=== PATIENT | male | born 1990 | race Caucasian/White ===

== ENCOUNTER 2017-12-16 15:41 | Emergency (ER) | payer MEDICAID, SELFPAY ==
[2017-12-16 15:41] VITALS: BP 135/82; PULSE 76; RESP 15; TEMP 36.2; BMI 29.7
--- NOTE | 2017-12-16 15:56 | ED.VISSUMM ---
- ER Visit Summary Date of Service: 12/16/17 Chief Complaint: Right hand pain History of Present Illness: The patient is a 27 M presenting with right hand pain. Patient states he was at [employer] hanging a banner. He became very frustrated and punched the wall. He is right-handed. He now complains of pain in his right hand. This occurred 30 minutes prior to arrival. No other injuries. Physical Examination: Vitals are stable. Patient is afebrile. Alert no acute distress. HEENT exam is unremarkable. Lungs are clear and equal bilaterally. Heart is regular rate and rhythm. Extremities right 5th metatarsal tenderness with mild swelling. No wrist or elbow tenderness. Painful range of motion. Skin is warm and dry. No focal neurologic deficit. Remainder of exam is unremarkable. Emergency Department Course and Treatment: X-ray of the right hand shows a comminuted fracture of the distal shaft of the fifth metacarpal with moderately severe dorsal angulation deformity at the fracture site. There is also demonstrated a boxer fracture of the distal fourth metacarpal with mild dorsal angulation deformity. Ulnar nerve block was performed using ultrasound. Closed reduction of fracture was attempted. He was put in Ortho-Glass ulnar gutter splint. Advised to follow-up with orthopedics. Advised return ED for worsening complaints. Disposition: Discharge home Impression: Right fourth and fifth metacarpal fracture This note was generated with [employer] dictation software. It may contain incorrect words, spelling, and punctuation that were not noted in review of the chart prior to signing ED Disposition - Plan for ED Patient: Chief Complaint: Upper Extremity Injury Referrals: Care Physician,No Primary [Primary Care Provider] -
--- NOTE | 2017-12-16 16:15 | RAD_ITS ---
STUDY: X-RAY - RIGHT HAND REASON FOR EXAM: Male, 27 years old. Trauma TECHNIQUE: 3 view(s) of the hand. COMPARISON: None. FINDINGS: Normal radiocarpal articulation. Normal distal radioulnar joint. Normal visualized carpal bones. Normal carpal articulations Normal carpometacarpal articulation of the thumb. Normal second through fifth carpometacarpal joints. There is a comminuted fracture of the distal shaft of the fifth metacarpal with moderately severe dorsal angulation deformity at the fracture site. There is also demonstrated a boxer fracture of the distal fourth metacarpal with mild dorsal angulation deformity. Normal metacarpophalangeal joint of the thumb. Normal interphalangeal joint of the thumb. Normal proximal and distal phalanges of the thumb. Normal metacarpophalangeal joints of the second through fifth fingers. Normal proximal and distal interphalangeal joints of the second through fifth fingers. Normal phalanges of the second through fifth fingers. The soft tissue structures are unremarkable. RAD/Hand Min 3 Views IMPRESSION: Fourth and fifth metacarpal fractures as detailed above. Electronically Signed: Zeb Garcia MD at 16:26 EDT , Service support ,
--- NOTE | 2017-12-16 16:48 | ED.DCSUM_ITS ---
- ER Visit Summary Date of Service: 12/16/17 Procedure note: Patient was verbally consented for a ultrasound-guided ulnar nerve block. Patient understands the risks and benefits of the procedure. Patient's ulnar nerve was identified by ultrasound, than his arm was prepped with chlorhexidine. 22-gauge spinal needle was used, and under direct visualization the ulnar nerve had 10 cc 1% lidocaine injected surrounding it. Patient tolerated this well. This note was generated with [employer] dictation software. It may contain incorrect words, spelling, and punctuation that were not noted in review of the chart prior to signing ED Disposition - Plan for ED Patient: Chief Complaint: Upper Extremity Injury Referrals: Care Physician,No Primary [Primary Care Provider] -
--- NOTE | 2017-12-16 17:09 | ED.DEP ---
ED Disposition - Plan for ED Patient: Chief Complaint: Upper Extremity Injury Instructions: ED Fx Hand Closed, ED Fx Boxer Prescriptions: Naproxen [Naprosyn] 500 mg PO BID PRN #20 tablet Referrals: Care Physician,No Primary [Primary Care Provider] - Mykel Pena MD [STAFF PHYSICIAN] -
[2017-12-16 17:18] VITALS: BP 129/76; PULSE 83; RESP 16; O2SAT 99
== END 2017-12-16 17:18 | disposition home or self-care (01) ==
PROVIDERS: Emergency Provider Emergency Medicine
DX: S62.326A Displaced fracture of shaft of fifth metacarpal bone, right hand, initial encounter for closed fracture (principal); S62.304A Unspecified fracture of fourth metacarpal bone, right hand, initial encounter for closed fracture; W22.01XA Walked into wall, initial encounter; Y93.9 Activity, unspecified; Y92.22 Religious institution as the place of occurrence of the external cause; Y99.8 Other external cause status
CPT/HCPCS: 26605; 73130; 99282

== ENCOUNTER 2019-07-06 14:34 | Emergency (ER) | payer MEDICAID, SELFPAY ==
[2019-07-06 14:35] VITALS: BP 124/71; PULSE 88; RESP 15; TEMP 37.1; O2SAT 96; BMI 24.3
[2019-07-06 14:56] VITALS: TEMP 36.3
--- NOTE | 2019-07-06 14:57 | ED.RN ---
MULTIPLE BITES IN VARIOUS LOCATIONS AND VARIOUS SIZES ON R FOREARM AND HAND. STATES ANOTHER DOG CAME INTO HIS YARD AND BIT HIM.
--- NOTE | 2019-07-06 14:59 | RAD_ITS ---
STUDY: X-RAY - RIGHT RADIUS AND ULNA REASON FOR EXAM: Male, 29 years old. Multiple puncture wounds to the right. TECHNIQUE: 2 view(s) of the forearm. COMPARISON: None. FINDINGS: Soft tissue laceration overlying the proximal aspect of the ulna. Normal visualized radius. Normal visualized ulna. RAD/Forearm 2 Views IMPRESSION: Soft tissue laceration overlying the proximal portion of the ulna. Electronically Signed: Govind Gamez, at 15:43 EDT , Service support ,
--- NOTE | 2019-07-06 14:59 | RAD_ITS ---
STUDY: X-RAY - RIGHT HAND REASON FOR EXAM: Male, 29 years old. Dogbite. Puncture wounds. TECHNIQUE: 3 view(s) of the hand. COMPARISON: None. FINDINGS: Normal radiocarpal articulation. Normal distal radioulnar joint. Normal visualized carpal bones. Normal carpal articulations Normal carpometacarpal articulation of the thumb. Normal second through fifth carpometacarpal joints. Deformity of the right fifth metacarpal in keeping with old boxer fracture. Normal metacarpophalangeal joint of the thumb. Normal interphalangeal joint of the thumb. Normal proximal and distal phalanges of the thumb. Normal metacarpophalangeal joints of the second through fifth fingers. Normal proximal and distal interphalangeal joints of the second through fifth fingers. Normal phalanges of the second through fifth fingers. Soft tissue swelling. RAD/Hand Min 3 Views IMPRESSION: No acute abnormality is seen. Electronically Signed: Govind Gamez, at 15:42 EDT , Service support ,
--- NOTE | 2019-07-06 15:01 | ED.VIS.GEN ---
History of Present Illness Chief Complaint: Bite Informant: Patient Onset: Today Context: Sudden Onset Timing: Continuous Narrative: Patient is a 29-year-old male with history of heroin abuse presenting with dog bite to his right arm and hand. Patient states this occurred just prior to arrival. He was in his backyard laying his dogs go out when another dog came and started attacking his dog. The patient jumped up and pulled the dog off of of his dog. The dog then bit his hand and would not let go. The patient dried the dog away and had to kick him off. He is not sure if the dog was wearing a collar did not recognize the dog. There is no orders. Patient immediately came to the emergency room. He complained of pain which she describes as aching in his right forearm and hand. He denies any associated numbness or tingling. Patient denies any other injuries. He states he is never had rabies vaccine before. Patient is unsure when his last tetanus was. Past Medical History - Allergies and Home Meds Allergies/Adverse Reactions: Allergies No Known Allergies Allergy (Verified 07/06/19 14:34) Primary Care Physician: Care Physician,No Primary [Primary Care Provider] - Past Medical History: None Surgical History: no surgical history Smoking Status: Never smoker Drugs: Heroin - Family History Paternal Family History: Reports: - - addiction, father and grandpa alcoholic, uncle heroin. Review of Systems Skin: Reports: Wounds - right hand/forearm Physical Exam Vital Signs/Narrative: Vital Signs Temp Pulse Resp BP Pulse Ox 07/06/19 14:56 97.4 F L 07/06/19 14:35 98.7 F 88 15 124/71 H 96 Inital Vital Signs reviewed: Yes General: Well nourished, Well developed, No Acute Distress Head: Normocephalic, Atraumatic Eyes: Perrl, EOMI ENT: Moist mucous membranes, No rhinorrhea Neck: Supple, Nontender Cardiovascular: Regular rate, Regular rhythm, No murmurs Respiratory: No distress, CTA bilaterally, Chest nontender Back: Nontender, Normal Inspection Extremities: Tenderness - right forearm/hand , Edema - right forearm , - - Normal range of motion and strength in all extremity dermatomes Skin: No rash, Trauma - Scattered puncture wounds and abrasions on right hand over palmar aspect as well as third and fourth fingers on the dorsal aspect, 1 cm puncture wound palmar aspect of fifth metacarpal. 1.5 cm puncture wound ulnar aspect of proximal/mid forearm. Neurological: Alert, Oriented x3, Cranial nerves II-XII grossly intact, Normal Strength, Normal Sensation Psychological: Normal affect, Normal Mood Diagnostic/Tx/Re-eval Diagnostic Data Forearm X-Ray 07/06/19 14:59 IMPRESSION: Soft tissue laceration overlying the proximal portion of the ulna. Electronically Signed: Govind Franco, at 15:43 EDT , Service support , Hand X-Ray 07/06/19 14:59 IMPRESSION: No acute abnormality is seen. Electronically Signed: Govind Franco, at 15:42 EDT , Service support , - Medical Decision Making Patient is evaluated for dog bite. Vaccination status of the dog is unknown and he demonstrated aggressive behavior. Patient was treated empirically for rabies with immunoglobulin as well as toxin. His tetanus is also up-to-date. X-ray does not show any retained foreign bodies. Patient will be started on Augmentin to prevent secondary infection. Laceration repair is not performed as the lacerations are small and because of increased risk of infection. Patient is counseled on signs and symptoms requiring return to the emergency room. Patient verbalizes agreement and understand this plan. Patient discharged home in stable and improved condition. ED Disposition - Plan for ED Patient: Disposition: Home or Assisted Living Diagnosis: Dog bite, Need for Tdap vaccination, Rabies, need for prophylactic vaccination against Instructions: Dog Bite Prescriptions: Amoxicillin/Potassium Clav [Augmentin 875-125 Tablet] 1 ea PO BID #20 tab Prescription Printed Ibuprofen 600 mg PO 4X/DAY PRN #20 tab PRN Reason: Pain Or Fever Prescription Printed Referrals: Fast,Ana, DO [NON-STAFF] - Additional Instructions: Return to the emergency room if you develop any signs of infection such as increased pain, pussy discharge/drainage or redness around the site. Please return for your scheduled tetanus vaccines on day 3, 7 and 14.
[2019-07-06] MEDS: Ibuprofen 600 MG Tablet PO (15:27)
[2019-07-06] MEDS: Diphth,Pertuss(Acell),Tet Vac 0.5 ML Vial IM (15:27)
[2019-07-06] MEDS: Acetaminophen 500 MG Tablet 1000 MG PO (15:27)
[2019-07-06] MEDS: Rabies Vaccine,Human Diploid 2.5 UNITS Vial IM (15:28)
[2019-07-06 16:18] VITALS: BP 112/74; PULSE 76; RESP 18; O2SAT 99
[2019-07-06] MEDS: hydrOXYzine PAM 25 MG Capsule 50 MG PO (16:24)
[2019-07-06] MEDS: BACITRACIN 15 GM Tube 1 APPLIC TOPICAL (16:32)
== END 2019-07-06 16:33 | disposition home or self-care (01) ==
PROVIDERS: Emergency Provider Emergency Medicine
DX: S51.831A Puncture wound without foreign body of right forearm, initial encounter (principal); W54.0XXA Bitten by dog, initial encounter; Y93.9 Activity, unspecified; Y92.096 Garden or yard of other non-institutional residence as the place of occurrence of the external cause; Y99.9 Unspecified external cause status; Z23 Encounter for immunization
CPT/HCPCS: 73090; 73130; 90375; 90471; 90675; 90715; 96372; 99283

== ENCOUNTER 2019-07-06 23:20 | Emergency (ER) | payer MEDICAID, SELFPAY ==
[2019-07-06 14:35] VITALS: BMI 24.3
[2019-07-06 23:22] VITALS: BP 152/116; PULSE 137; RESP 18; TEMP 36.8; O2SAT 93; BMI 23.1
[2019-07-06 23:29] VITALS: PULSE 136
[2019-07-06 23:47] VITALS: BP 114/79; PULSE 108; RESP 20; O2SAT 96
--- NOTE | 2019-07-06 23:51 | EKG12_ITS ---
Test Reason : Blood Pressure : / mmHG Vent. Rate : 112 BPM Atrial Rate : 112 BPM P-R Int : 130 ms QRS Dur : 098 ms QT Int : 344 ms P-R-T Axes : 051 074 040 degrees QTc Int : 469 ms Sinus tachycardia Incomplete right bundle branch block Borderline ECG Confirmed by EDEN COLEMAN, TODD ([id number]), editor sound KAREN LAKHANI ([id number]) on 07/13/2019 11:19:04 AM Referred By: Confirmed By:TODD HARMON MD
--- NOTE | 2019-07-07 00:31 | ED.DCSUM_ITS ---
- ER Visit Summary Date of Service: 07/07/19 Chief Complaint: Reported syncope History of Present Illness: The patient is a 29 M who was found passed out on the road. He woke for police and EMS was called. They noted a heart rate in the 150s. Patient tells me that earlier today he was seen for dog bite. He tells me now (which is different from what he told the earlier physician on the prior visit) that he was watching a dog for a lady who drives truck. After the dog bit him he kept that dog in his garage and the dog was trying to tear down his back door from the garage. This caused him great anxiety and he felt trapped in his house. So after the lady picked up the dog he went for a walk w ith his own dog. He states that he was doing a walk to help calm down. He states his anxiety caused him to pass out in the street. He reportedly told EMS that he had taken something. He now denies this to me and the police. Physical Examination: Afebrile vital signs show a tachycardic rhythm and rate of 160 Gen: Well-nourished well-developed Head: Normocephalic there are facial abrasions nose no septal hematoma Eyes: Perrl EOMI ENT: TMs clear no rhinorrhea moist mucous membranes Neck: Supple no lymphadenopathy no JVD nontender CVS: Regular rate rhythm no murmurs normal S1-S2 Respiratory: No distress clear to auscultation bilaterally chest nontender Abdomen: Soft nontender nondistended normal bowel sounds no masses Back: Nontender Extremity: Unkept bandage to the right forearm from his prior ER visit and abrasion/dog bites noted no edema Skin: Normal color no rash Neuro: alert orientated ?3 CN II-XII intact normal strength sensation reflexes gait cerebellar Psych: Patient seems hyper alert he continuously rubs his face he is directable but is aggressively talking as we try to ask him what happened to him Test Results: EKG shows a sinus tach at a rate of 112. This was compared to prior EKG when is admitted for an overdose and does not appear different Emergency Department Course and Treatment: Patient will be discharged home. His prior wounds were redressed. The police are going to give him a ride home and see if they can help find his dog. Impression: 1. Syncope 2. Anxiety 3. Facial abrasions This note was generated with [email or web address] dictation software. It may contain incorrect words, spelling, and punctuation that were not noted in review of the chart prio r to signing ED Disposition - Plan for ED Patient: Disposition: Home or Assisted Living Instructions: Anxiety Reaction, SYNCOPE, Unk Cause Referrals: Yudy Winter MD [STAFF PHYSICIAN] - As soon as possible
[2019-07-07 00:36] VITALS: PULSE 114; O2SAT 96
== END 2019-07-07 00:37 | disposition home or self-care (01) ==
PROVIDERS: Emergency Provider Emergency Medicine
DX: R55 Syncope and collapse (principal); F41.9 Anxiety disorder, unspecified; S00.81XA Abrasion of other part of head, initial encounter; W54.0XXA Bitten by dog, initial encounter; Y92.59 Other trade areas as the place of occurrence of the external cause
CPT/HCPCS: 93005; 99285

== ENCOUNTER 2019-07-07 13:57 | Inpatient (IN) | payer MEDICAID, SELFPAY ==
[2019-07-06 23:22] VITALS: BMI 23.1
[2019-07-07] VITALS (25 sets, daily range): BP systolic 86–202; BP diastolic 51–134; PULSE 96–156; RESP 12–36; TEMP 35.4–37.9; O2SAT 52–100; BMI 24.7; BMI 22.4
--- NOTE | 2019-07-07 14:05 | EKG12_ITS ---
Test Reason : OD Blood Pressure : / mmHG Vent. Rate : 130 BPM Atrial Rate : 130 BPM P-R Int : 126 ms QRS Dur : 082 ms QT Int : 308 ms P-R-T Axes : 062 082 054 degrees QTc Int : 453 ms Sinus tachycardia Otherwise normal ECG Confirmed by SADIA COLEMAN, YONI ([id number]), desk editor KAREN LAKHANI ([id number]) on 07/13/2019 10:13:59 AM Referred By: Kiana Darby Confirmed By:YONI MCCULLOUGH MD
--- NOTE | 2019-07-07 14:05 | CPS ---
Patient placed on BiPAP at this time per order. Patient tolerating well.
--- NOTE | 2019-07-07 14:05 | RAD_ITS ---
STUDY: X-RAY CHEST REASON FOR EXAM: Male, 29 years old. Overdose, found face down TECHNIQUE: Single AP portable view of the chest. COMPARISON: 01/12/2017 FINDINGS: EKG leads project over the chest. Bilateral upper lobe interstitial and airspace opacities are identified with additional opacity in the left lower lobe. There is no demonstrated pleural abnormality. Normal size heart. Normal mediastinum and brendon. Normal visualized pulmonary arteries. Normal visualized aortic arch and descending thoracic aorta. No acute bony process. There is no demonstrated abnormality of the visualized soft tissue structures of the upper abdomen. RAD/Chest 1 View (Portable) IMPRESSION: Multilobar mixed infiltrates suggesting pulmonary edema or pneumonia. Electronically Signed: Tacho Arzola MD ([place]) at 14:56 EDT , Service support ,
--- NOTE | 2019-07-07 14:10 | CT_ITS ---
STUDY: CT BRAIN WITHOUT CONTRAST REASON FOR EXAM: Male, 29 years old. Overdose, found face down, facial lacerations RADIATION DOSAGE (If Supplied By Facility): CTDIvol = ( 44.99 ) mGy, DLP = ( 829.85 ) mGycm TECHNIQUE: Transaxial CT imaging of the brain was performed without administration of intravenous contrast material. Individualized dose optimization techniques were used for this CT. COMPARISON: No relevant priors. FINDINGS: Normal soft tissue structures. Normal calvarium. Normal size ventricles and extra-axial spaces for the patient's age. Normal white matter tracts of the cerebral hemispheres. Normal basal ganglia and thalami. Normal brainstem. Normal cerebellum. There is no intracranial hemorrhage. There are no findings of an acute ischemic infarction. Normal visualized paranasal sinuses. CT/Brain/Head without Contrast IMPRESSION: No acute intracranial hemorrhage or mass effect. Electronically Signed: Tacho Arzola MD ([place]) at 14:59 EDT , Service support ,
[2019-07-07 14:26] LABS: Absolute Lymphocyte Count 1.87 X10^3/uL (0.83-4.51); Absolute Neutrophil Count 17.5 X10^3/uL (2.0-7.7); Basophil# 0.07 X10^3/uL; Basophil% 0.3 % (0-1); Eosinophil# 0.11 X10^3/uL; Eosinophils% 0.5 % (0-5); Hematocrit 50.7 % (40-54); Hemoglobin 16.3 g/dL (13.0-16.5); Lymphocyte # 1.87 X10^3/ul (4.0); Lymphocyte % 9.3 % (19-41); Mean Corp Hgb Conc 32.1 g/dL (32-36); Mean Corpuscular Hgb 30.9 pg (27.0-32.0); Mean Platelet Vol. 10.1 fl (6.2-12.0); Monocyte# 0.48 X10^3/uL; Monocyte% 2.4 % (0-10); NRBC Flagged by Analyzer 0 % (0-5); Neutrophil # 17.52 X10^3/uL (2.7-7.7); Platelet Count 282 K/mm3 (150-450); RBC Distribution Width CV 13.5 % (11.6-14.6); RBC Distribution Width SD 48.1 fl (35.1-43.9); Red Blood Count 5.28 M/mm3 (4.6-6.2); White Blood Count 20.2 K/mm3 (4.4-11.0)
--- NOTE | 2019-07-07 14:37 | ED.DCSUM_ITS ---
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 EMS states that he was found at the [facility], face down. When they were able to arrive to home he was able to sit up on his own, appeared cyanotic, had increased work of breathing. He was given 1 mg of Narcan intranasally. Was then given 0.5 mg of Narcan IV. Symptoms did improve somewhat. Patient remained cyanotic. Patient does admit he snorted heroin earlier today. Denies any other drug use. Denies any IV drug use. Patient was to dyspnea. Denies any recent illness. History is somewhat limited secondary to patient's increased work of breathing Past Medical History - Allergies and Home Meds Allergies/Adverse Reactions: Allergies No Known Allergies Allergy (Verified 07/07/19 14:02) Surgical History: no surgical history Smoking Status: Current every day smoker Drugs: Heroin - Family History Paternal Family History: Reports: - - addiction, father and grandpa alcoholic, uncle heroin. Maternal Family History: Reports: No pertinent history Review of Systems ROS: Unable to Obtain - Limited secondary to respiratory distress General: Reports: Chills Respiratory: Reports: Dyspnea, Cough Gastrointestinal: Denies: Nausea, Vomiting Skin: Reports: Wounds Physical Exam Vital Signs/Narrative: Vital Signs Temp Pulse Resp BP Pulse Ox 07/07/19 14:06 88 07/07/19 14:05 136 H 24 H 111/98 H 100 07/07/19 14:04 124 H 32 H 52 07/07/19 13:57 95.8 F L 129 H 30 H 143/94 H 59 General: Acute Distress Head: - - Abrasions over bridge of nose Eyes: Perrl, EOMI ENT: Moist mucous membranes Cardiovascular: Tachycardia Respiratory: Retractions, - - Patient has diffuse crackles throughout all lung red, increased work of breathing, hypoxic Abdomen: Soft, Nontender Back: Normal Inspection Extremities: No edema, - - Patient has numerous small wounds over left hand secondary to dog bite last night. He was seen in the ED for this. Neurological: Alert Diagnostic/Tx/Re-eval Clinical Impression(s) from Imaging Studies Chest X-Ray 07/07/19 14:05 IMPRESSION: Multilobar mixed infiltrates suggesting pulmonary edema or pneumonia. Electronically Signed: Tacho Arzola MD (Brooks) at 14:56 EDT , Service support , Brain CT 07/07/19 14:10 IMPRESSION: No acute intracranial hemorrhage or mass effect. Electronically Signed: Tacho Arzola MD (Brooks) at 14:59 EDT , Service support , Laboratory Data 07/07/19 07/07/19 07/07/19 14:10 14:10 14:10 WBC 20.2 H RBC 5.28 Hgb 16.3 Hct 50.7 MCV 96.0 H MCH 30.9 MCHC 32.1 RDW Std Deviation 48.1 H RDW Coeff of Zari 13.5 Plt Count 282 MPV 10.1 Immature Gran % (Auto) 0.500 Neut % (Auto) 87.0 H Lymph % (Auto) 9.3 L [place] % (Auto) 2.4 Eos % (Auto) 0.5 Baso % (Auto) 0.3 Absolute Neuts (auto) 17.5 H Absolute Lymphs (auto) 1.87 Nucleated RBC % 0 PT 14.5 INR 1.2 APTT 30.3 Specimen Type Sample Site pH Bicarbonate Actual POC Total CO2 Base Excess O2 Saturation O2 % ABG pCO2 ABG pO2 Kofi Test Respiration Rate O2 Delivery Device EPAP IPAP Blood Gas Notified Whom Blood Gas Notified Time Sodium 139 Potassium 4.0 Chloride 103 Carbon Dioxide 25.0 Anion Gap 11 BUN 13 Creatinine 1.07 Estim Creat Clear Calc 104.23 Est GFR (MDRD) Af Amer 104 Est GFR (MDRD) Non-Af 86 BUN/Creatinine Ratio 12.1 Glucose 267 H Lactic Acid Calcium 8.6 Total Bilirubin 0.30 AST 21 ALT 39 Alkaline Phosphatase 80 Total Creatine Kinase 279 Troponin I < 0.015 Total Protein 7.9 Albumin 4.2 Globulin 3.7 Albumin/Globulin Ratio 1.1 07/07/19 07/07/19 14:10 14:35 WBC RBC Hgb Hct MCV MCH MCHC RDW Std Deviation RDW Coeff of Zari Plt Count MPV Immature Gran % (Auto) Neut % (Auto) Lymph % (Auto) [place] % (Auto) Eos % (Auto) Baso % (Auto) Absolute Neuts (auto) Absolute Lymphs (auto) Nucleated RBC % PT INR APTT Specimen Type ART Sample Site R Radial pH 7.12 L* Bicarbonate Actual 21.1 L POC Total CO2 23 Base Excess -8 L O2 Saturation 96 O2 % 100 ABG pCO2 65.3 H ABG pO2 112 H Kofi Test NA Respiration Rate 12 O2 Delivery Device Bi / C PAP EPAP 8 IPAP 18 Blood Gas Notified Whom ED Blood Gas Notified Time 1433 Sodium Potassium Chloride Carbon Dioxide Anion Gap BUN Creatinine Estim Creat Clear Calc Est GFR (MDRD) Af Amer Est GFR (MDRD) Non-Af BUN/Creatinine Ratio Glucose Lactic Acid 7.2 H* Calcium Total Bilirubin AST ALT Alkaline Phosphatase Total Creatine Kinase Troponin I Total Protein Albumin Globulin Albumin/Globulin Ratio Clinical Impression(s) from Imaging Studies Chest X-Ray 07/07/19 14:05 IMPRESSION: Multilobar mixed infiltrates suggesting pulmonary edema or pneumonia. Electronically Signed: Tacho Arzola MD (Brooks) at 14:56 EDT , Service support , Brain CT 07/07/19 14:10 IMPRESSION: No acute intracranial hemorrhage or mass effect. Electronically Signed: Tacho Arzola MD (Brooks) at 14:59 EDT , Service support , - EKG Initial EKG Interpretation: - - Sinus tachycardia 130 bpm, TX interval 126, QRS 82, QTc 453. Normal axis, artifact at baseline. No ST elevation, ST depression noted. - Medical Decision Making Patient was evaluated after reported overdose. He admits to using heroin. He was found outside. On initial evaluation he was tachycardic, tachypneic, hypoxic and hypothermic. Septic work-up initiated. Patient was quickly placed on BiPAP. ABG shows a pH of 7.11, PCO2 of 65, PO2 of 112. Patient had leukocytosis of 20. Patient's lactic acidosis was 7.1. CT brain was negative. Chest x-ray showed infiltrate versus pulmonary edema. My initial suspicion is that patient may have pulmonary edema secondary to his heroin overdose and then developed a secondary aspiration pneumonia. Patient placed on vancomycin and Zosyn. At this time given patient's hypoxia, pulmonary edema on chest x-ray he would not be given a 30 cc/kg of IV fluid. Case discussed with Dr. Carter and on-call medicine physician, Dr. Aldridge. ABG will be repeated. Patient will be admitted to ICU. On reevaluation patient's heart rate improved to 120s, he was satting 100% on BiPAP. Prior to patient being transferred to ICU he began to have emesis, frothy sputum. He appeared to be fatiguing. At this time it was decided to intubate the patient. Patient was intubated using 20 mg of etomidate, 1 mg/per kilogram of rocuronium. Intubated under direct laryngoscopy with a 7.5 tube on first attempt. ET tube at 23 cm at patient's lip. Post intubation x-ray obtained. Tube was retracted 2 cm. He was then sedated with propofol and admitted to the ICU. Impression: 1. Acute hypoxic respiratory failure 2. Heroin overdose 3. Pulmonary edema 4. Likely aspiration pneumonia 5. Lactic acidosis 6. Critical care time 33 minutes. 7. Intubation by ED physician. I supervised the resident and have performed my own pertinent history and physical. Results and treatment plan were discussed. HPI: Patient was seen in the emergency department for a dog bite. He he was found today face down in a park. He reports that he snorted heroin. He denies IV drug abuse. He received Narcan on the way here. He is now alert and appropriate. However, his pulse ox is in the 50s. He denies any respiratory illness that preceded this. PE: Vitals: Awake and alert. Pulse ox in the 50s. Heart rate in the 120s. General: Well-nourished and well-developed. Head: Normocephalic, abrasions to his nose. Neck: Supple, no lymphadenopathy. No JVD. Nontender. Cardiovascular: Tachycardic regular rhythm. No murmurs. Respiratory: Severe respiratory distress. Rhonchi throughout bilaterally.. Abdominal: Soft, nontender, nondistended, normal bowel sounds. No guarding, rebound, or peritoneal signs. Back: Nontender. Extremities: Nontender, no edema. No track desir or evidence of abscess. Skin: Normal color, no rash. Neurologic: Alert and oriented ?3. Cranial nerves II through XII are intact. Normal strength and sensation. Psych: Normal affect. Emergency Department course: Patient was alert on arrival. He did not require any further Narcan. He was placed on BiPAP. ABG was obtained and shows a pH of 7.1. This is a mixed respiratory and metabolic acidosis. Lactic acid is 7. Patient was given Zosyn and vancomycin IV due to the chance of aspiration and the potential for MRSA with questionable bilateral infiltrates. He was not given a 30 cc/kg bolus of normal saline due to the question of pulmonary edema. I suspect the lactic acidosis is due to global hypoxia rather than sepsis at this time. On repeat evaluation the patient is still awake and alert. He reports that he feels 100% better. His pulse ox is 100%. However, on repeat ABG his pH is still 7.2 and his O2 was 125 on 90% by BiPAP. I discussed the possibility the patient is going to worsen. He does not want to be intubated unless he does worsen. Prior to being transferred to the emergency department patient vomited and then began coughing up pink frothy sputum. He is no longer a suitable candidate for BiPAP. I discussed this with him and he has agreed to intubation. He was preoxygenated on BiPAP. He was given rocuronium and etomidate. Intubated on the first attempt. His pulse ox did not ever decrease below 90% during this. He tolerated it well. Treatment Plan: Patient was discussed with Dr. Carter and Dr. Darby. He will be admitted to the ICU for further evaluation and treatment. This note was generated with [employer] dictation software. It may contain incorrect words, spelling, and punctuation that were not noted in review of the chart prio r to signing. - Critical Care Time Critical care time (excluding procedures): 30-74 minutes, Discussing w/Patient &/or Family/Instrument Designer, Discussing w/Consultants, Arranging Admission or Transfer, Performing Direct Patient Care at Bedside ED Disposition - Plan for ED Patient: Disposition: [facility]
[2019-07-07 14:38] LABS: International Normalized Ratio 1.2; Partial Thromboplast Time 30.3 Seconds (24.1-36.2); Prothrombin Time (Protime)PT. 14.5 SECONDS (11.7-14.9)
--- NOTE | 2019-07-07 14:38 | ED.RN ---
pt has family in waiting area. rn assisting with care called and is aware. jacqueline oviedo, [phone]
[2019-07-07 14:43] LABS: ALB/GLOB Ratio 1.1 RATIO (0.9-2.4); AST(SGOT) 21 U/L (15-37); Alanine Aminotransfer ALT/SGPT 39 U/L (16-61); Albumin, Serum 4.2 g/dL (3.2-5.0); Alkaline Phosphatase 80 U/L (45-117); Anion Gap 11 (5-15); BUN 13 mg/dL (7-18); BUN/Creat Ratio 12.1 RATIO (10-20); CPK Total, Creatine Kinase 279 U/L (39-308); Calcium,Total 8.6 mg/dL (8.5-10.1); Chloride 103 mmol/L (98-107); Creatinine, Serum 1.07 mg/dL (0.70-1.30); EST Glomerular Filtration Rate 86 mL/min (>60); Est Glom Filt Rate - Afr Amer 104 mL/min (>60); Estimated Creatinine Clearance 104.23 ml/min; Globulin 3.7 g/dL (2.2-4.2); Glucose 267 mg/dL (74-106); Protein, Total 7.9 g/dL (6.4-8.2); Sodium Level 139 mmol/L (136-145)
--- NOTE | 2019-07-07 14:43 | CPS ---
Critical PH of 7.[address] Huitron notified
[2019-07-07 14:46] LABS: Base Excess -8 mmol/L (-2 to +2); Bicarbonate 21.1 mmol/L (22-26); Blood Gas Specimen Type ART; EPAP 8; FI02 100; IPAP 18; PO2 112 mmHG (75-100); RR 12; SITE R Radial; SO2 96 % (95-99); Time Given 1433; Total Carbon Dioxide 23 mmol/L; pCO2 65.3 mmHg (35-45); pH 7.12 (7.35-7.45)
[2019-07-07 15:10] LABS: Lactic Acid 7.2 mmol/L (0.4-2.0)
--- NOTE | 2019-07-07 15:12 | ED.RN ---
LACTIC 7.[address] THE LAB. DR TODD AWARE
--- NOTE | 2019-07-07 15:41 | HP.PCM_ITS ---
Problem List (1) Unresponsiveness Status: Acute (2) Respiratory failure Status: Acute Qualifiers: Chronicity: acute Respiratory failure complication: hypoxia and hypercapnia Qualified Code(s): J96.01 - Acute respiratory failure with hypoxia; J96.02 - Acute respiratory failure with hypercapnia (3) Polysubstance (including opioids) dependence with physiol dependence Status: Acute (4) Nicotine abuse Status: Acute (5) Lactic acidosis Status: Acute History of Present Illness Date of Admission: 07/07/19 Chief Complaint: Unresponsiveness, altered mental status - 1 day The patient is a 29 year old M with no significant past medical history who was found lying face down and unresponsive. The EMS were called for a male lying in the pavilion and acting erratic. There was a [place] Patel dog with him. Upon arrival, patient was lying facedown, unresponsive and the [place] Pat[place] dog apparently charged several times at squad personnel. [place] police department arrived on scene and secured the dog. At that point, patient was said to be sitting up. Pupils were said to be pinpoint and not responsive. Patient was also seen scratching his face. His initial pulse ox was in the low 60s. He appears cyanotic. He was given 2 mg Narcan intranasally. He was not responding to well and received an extra 1 mg IV Narcan. He then became more responsive and started to answer questions. Patient was seen in the emergency department 2 times a day before admission. He had come in initially with multiple dog bites on his right hand and forearm. He had reported back to the emergency department later that night after he was found by the police department unresponsive. He admitted to feeling anxious. He was discharged home. 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 He reportedly got multiple dog bites yesterday on his right upper extremity when he tried to separate some dogs that were attacking the dogs he was watching. Patient admits that he snorted heroine mixed with probable fentanyl this morning close to 12 noon. The EMS arrived at 1:47 PM per squ report. On arrival to the ED, his vitals showed temperature 95.8 F, heart rate 129, b lood pressure 143/94, respiratory rate was 30, SPO2 was 59% on room air. BC count was 20.2, hemoglobin 16.2, platelet count was 282, INR 1.2, APTT 30.3, pH was 7.12, PO2 was 112 on BiPAP 18/8, PCO2 65.3. Chest x-ray showed multilobar mixed infiltrate suggesting pulmonary edema versus pneumonia. CT scan of the brain showed no acute intracranial hemorrhage or mass-effect. Past Medical History Allergies No Known Allergies Allergy (Verified 07/07/19 14:02) Home Medications: Ambulatory Orders Medication Instructions Recorded Amoxicillin/Potassium Clav 1 ea PO BID #20 tab 07/06/19 [Augmentin 875-125 Tablet] Ibuprofen 600 mg PO 4X/DAY PRN #20 tab 07/06/19 Surgical History: no surgical history Psychiatric History: No pertinent psych hx Lives: With Family Smoking Status: Current every day smoker Tobacco Use: Cigarettes Alcohol: Occasional Drugs: Heroin, - - fentanyl - *Family History Paternal History Items: - - addiction, father and grandpa alcoholic, uncle heroin. Maternal History Items: No pertinent history Review of Systems Constitutional: Denies: Anorexia, Chills, Fever, Malaise, Weakness, Weight Change, Fatigue Eyes: Denies: Blurred vision, Cataracts, Conjunctivae Inflammation, Pain, Redness HEENT: Denies: Difficulty Hearing, Difficulty Swallowing, Head Aches, Hearing Changes, Sinus Congestion, Sinus Drainage Cardiovascular: Reports: Chest Pain. Denies: Heaviness, Light Headedness, Orthopnea, Palpitations, Paroxysmal Noc. Dyspnea, Syncope Respiratory: Reports: Hemoptysis, Shortness of Breath, Shortness of breath at rest, Shortness of breath upon exertion. Denies: Cough, Sputum production Gastrointestinal: Denies: Abdominal Pain, Constipation, Hematemesis, Hematochezia, Nausea, Vomiting Genitourinary: Denies: Dysuria, Frequency, Incontinence Musculoskeletal: Denies: Joint Pain, Joint stiffness, Joint swelling, Joint Tenderness Skin: Denies: Rash, Wounds Neurological: Denies: Difficulty swallowing, Focal weakness, Numbness, Tingling Psychiatric: Denies: Anxiety, Depression, Homicidal Ideations, Suicidal Ideations Hematologic/ Lymphatic: Denies: Easy Bruising, Easy Bleeding VTE Information - Inpt Only VTE Present on Admission: No VTE Pharm Prophylaxis ordered?: Yes Patient Problems: Active and Suspected Problems Unresponsiveness (Acute) Respiratory failure (Acute) Polysubstance (including opioids) dependence with physiol dependence (Acute) Nicotine abuse (Acute) Lactic acidosis (Acute) - Physical Exam General: Alert, Oriented x3, Cooperative, - - on Bipap HEENT: Atraumatic, PERRLA, EOMI, Normocephalic, - - facial abrasions Oral: Dry Mucosa Neck: Supple Lungs: Diminished, Rales - Generalised, no wheezes heard, Tachypneic Cardiovascular: Regular rate, Regular Rhythm, Normal S1, Normal S2, No murmurs Abdomen: Bowel Sounds Present, Soft, Non Tender, Non-Distended, No Hepato- splenomegaly Extremities: No edema, - - Right hand and forearm appear swolled, multiple dog bites and scratch bites/desir on the left upper extremity Skin: No rashes, No breakdown Musculoskeletal: No Tenderness to Palpation of Joints or Extremities Lymphatic: No Cervical, Supraclavicular, or Inguinal Adenopathy Neurological: Cranial nerves II-XII grossly intact Psych/Mental Status: Normal Affect, Appropriate Vital Signs Temp Pulse Resp BP Pulse Ox 97.7 F L 117 H 18 114/81 H 100 07/07/19 15:26 07/07/19 15:26 07/07/19 15:26 07/07/19 15:26 07/07/19 15:26 Oxygen Flow Rate (L/min) 15 Oxygen Delivery Method Bi-pap Weight: 78.4 kg Body Mass Index (BMI) 24.7 Laboratory Tests Past 24 Hrs 07/07/19 07/07/19 07/07/19 14:10 14:10 14:10 WBC 20.2 H RBC 5.28 Hgb 16.3 Hct 50.7 MCV 96.0 H MCH 30.9 MCHC 32.1 RDW Std Deviation 48.1 H RDW Coeff of Zari 13.5 Plt Count 282 MPV 10.1 Immature Gran % (Auto) 0.500 Neut % (Auto) 87.0 H Lymph % (Auto) 9.[address] [place] % (Auto) 2.4 Eos % (Auto) 0.5 Baso % (Auto) 0.3 Absolute Neuts (auto) 17.5 H Absolute Lymphs (auto) 1.87 Nucleated RBC % 0 PT 14.5 INR 1.2 APTT 30.3 Specimen Type Sample Site pH Bicarbonate Actual POC Total CO2 Base Excess O2 Saturation O2 % ABG pCO2 ABG pO2 Kofi Test Respiration Rate O2 Delivery Device EPAP IPAP Blood Gas Notified Whom Blood Gas Notified Time Sodium 139 Potassium 4.0 Chloride 103 Carbon Dioxide 25.0 Anion Gap 11 BUN 13 Creatinine 1.07 Estim Creat Clear Calc 104.23 Est GFR (MDRD) Af Amer 104 Est GFR (MDRD) Non-Af 86 BUN/Creatinine Ratio 12.1 Glucose 267 H Lactic Acid Calcium 8.6 Total Bilirubin 0.30 AST 21 ALT 39 Alkaline Phosphatase 80 Total Creatine Kinase 279 Troponin I < 0.015 Total Protein 7.9 Albumin 4.2 Globulin 3.7 Albumin/Globulin Ratio 1.1 07/07/19 07/07/19 14:10 14:35 WBC RBC Hgb Hct MCV MCH MCHC RDW Std Deviation RDW Coeff of Zari Plt Count MPV Immature Gran % (Auto) Neut % (Auto) Lymph % (Auto) [place] % (Auto) Eos % (Auto) Baso % (Auto) Absolute Neuts (auto) Absolute Lymphs (auto) Nucleated RBC % PT INR APTT Specimen Type ART Sample Site R Radial pH 7.12 L* Bicarbonate Actual 21.1 L POC Total CO2 23 Base Excess -8 L O2 Saturation 96 O2 % 100 ABG pCO2 65.3 H ABG pO2 112 H Kofi Test NA Respiration Rate 12 O2 Delivery Device Bi / C PAP EPAP 8 IPAP 18 Blood Gas Notified Whom ED MD Blood Gas Notified Time 1433 Sodium Potassium Chloride Carbon Dioxide Anion Gap BUN Creatinine Estim Creat Clear Calc Est GFR (MDRD) Af Amer Est GFR (MDRD) Non-Af BUN/Creatinine Ratio Glucose Lactic Acid 7.2 H* Calcium Total Bilirubin AST ALT Alkaline Phosphatase Total Creatine Kinase Troponin I Total Protein Albumin Globulin Albumin/Globulin Ratio Assessment/Plan All Active Problems Unresponsiveness (Acute) Respiratory failure (Acute) Polysubstance (including opioids) dependence with physiol dependence (Acute) Nicotine abuse (Acute) Lactic acidosis (Acute) 29 year old M with no significant past medical history who was found lying face down and unresponsive. 1. Unresponsiveness/altered mental status secondary to reported opioid overdose Status post Narcan, intranasally and intravenously; patient is awake and oriented x3 Plan: Admit to ICU, monitor per protocol, may need further Narcan on account of use of fentanyl 2. Acute combined respiratory failure secondary to aspiration pneumonitis, saturating well on BiPAP Continue on current BiPAP settings, wean off for SPO2 more than 94% 3. Aspiration pneumonitis related to previous of opioid overdose and unresponsiveness Admitting chest x-ray written as multilobar infiltrates versus pulmonary edema Started on IV vancomycin and Zosyn We will continue only on IV Zosyn, encourage use of incentive spirometer, Lasix 20 mg IV x1 Repeat chest x-ray in a.m. 4. Lactic acidosis secondary to hypoxia, admitting lactic acid 7.2 No signs of sepsis; admitting tachycardia secondary to acute respiratory failure Leukocytosis of 20.2 is likely reactive 5. Recent dog bites to the right upper extremity, no signs of cellulitis or di scharge from the dog bite and scratch wounds Received rabies vaccine Will continue on IV Zosyn 6. Polysubstance abuse, advised to quit, patient expresses to quit; Will consult social work for drug rehab programs 7. Nicotine abuse, advised to quit, on nicotine replacement 8. DVT PPx- SCDs 9. GI PPx- Famotidine IV Code Visit Inpatient E&M: 88406 Subs Hosp L3
--- NOTE | 2019-07-07 16:01 | CPS ---
Results of ABG called to Dr. Darby.
[2019-07-07 16:03] LABS: Bacteria 0 SEEN /hpf (None Seen); Mucous, Urine 0 SEEN /hpf (<or=2+); Red Blood Cells-Urine 0 SEEN /hpf (0-5); Squamous Epithelial Cells - UA 0 SEEN /hpf (0-5)
[2019-07-07 16:05] LABS: Color, Urine Yellow (Yellow); Glucose, Dipstick 1000 mg/dl (Normal); Ketone-Dipstick Negative (Negative); Leukocyte Esterase-Dipstick 100 /ul (Negative); Nitrite-Dipstick Negative (Negative); Occult Blood-Urine 25 /ul (Negative); Protein-Dipstick 30 mg/dl (Negative); Specific Gravity, Urine 1.025 (1.002-1.030); Urine Bilirubin Dipstick Negative (Negative); Urine Clarity Clear (Clear); Urine Urobilinogen Normal (Normal)
[2019-07-07 16:06] LABS: Allen Test POS; Base Excess -5 mmol/L (-2 to +2); Bicarbonate 22.5 mmol/L (22-26); Blood Gas Specimen Type ART; EPAP 8; FI02 90; IPAP 18; PO2 125 mmHG (75-100); SITE R Radial; SO2 98 % (95-99); Time Given 1552; Total Carbon Dioxide 24 mmol/L; pCO2 50.1 mmHg (35-45); pH 7.26 (7.35-7.45)
[2019-07-07 16:14] LABS: White Blood Cells 25-50 SEEN /hpf (0-5)
[2019-07-07 16:26] LABS: Hyaline Cast 0-5 SEEN /lpf (0-5)
[2019-07-07 17:44] LABS: Hemoglobin A1c 4.9 % (4.2-6.3)
[2019-07-07] MEDS: fentaNYL 100 MCG/2 ML Ampul 50 MCG IV (17:49)
[2019-07-07] MEDS: HYDROmorphone 1 MG/ML Syringe IV (17:49)
[2019-07-07] MEDS: Rocuronium Bromide 50 MG/5 ML Vial 73 MG IV (17:49)
[2019-07-07] MEDS: Etomidate 20 MG/10 ML Vial IV (17:49)
[2019-07-07] MEDS: Propofol 10MG/Ml 1,000 MG/100 ML Bottle 4.7 MG CONT INF (17:49)
--- NOTE | 2019-07-07 18:00 | RAD_ITS ---
STUDY: X-RAY CHEST REASON FOR EXAM: Male, 29 years old. Tube placement verification TECHNIQUE: Frontal portable view of the chest was performed COMPARISON: 07 July 2019 same day earlier FINDINGS: Endotracheal tube is in place with its tip less than 1 cm from the dimas. Gastric drainage tube is in place with its side-port at the gastroesophageal junction and tip presumably in the fundus. However, there is somewhat atypical deviation of the tube in the upper mediastinum, of unclear significance. There is severe diffuse floccular appearing central and mid lung opacity with mild subpleural peripheral sparing. Cardiac size is normal. There is no pneumothorax. There is a possible small left pleural effusion. Osseous structures are intact RAD/Chest 1 View (Portable) IMPRESSION: 1. Endotracheal tube less than 1 cm from the dimas, consider partial retraction 2. Presumably normal position of gastric drainage tube, attention to position is advised on the next image. 3. Severe diffuse lung disease, likely noncardiogenic pulmonary edema/acute alveolar injury. Consider inhalational injury versus pneumonia. Electronically Signed: Hyacinth Dumont, at 18:34 EDT Tel , Service support ,
[2019-07-07 18:17] LABS: Reflex Lactate? Y
[2019-07-07] MEDS: fentaNYL drip 100 ML 2.5 MCG IV (18:20)
[2019-07-07] MEDS: Ipratropium/Albuterol Sulfate 3 ML AMPUL.NEB INHALATION (18:27)
[2019-07-07] MEDS: Famotidine 200 MG/20 ML MDV 20 MG in 0.9% Normal Saline (Pres. free 8 ML 300 MG IV (18:53)
[2019-07-07] MEDS: 0.9% Normal Saline 1,000 ML 100 ML IV (18:55)
[2019-07-07 19:25] LABS: Amphetamine Urine VISTA NEGATIVE (<1000 ng/mL); Barbiturate Urine VISTA NEGATIVE (< 200 ng/mL); Benzodiazepine Urine VISTA NEGATIVE (< 200 ng/mL); Cocaine Urine VISTA NEGATIVE (< 300 ng/mL); Ecstacy Urine VISTA NEGATIVE (< 500 ng/mL); Methadone Urine VISTA NEGATIVE (< 300 ng/mL); PCP Urine VISTA NEGATIVE (< 25 ng/mL); THC Urine VISTA POSITIVE (< 50 ng/mL); Vista UDS pH Range 6
[2019-07-07 19:31] LABS: Allen Test POS; Base Excess -4 mmol/L (-2 to +2); Bicarbonate 24.1 mmol/L (22-26); Blood Gas Specimen Type ART; FI02 85; Mode A-C; O2 Delivery Device Vent; PEEP 5; PO2 76 mmHG (75-100); RR 14; SITE R Radial; SO2 92 % (95-99); Total Carbon Dioxide 26 mmol/L; Vt 450; pCO2 58.8 mmHg (35-45); pH 7.22 (7.35-7.45)
[2019-07-07 19:40] LABS: Alcohol, Blood (Medical)-Serum < 3.0 mg/dL
[2019-07-07 19:49] LABS: Lactic Acid 1.1 mmol/L (0.4-2.0)
[2019-07-07 20:33] LABS: Triglycerides 95 mg/dL
[2019-07-07] MEDS: LORazepam 2 MG/ML Syringe IV (20:33)
[2019-07-07] MEDS: Chlorhexidine 15 ML PO (21:22)
[2019-07-07] MEDS: Propofol 10MG/Ml 1,000 MG/100 ML Bottle 23.5 MG CONT INF (21:57)
[2019-07-07] MEDS: fentaNYL drip 100 ML 15 MCG IV (23:03)
[2019-07-07 23:44] LABS: M R Staph aureus DNA By PCR POSITIVE (Negative); Probe Check PASS
[2019-07-08] VITALS (43 sets, daily range): BP systolic 89–118; BP diastolic 35–71; PULSE 88–118; RESP 14–18; TEMP 37.6–38.7; O2SAT 94–100; BMI 73.9
[2019-07-08] MEDS: Ipratropium/Albuterol Sulfate 3 ML AMPUL.NEB INHALATION ×3 (00:23→13:20)
[2019-07-08] MEDS: LORazepam 2 MG/ML Syringe IV ×4 (00:43→22:23)
[2019-07-08] MEDS: Furosemide 40 MG/4 ML Vial IV (01:01)
[2019-07-08] MEDS: Propofol 10MG/Ml 1,000 MG/100 ML Bottle 23.5 MG CONT INF ×2 (01:56→05:14)
[2019-07-08] MEDS: CHLORHEXIDINE GLUC 2% CLOTH 1 EACH TOWELETTE TOPICAL (03:56)
[2019-07-08 04:11] LABS: Absolute Lymphocyte Count 0.97 X10^3/uL (0.83-4.51); Absolute Neutrophil Count 7.8 X10^3/uL (2.0-7.7); Basophil# 0.03 X10^3/uL; Basophil% 0.3 % (0-1); Eosinophil# 0.05 X10^3/uL; Eosinophils% 0.5 % (0-5); Hematocrit 41.2 % (40-54); Hemoglobin 13.6 g/dL (13.0-16.5); Lymphocyte # 0.97 X10^3/ul (4.0); Lymphocyte % 10.2 % (19-41); Mean Corpuscular Hgb 30.6 pg (27.0-32.0); Mean Corpuscular Volume 92.6 fL (80-94); Mean Platelet Vol. 10.3 fl (6.2-12.0); Monocyte# 0.64 X10^3/uL; Monocyte% 6.7 % (0-10); NRBC Flagged by Analyzer 0 % (0-5); Neutrophil % 82.1 % (47-70); POSITIVE MORPHOLOGY YES; Platelet Count 183 K/mm3 (150-450); RBC Distribution Width CV 13.7 % (11.6-14.6); Red Blood Count 4.45 M/mm3 (4.6-6.2); White Blood Count 9.5 K/mm3 (4.4-11.0)
[2019-07-08 04:20] LABS: Differential Indicated SCAN CRITERIA MET
[2019-07-08] MEDS: 0.9% Normal Saline 1,000 ML 100 ML IV (04:24)
[2019-07-08 04:38] LABS: AST(SGOT) 19 U/L (15-37); Alanine Aminotransfer ALT/SGPT 30 U/L (16-61); Albumin, Serum 3.1 g/dL (3.2-5.0); Alkaline Phosphatase 48 U/L (45-117); Anion Gap 5 (5-15); BUN 9 mg/dL (7-18); BUN/Creat Ratio 11.6 RATIO (10-20); Calcium,Total 8.4 mg/dL (8.5-10.1); Chloride 107 mmol/L (98-107); Creatinine, Serum 0.78 mg/dL (0.70-1.30); EST Glomerular Filtration Rate 124 mL/min (>60); Est Glom Filt Rate - Afr Amer 151 mL/min (>60); Estimated Creatinine Clearance 146.71 ml/min; Globulin 3.1 g/dL (2.2-4.2); Glucose 94 mg/dL (74-106); Potassium 3.9 mmol/L (3.5-5.1); Protein, Total 6.2 g/dL (6.4-8.2); Sodium Level 141 mmol/L (136-145)
[2019-07-08 05:11] LABS: Differential Comment SCANNED
[2019-07-08] MEDS: fentaNYL drip 100 ML 15 MCG IV ×3 (05:17→19:14)
--- NOTE | 2019-07-08 05:55 | RAD_ITS ---
STUDY: X-RAY CHEST REASON FOR EXAM: Male, 29 years old. Shortness of breath, dyspnea TECHNIQUE: AP COMPARISON: 07/07/2019 FINDINGS: Enteric (extending to the left upper abdomen) and endotracheal tubes are present with endotracheal tube mildly retracted since prior study, terminating 3 cm above the dimas. Bilateral airspace opacities have moderately decreased since the prior study with upper lobe dominant distribution on the current exam. No sizable effusion. Normal size heart. Normal mediastinum and brendon. Normal visualized pulmonary arteries. Normal visualized aortic arch and descending thoracic aorta. No acute bony process. There is no demonstrated abnormality of the visualized soft tissue structures of the upper abdomen. RAD/Chest 1 View (Portable) IMPRESSION: Moderate favorable change. Partial clearing of bilateral airspace disease. Electronically Signed: Tacho Arzola MD (Brooks) at 12:14 EDT , Service support ,
[2019-07-08 06:50] LABS: Base Excess 3 mmol/L (-2 to +2); Bicarbonate 28.4 mmol/L (22-26); Blood Gas Specimen Type ART; FI02 45; Mode A-C; O2 Delivery Device Vent; PEEP 8; PO2 100 mmHG (75-100); RR 14; SITE R Radial; SO2 97 % (95-99); Time Given 642; Total Carbon Dioxide 30 mmol/L; Vt 450; pCO2 52.2 mmHg (35-45); pH 7.34 (7.35-7.45)
--- NOTE | 2019-07-08 06:50 | PCM.RX.CS ---
Consult Pharmacy has been consulted to manage selected antiobiotic: Vancomycin Type of Consult: New start Suspected Infection: Other Prior Doses of Antibiotics Received/Current Regimen: Medications Vancomycin HCl (Vancomycin) 1,000 mg in 200 mls @ 200 mls/hr IV Q8H MICHEAL Discontinued Medications Vancomycin HCl 1,250 mg/ (Sodium Chloride) 275 mls @ 167 mls/hr IV X1 ONE Stop: 07/07/19 17:08 Last Admin: 07/07/19 17:50 Dose: Infused Labs: Sodium 141 mmol/L (136-145) 07/08/19 03:55 Potassium 3.9 mmol/L (3.5-5.1) 07/08/19 03:55 Chloride 107 mmol/L (98-107) 07/08/19 03:55 Carbon Dioxide 29.0 mmol/L (21.0-32.0) 07/08/19 03:55 Anion Gap 5 (5-15) 07/08/19 03:55 BUN 9 mg/dL (7-18) 07/08/19 03:55 Creatinine 0.78 mg/dL (0.70-1.30) 07/08/19 03:55 Est GFR (MDRD) Af Amer 151 mL/min (>60) 07/08/19 03:55 Est GFR (MDRD) Non-Af 124 mL/min (>60) 07/08/19 03:55 BUN/Creatinine Ratio 11.6 RATIO (10-20) 07/08/19 03:55 Glucose 94 mg/dL (74-106) 07/08/19 03:55 Weight used for dosin.9 kg Estimated Creatinine Clearance: 146 Goal Trough: 15-20 mcg/mL Pharmacy Plan for Drug Dosing: Pharmacy Service will continue to monitor and adjust dosing as required. Follow-Up Labs: Trough Vancomycin Labs to be done on [date and time ordered]: 07/09/19 @7400
--- NOTE | 2019-07-08 07:20 | PCM.CON.CC ---
Problem List (1) Unresponsiveness Status: Acute (2) Respiratory failure Status: Acute Qualifiers: Chronicity: acute Respiratory failure complication: hypoxia and hypercapnia Qualified Code(s): J96.01 - Acute respiratory failure with hypoxia; J96.02 - Acute respiratory failure with hypercapnia (3) Polysubstance (including opioids) dependence with physiol dependence Status: Acute (4) Nicotine abuse Status: Acute (5) Lactic acidosis Status: Acute Reason for Consult Date of Consultation: 07/08/19 Reason for Consultation: Respiratory failure History of Present Illness: The patient is a 29 year old M, with with past medical history listed below, who presented to [facility] on 07/07/2019 after being found unresponsive at the [facility]. EMS had reported patient was able to sit up on his own, but did appear cyanotic with increased work of breathing. Patient was given 1 mg of Narcan intranasally and then 0.5 mg of Narcan IV with some improvement. However, patient did remain cyanotic. Reportedly, patient had admitted to snorting heroin earlier in the day. Patient had reportedly not had any recent illness. Patient reportedly have been treated in the ER for a dog bite previously. In the ER, patient was noted to be leukocytotic with a white blood cell count of 20, acidotic with a lactate of 7.1 and and respiratory failure. Patient was reportedly alert and appropriate initially on presentation to the ER, but was noted to have a pulse ox in the 50s. Patient was in severe respiratory distress with rhonchi bilaterally. Patient was initially noted to be tachycardic and was placed on BiPAP therapy with some improvement. However, on transfer to the floor, patient started to have emesis with frothy sputum and paradoxical respiratory movements. Patient was intubated by rapid sequence and admitted to the intensive care unit. Overnight, patient has been very difficult to sedate. Patient's respiratory status has improved somewhat from an oxygenation standpoint. Patient did receive Lasix with improvement. Patient has remained adequate on blood pressure. Patient did develop a fever overnight. Patient is currently intubated and sedated. No family at the bedside. Unable to obtain a review of systems otherwise. Most of the information is from the electronic medical record. Past Medical History Allergies No Known Allergies Allergy (Verified 07/07/19 14:02) Home Medications: Ambulatory Orders Medication Instructions Recorded Amoxicillin/Potassium Clav 1 ea PO BID #20 tab 07/06/19 [Augmentin 875-125 Tablet] Ibuprofen 600 mg PO 4X/DAY PRN #20 tab 07/06/19 Surgical History: no surgical history Psychiatric History: No pertinent psych hx Lives: With Family Smoking Status: Current every day smoker Tobacco Use: Cigarettes Alcohol: Occasional Drugs: Heroin, - - fentanyl - *Family History Paternal History Items: - - addiction, father and grandpa alcoholic, uncle heroin. Maternal History Items: No pertinent history Review of Systems Unable to obtain accurate/complete ROS d/t: Intubated and sedated Patient Problems: Active and Suspected Problems Unresponsiveness (Acute) Respiratory failure (Acute) Polysubstance (including opioids) dependence with physiol dependence (Acute) Nicotine abuse (Acute) Lactic acidosis (Acute) Objective: All imaging was personally reviewed. Chest x-ray does show bilateral infiltrates. Morning x-ray shows some improvement in bilateral infiltrates. There does appear to be a predominance in the right upper lobe. Patient is never had an echocardiogram, pulmonary function test or CT of the chest that we can locate in the medical record - Physical Exam General: - - Intubated and sedated. Fair vent synchrony. Appears stated age. HEENT: PERRLA, EOMI, Normocephalic, - - Some excoriations noted on the nose. Oral: Moist Mucosa, No Gingival or Mucosal Lesions/ Ulcerations Neck: Supple, No JVD, No Nodes, Trachea Midline Lungs: No rhonchi, No wheeze, No rales, Diminished, - - Symmetric expansion. Cardiovascular: Normal S1, Normal S2, No murmurs, No rub noted, No Gallop, Tachycardic Abdomen: Bowel Sounds Present, Soft, Non Tender, Non-Distended Extremities: No clubbing, No cyanosis, No edema Skin: - - Right hand with healing dog bite. Small wound noted. Musculoskeletal: No Tenderness to Palpation of Joints or Extremities Lymphatic: No Cervical, Supraclavicular, or Inguinal Adenopathy Neurological: Neuro grossly intact Psych/Mental Status: Flat Affect, Impulsive Vital Signs Temp Pulse Resp BP Pulse Ox 38.1 C H 109 H 14 108/52 L 99 07/08/19 06:00 07/08/19 06:48 07/08/19 07:07 07/08/19 06:00 07/08/19 07:07 Oxygen Flow Rate (L/min) 15 Oxygen Delivery Method Mechanical Ventilator Weight: 73.9 kg Body Mass Index (BMI) 22.4 Intake and Output for Last 24 Hours 07/06/19 07/07/19 07/08/19 23:59 23:59 23:59 Intake Total 487.88 / 525.63 1483.33 / 1483.33 Output Total 400 / 400 1900 / 1900 Balance 87.88 / 125.63 -416.67 / -416.67 Laboratory Tests Past 24 Hrs 07/07/19 07/07/19 07/07/19 14:10 14:10 14:10 WBC 20.2 H RBC 5.28 Hgb 16.3 Hct 50.7 MCV 96.0 H MCH 30.9 MCHC 32.1 RDW Std Deviation 48.1 H RDW Coeff of Zari 13.5 Plt Count 282 MPV 10.1 Immature Gran % (Auto) 0.500 Neut % (Auto) 87.0 H Lymph % (Auto) 9.3 L Sutton % (Auto) 2.4 Eos % (Auto) 0.5 Baso % (Auto) 0.3 Absolute Neuts (auto) 17.5 H Absolute Lymphs (auto) 1.87 Nucleated RBC % 0 Differential Comment PT 14.5 INR 1.2 APTT 30.3 Specimen Type Sample Site pH Bicarbonate Actual POC Total CO2 Base Excess O2 Saturation O2 % ABG pCO2 ABG pO2 Kofi Test Respiration Rate O2 Delivery Device Minute Volume Vent Mode Tidal Volume POC PEEP EPAP IPAP Blood Gas Notified Whom Blood Gas Notified Time Sodium 139 Potassium 4.0 Chloride 103 Carbon Dioxide 25.0 Anion Gap 11 BUN 13 Creatinine 1.07 Estim Creat Clear Calc 104.23 Est GFR (MDRD) Af Amer 104 Est GFR (MDRD) Non-Af 86 BUN/Creatinine Ratio 12.1 Glucose 267 H Hemoglobin A1c Lactic Acid Calcium 8.6 Total Bilirubin 0.30 AST 21 ALT 39 Alkaline Phosphatase 80 Total Creatine Kinase 279 Troponin I < 0.015 Total Protein 7.9 Albumin 4.2 Globulin 3.7 Albumin/Globulin Ratio 1.1 Triglycerides Urine Color Urine Clarity Urine pH Ur Specific [place] Urine Protein Urine Glucose (UA) Urine Ketones Urine Occult Blood Urine Nitrite Urine Bilirubin Urine Urobilinogen Ur Leukocyte Esterase Urine RBC Urine WBC Ur Squamous Epith Cells Urine Bacteria Hyaline Casts Urine Mucus Urine Opiates Screen Urine Methadone Screen Ur Barbiturates Screen Ur Phencyclidine Scrn Ur Amphetamines Screen U Methamphetamin-MDMA U Benzodiazepines Scrn Urine Cocaine Screen U Cannabinoids Screen Ur Drug Screen Comment Ethyl Alcohol MRSA (PCR) 07/07/19 07/07/19 07/07/19 14:10 14:10 14:17 WBC RBC Hgb Hct MCV MCH MCHC RDW Std Deviation RDW Coeff of Zari Plt Count MPV Immature Gran % (Auto) Neut % (Auto) Lymph % (Auto) Sutton % (Auto) Eos % (Auto) Baso % (Auto) Absolute Neuts (auto) Absolute Lymphs (auto) Nucleated RBC % Differential Comment PT INR APTT Specimen Type Sample Site pH Bicarbonate Actual POC Total CO2 Base Excess O2 Saturation O2 % ABG pCO2 ABG pO2 Kofi Test Respiration Rate O2 Delivery Device Minute Volume Vent Mode Tidal Volume POC PEEP EPAP IPAP Blood Gas Notified Whom Blood Gas Notified Time Sodium Potassium Chloride Carbon Dioxide Anion Gap BUN Creatinine Estim Creat Clear Calc Est GFR (MDRD) Af Amer Est GFR (MDRD) Non-Af BUN/Creatinine Ratio Glucose Hemoglobin A1c 4.9 Lactic Acid 7.2 H* Calcium Total Bilirubin AST ALT Alkaline Phosphatase Total Creatine Kinase Cancelled Troponin I Total Protein Albumin Globulin Albumin/Globulin Ratio Triglycerides 95 Urine Color Urine Clarity Urine pH Ur Specific [place] Urine Protein Urine Glucose (UA) Urine Ketones Urine Occult Blood Urine Nitrite Urine Bilirubin Urine Urobilinogen Ur Leukocyte Esterase Urine RBC Urine WBC Ur Squamous Epith Cells Urine Bacteria Hyaline Casts Urine Mucus Urine Opiates Screen Urine Methadone Screen Ur Barbiturates Screen Ur Phencyclidine Scrn Ur Amphetamines Screen U Methamphetamin-MDMA U Benzodiazepines Scrn Urine Cocaine Screen U Cannabinoids Screen Ur Drug Screen Comment Ethyl Alcohol MRSA (PCR) 07/07/19 07/07/19 07/07/19 14:35 15:55 16:00 WBC RBC Hgb Hct MCV MCH MCHC RDW Std Deviation RDW Coeff of Zari Plt Count MPV Immature Gran % (Auto) Neut % (Auto) Lymph % (Auto) Sutton % (Auto) Eos % (Auto) Baso % (Auto) Absolute Neuts (auto) Absolute Lymphs (auto) Nucleated RBC % Differential Comment PT INR APTT Specimen Type ART ART Sample Site R Radial R Radial pH 7.12 L* 7.26 L Bicarbonate Actual 21.1 L 22.5 POC Total CO2 23 24 Base Excess -8 L -5 L O2 Saturation 96 98 O2 % 100 90 ABG pCO2 65.3 H 50.1 H ABG pO2 112 H 125 H Kofi Test NA POS Respiration Rate 12 O2 Delivery Device Bi / C PAP Bi / C PAP Minute Volume Vent Mode Tidal Volume POC PEEP EPAP 8 8 IPAP 18 18 Blood Gas Notified Whom ED HOSP Blood Gas Notified Time 1433 1552 Sodium Potassium Chloride Carbon Dioxide Anion Gap BUN Creatinine Estim Creat Clear Calc Est GFR (MDRD) Af Amer Est GFR (MDRD) Non-Af BUN/Creatinine Ratio Glucose Hemoglobin A1c Lactic Acid Calcium Total Bilirubin AST ALT Alkaline Phosphatase Total Creatine Kinase Troponin I Total Protein Albumin Globulin Albumin/Globulin Ratio Triglycerides Urine Color Yellow Urine Clarity Clear Urine pH 5.0 Ur Specific [place] 1.025 Urine Protein 30 H Urine Glucose (UA) 1000 H Urine Ketones Negative Urine Occult Blood 25 H Urine Nitrite Negative Urine Bilirubin Negative Urine Urobilinogen Normal Ur Leukocyte Esterase 100 H Urine RBC 0 SEEN Urine WBC 25-50 SEEN Ur Squamous Epith Cells 0 SEEN Urine Bacteria 0 SEEN Hyaline Casts 0-5 SEEN Urine Mucus 0 SEEN Urine Opiates Screen Urine Methadone Screen Ur Barbiturates Screen Ur Phencyclidine Scrn Ur Amphetamines Screen U Methamphetamin-MDMA U Benzodiazepines Scrn Urine Cocaine Screen U Cannabinoids Screen Ur Drug Screen Comment Ethyl Alcohol MRSA (PCR) 07/07/19 07/07/19 07/07/19 18:40 19:00 19:00 WBC RBC Hgb Hct MCV MCH MCHC RDW Std Deviation RDW Coeff of Zari Plt Count MPV Immature Gran % (Auto) Neut % (Auto) Lymph % (Auto) Sutton % (Auto) Eos % (Auto) Baso % (Auto) Absolute Neuts (auto) Absolute Lymphs (auto) Nucleated RBC % Differential Comment PT INR APTT Specimen Type Sample Site pH Bicarbonate Actual POC Total CO2 Base Excess O2 Saturation O2 % ABG pCO2 ABG pO2 Kofi Test Respiration Rate O2 Delivery Device Minute Volume Vent Mode Tidal Volume POC PEEP EPAP IPAP Blood Gas Notified Whom Blood Gas Notified Time Sodium Potassium Chloride Carbon Dioxide Anion Gap BUN Creatinine Estim Creat Clear Calc Est GFR (MDRD) Af Amer Est GFR (MDRD) Non-Af BUN/Creatinine Ratio Glucose Hemoglobin A1c Lactic Acid 1.1 Calcium Total Bilirubin AST ALT Alkaline Phosphatase Total Creatine Kinase Troponin I Total Protein Albumin Globulin Albumin/Globulin Ratio Triglycerides Urine Color Urine Clarity Urine pH Ur Specific [place] Urine Protein Urine Glucose (UA) Urine Ketones Urine Occult Blood Urine Nitrite Urine Bilirubin Urine Urobilinogen Ur Leukocyte Esterase Urine RBC Urine WBC Ur Squamous Epith Cells Urine Bacteria Hyaline Casts Urine Mucus Urine Opiates Screen POSITIVE H Urine Methadone Screen NEGATIVE Ur Barbiturates Screen NEGATIVE Ur Phencyclidine Scrn NEGATIVE Ur Amphetamines Screen NEGATIVE U Methamphetamin-MDMA NEGATIVE U Benzodiazepines Scrn NEGATIVE Urine Cocaine Screen NEGATIVE U Cannabinoids Screen POSITIVE H Ur Drug Screen Comment Ethyl Alcohol < 3.0 MRSA (PCR) 07/07/19 07/07/19 07/08/19 19:26 20:03 03:55 WBC 9.5 RBC 4.45 L Hgb 13.6 Hct 41.2 MCV 92.6 MCH 30.6 MCHC 33.0 RDW Std Deviation 47.0 H RDW Coeff of Zari 13.7 Plt Count 183 MPV 10.3 Immature Gran % (Auto) 0.200 Neut % (Auto) 82.1 H Lymph % (Auto) 10.2 L Sutton % (Auto) 6.7 Eos % (Auto) 0.5 Baso % (Auto) 0.3 Absolute Neuts (auto) 7.8 H Absolute Lymphs (auto) 0.97 Nucleated RBC % 0 Differential Comment SCANNED PT INR APTT Specimen Type ART Sample Site R Radial pH 7.22 L Bicarbonate Actual 24.1 POC Total CO2 26 Base Excess -4 L O2 Saturation 92 L O2 % 85 ABG pCO2 58.8 H ABG pO2 76 Kofi Test POS Respiration Rate 14 O2 Delivery Device Vent Minute Volume Vent Mode A-C Tidal Volume 450 POC PEEP 5 EPAP IPAP Blood Gas Notified Whom HOSP Blood Gas Notified Time Sodium Potassium Chloride Carbon Dioxide Anion Gap BUN Creatinine Estim Creat Clear Calc Est GFR (MDRD) Af Amer Est GFR (MDRD) Non-Af BUN/Creatinine Ratio Glucose Hemoglobin A1c Lactic Acid Calcium Total Bilirubin AST ALT Alkaline Phosphatase Total Creatine Kinase Troponin I Total Protein Albumin Globulin Albumin/Globulin Ratio Triglycerides Urine Color Urine Clarity Urine pH Ur Specific [place] Urine Protein Urine Glucose (UA) Urine Ketones Urine Occult Blood Urine Nitrite Urine Bilirubin Urine Urobilinogen Ur Leukocyte Esterase Urine RBC Urine WBC Ur Squamous Epith Cells Urine Bacteria Hyaline Casts Urine Mucus Urine Opiates Screen Urine Methadone Screen Ur Barbiturates Screen Ur Phencyclidine Scrn Ur Amphetamines Screen U Methamphetamin-MDMA U Benzodiazepines Scrn Urine Cocaine Screen U Cannabinoids Screen Ur Drug Screen Comment Ethyl Alcohol MRSA (PCR) POSITIVE H 07/08/19 07/08/19 03:55 06:43 WBC RBC Hgb Hct MCV MCH MCHC RDW Std Deviation RDW Coeff of Zari Plt Count MPV Immature Gran % (Auto) Neut % (Auto) Lymph % (Auto) Sutton % (Auto) Eos % (Auto) Baso % (Auto) Absolute Neuts (auto) Absolute Lymphs (auto) Nucleated RBC % Differential Comment PT INR APTT Specimen Type ART Sample Site R Radial pH 7.34 L Bicarbonate Actual 28.4 H POC Total CO2 30 Base Excess 3 H O2 Saturation 97 O2 % 45 ABG pCO2 52.2 H ABG pO2 100 Kofi Test NA Respiration Rate 14 O2 Delivery Device Vent Minute Volume 6.00 Vent Mode A-C Tidal Volume 450 POC PEEP 8 EPAP IPAP Blood Gas Notified Whom ICU Blood Gas Notified Time 642 Sodium 141 Potassium 3.9 Chloride 107 Carbon Dioxide 29.0 Anion Gap 5 BUN 9 Creatinine 0.78 Estim Creat Clear Calc 146.71 Est GFR (MDRD) Af Amer 151 Est GFR (MDRD) Non-Af 124 BUN/Creatinine Ratio 11.6 Glucose 94 Hemoglobin A1c Lactic Acid Calcium 8.4 L Total Bilirubin 0.70 AST 19 ALT 30 Alkaline Phosphatase 48 Total Creatine Kinase Troponin I Total Protein 6.2 L Albumin 3.1 L Globulin 3.1 Albumin/Globulin Ratio 1.0 Triglycerides Urine Color Urine Clarity Urine pH Ur Specific [place] Urine Protein Urine Glucose (UA) Urine Ketones Urine Occult Blood Urine Nitrite Urine Bilirubin Urine Urobilinogen Ur Leukocyte Esterase Urine RBC Urine WBC Ur Squamous Epith Cells Urine Bacteria Hyaline Casts Urine Mucus Urine Opiates Screen Urine Methadone Screen Ur Barbiturates Screen Ur Phencyclidine Scrn Ur Amphetamines Screen U Methamphetamin-MDMA U Benzodiazepines Scrn Urine Cocaine Screen U Cannabinoids Screen Ur Drug Screen Comment Ethyl Alcohol MRSA (PCR) Clinical Impression(s) from Imaging Studies Chest X-Ray 07/07/19 14:05 IMPRESSION: Multilobar mixed infiltrates suggesting pulmonary edema or pneumonia. Electronically Signed: Tacho Arzola MD ([place]) at 14:56 EDT , Service support , Brain CT 07/07/19 14:10 IMPRESSION: No acute intracranial hemorrhage or mass effect. Electronically Signed: Tacho Arzola MD ([place]) at 14:59 EDT , Service support , Chest X-Ray 07/07/19 18:00 IMPRESSION: 1. Endotracheal tube less than 1 cm from the dimas, consider partial retraction 2. Presumably normal position of gastric drainage tube, attention to position is advised on the next image. 3. Severe diffuse lung disease, likely noncardiogenic pulmonary edema/acute alveolar injury. Consider inhalational injury versus pneumonia. Electronically Signed: Hyacinth Dumont, at 18:34 EDT Tel , Service support , Assessment/Plan Active and Suspected Problems Unresponsiveness (Acute) Respiratory failure (Acute) Polysubstance (including opioids) dependence with physiol dependence (Acute) Nicotine abuse (Acute) Lactic acidosis (Acute) RECOMMENDATIONS: 1. Wean PEEP 2. Continue permissive hypercapnia strategy 3. Spontaneous awakening and breathing trials per protocol 4. Obtain echocardiogram 5. Monitor for signs and symptoms of withdrawal 6. Obtain further information when family arrives 7. May require transition to Precedex to facilitate extubation IMPRESSIONS: 1. Acute combined respiratory failure secondary to aspiration versus chemical pneumonitis Patient with diffuse bilateral pulmonary infiltrates. Unclear if patient has an element of chemical induced pulmonary edema secondary to heroin abuse. Other differential would include congestive heart failure, aspiration pneumonia and negative pressure pulmonary edema. Patient did receive Lasix overnight with some improvement. Patient does not have a leukocytosis, but has had fever. Patient reportedly was lucid and answering questions, so anoxic brain injury is less likely. Other possible etiology would include diffuse alveolar hemorrhage. Will hold off on CAT scan for now. Continue supportive care. Spontaneous awakening and breathing trials per protocol. 2. Possible aspiration pneumonitis Patient reportedly did have an emesis with BiPAP in place. Patient is MRSA positive on nasal swab. Will treat with vancomycin and Zosyn for now. Cultures are currently pending. Chest x-ray is slightly improved today compared to previous. Patient does have more of a right lower lobe infiltrate compared to initial x-ray, but patient also has a right upper lobe increased infiltrate. Await culture results. 3. Polysubstance abuse/recent dog bite/nicotine abuse Complicates care, management, recovery and prognosis. Will need to watch for signs and symptoms of withdrawal. Patient is on significant fentanyl at this time, so opiate withdrawal is unlikely. Patient is on appropriate GI and DVT prophylaxis. Will place patient on a bowel regimen given high doses of fentanyl. Withdrawal protocol may be necessary once patient is extubated. TIME: 35 minutes of critical care time spent addressing patient's respiratory failure, polysubstance abuse, potential CHF, review of all data and collaboration with care team. (6 AM to 7:30 AM) Code Visit [id number]: [id number] Critical care first hour
--- NOTE | 2019-07-08 07:37 | ECHOD_ITS ---
Reason For Study: Dyspnea/SOB Procedure This was a 2D Doppler, Color Flow transthoracic echocardiogram. Exam performed portable in ICU/CCU. Left Ventricle Normal LV size. Left ventricular systolic function is normal. The estimated ejection fraction is 55 %. Normal diastology for age. No regional wall motion abnormalities noted. Right Ventricle Normal RV size. Normal systolic function. Atria Normal left atrium. Normal right atrium. Mitral Valve Normal mitral valve. Tricuspid Valve Normal tricuspid valve. Aortic Valve Normal aortic valve. Trisinus/trileaflet aortic valve. Pulmonic Valve Normal pulmonic valve. Great Vessels Normal aortic root. The pulmonary artery is normal size. Normal inferior vena cava. Pericardium/Pleural No pericardial effusion. MMode/2D Measurements & Calculations LVIDd: 4.1 cm IVSd: 0.94 cm Ao root diam: 3.2 cm LVIDs: 3.1 cm LVPWd: 1.2 cm LA dimension: 3.2 cm FS: 25.3 % LAV(MOD-bp): 37.6 ml LA A4 area: 12.8 cm2 RA A4 area: 10.2 cm2 LAV(MOD-bp) Indexed: 19.3 ml/m2 LAV(MOD-sp2): 39.5 ml LAV(MOD-sp4): 28.5 ml Time Measurements MV dec time: 0.22 sec Doppler Measurements & Calculations MV E max jesse: 78.4 cm/sec Lat Peak E' Jesse: 17.6 cm/sec Med Peak E' Jesse: 12.0 cm/sec MV A max jesse: 48.1 cm/sec E/E' lat: 4.4 E/E' med: 6.5 MV E/A: 1.6 MV V2 max: 82.8 cm/sec MV P1/2t max jesse: 82.2 cm/sec Ao V2 max: 128.4 cm/sec MV max P.7 mmHg MV P1/2t: 90.2 msec Ao max P.6 mmHg MV V2 mean: 48.9 cm/sec MV dec slope: 266.8 cm/sec2 MV mean P.1 mmHg MVA(P1/2t): 2.4 cm2 MV V2 VTI: 19.2 cm LV V1 max: 105.4 cm/sec PA V2 max: 86.7 cm/sec LV V1 max P.4 mmHg Interpretation Summary Normal LV size. Left ventricular systolic function is normal. The estimated ejection fraction is 55 %. Normal diastology for age. Structurally normal valves. Ordering Physician: Christophe Carter Referring Physician: Kiana Darby Performed By: Carroll Lopez RCS
[2019-07-08] MEDS: Vancomycin IV 1,000 MG/200 ML BAG 200 MG IV ×3 (07:40→22:09)
[2019-07-08] MEDS: Chlorhexidine 15 ML PO ×2 (08:37→21:15)
[2019-07-08] MEDS: Propofol 10MG/Ml 1,000 MG/100 ML Bottle 21.2 MG CONT INF ×4 (09:15→21:14)
[2019-07-08] MEDS: Famotidine 200 MG/20 ML MDV 20 MG in 0.9% Normal Saline (Pres. free 8 ML 300 MG IV (09:16)
[2019-07-08] MEDS: Senna/Docusate Sodium 1 Tablet GT (09:16)
[2019-07-08] MEDS: 0.9% NaCl Peripheral Flush Adult/Peds IV ×2 (09:17→13:33)
--- NOTE | 2019-07-08 09:32 | PN_ITS ---
Patient Problems: Active and Suspected Problems Unresponsiveness (Acute) Respiratory failure (Acute) Polysubstance (including opioids) dependence with physiol dependence (Acute) Nicotine abuse (Acute) Lactic acidosis (Acute) Subjective: Frothy/bloody sputum expectorated and in vent tubing. Sedated, but requiring propofol and high-dose fentanyl. Vitals/I&O's: Vital Signs Temp Pulse Resp BP Pulse Ox 38.1 C H 101 H 15 94/51 L 100 07/08/19 08:00 07/08/19 09:18 07/08/19 09:18 07/08/19 09:00 07/08/19 09:18 Oxygen Flow Rate (L/min) 15 Oxygen Delivery Method Mechanical Ventilator Weight: 73.9 kg Body Mass Index (BMI) 22.4 Intake and Output for Last 24 Hours 07/06/19 07/07/19 07/08/19 23:59 23:59 23:59 Intake Total 487.88 / 525.63 1873.40 / 1873.40 Output Total 400 / 400 1900 / 1900 Balance 87.88 / 125.63 -26.60 / -26.60 General: - - sedated, afebrile on ventilator. HEENT: - - abrasions across nose. no icterus. when opening eyelids, he looks up, so I am unable to evaluate pupils. Oral: Moist Mucosa, No Gingival or Mucosal Lesions/ Ulcerations, - - ETT, OG in place. Neck: No Nodes, Thyroid Normal Size and Texture Lungs: Normal air movement, - - coarse breath sounds bilaterally. Cardiovascular: Regular rate, Regular Rhythm, Normal S1, Normal S2, No murmurs Abdomen: Bowel Sounds Present, Soft, Non Tender, Non-Distended, No Hepato- splenomegaly Extremities: No edema, No Calf Tenderness Skin: No breakdown, - - abrasions on nose. Musculoskeletal: No Tenderness to Palpation of Joints or Extremities, No Muscle Wasting Neurological: - - 3/4 DTR in patellar. no clonus. Laboratory Results 07/07/19 14:10: Sodium 139, Potassium 4.0, Chloride 103, Carbon Dioxide 25.0, Anion Gap 11, BUN 13, Creatinine 1.07, Estim Creat Clear Calc 104.23, Est GFR (MDRD) Af Amer 104, Est GFR (MDRD) Non-Af 86, BUN/Creatinine Ratio 12.1, Glucose 267 H, Calcium 8.6, Total Bilirubin 0.30, AST 21, ALT 39, Alkaline Phosphatase 80, Total Creatine Kinase 279, Troponin I < 0.015, Total Protein 7.9, Albumin 4.2, Globulin 3.7, Albumin/Globulin Ratio 1.1 07/07/19 14:10: WBC 20.2 H, RBC 5.28, Hgb 16.3, Hct 50.7, MCV 96.0 H, MCH 30.9, MCHC 32.1, RDW Std Deviation 48.1 H, RDW Coeff of Zari 13.5, Plt Count 282, MPV 10.1, Immature Gran % (Auto) 0.500, Neut % (Auto) 87.0 H, Lymph % (Auto) 9.3 L, [place] % (Auto) 2.4, Eos % (Auto) 0.5, Baso % (Auto) 0.3, Absolute Neuts (auto) 17.5 H, Absolute Lymphs (auto) 1.87, Nucleated RBC % 0 07/07/19 14:10: PT 14.5, INR 1.2, APTT 30.3 07/07/19 14:10: Lactic Acid 7.2 H* 07/07/19 14:10: Total Creatine Kinase Cancelled, Triglycerides 95 07/07/19 14:17: Hemoglobin A1c 4.9 07/07/19 14:35: Specimen Type ART, Sample Site R Radial, pH 7.12 L*, Bicarbonate Actual 21.1 L, POC Total CO2 23, Base Excess -8 L, O2 Saturation 96, O2 % 100, ABG pCO2 65.3 H, ABG pO2 112 H, Kofi Test NA, Respiration Rate 12, O2 Delivery Device Bi / C PAP, EPAP 8, IPAP 18, Blood Gas Notified Whom ED , Blood Gas Notified Time 1433 07/07/19 15:55: Urine Color Yellow, Urine Clarity Clear, Urine pH 5.0, Ur Specific [place] 1.025, Urine Protein 30 H, Urine Glucose (UA) 1000 H, Urine Ketones Negative, Urine Occult Blood 25 H, Urine Nitrite Negative, Urine Bilirubin Negative, Urine Urobilinogen Normal, Ur Leukocyte Esterase 100 H, Urine RBC 0 SEEN, Urine WBC 25-50 SEEN, Ur Squamous Epith Cells 0 SEEN, Urine Bacteria 0 SEEN, Hyaline Casts 0-5 SEEN, Urine Mucus 0 SEEN 07/07/19 16:00: Specimen Type ART, Sample Site R Radial, pH 7.26 L, Bicarbonate Actual 22.5, POC Total CO2 24, Base Excess -5 L, O2 Saturation 98, O2 % 90, ABG pCO2 50.1 H, ABG pO2 125 H, Kofi Test POS, O2 Delivery Device Bi / C PAP, EPAP 8, IPAP 18, Blood Gas Notified Whom HOSP , Blood Gas Notified Time 1552 07/07/19 18:40: Urine Opiates Screen POSITIVE H, Urine Methadone Screen NEGATIVE, Ur Barbiturates Screen NEGATIVE, Ur Phencyclidine Scrn NEGATIVE, Ur Amphetamines Screen NEGATIVE, U Methamphetamin-MDMA NEGATIVE, U Benzodiazepines Scrn NEGATIVE, Urine Cocaine Screen NEGATIVE, U Cannabinoids Screen POSITIVE H, Ur Drug Screen Comment 07/07/19 19:00: Ethyl Alcohol < 3.0 07/07/19 19:00: Lactic Acid 1.1 07/07/19 19:26: Specimen Type ART, Sample Site R Radial, pH 7.22 L, Bicarbonate Actual 24.1, POC Total CO2 26, Base Excess -4 L, O2 Saturation 92 L, O2 % 85, ABG pCO2 58.8 H, ABG pO2 76, Kofi Test POS, Respiration Rate 14, O2 Delivery Device Vent, Vent Mode A-C, Tidal Volume 450, POC PEEP 5, Blood Gas Notified Whom AZALIA COLEMAN 07/07/19 20:03: MRSA (PCR) POSITIVE H 07/08/19 03:55: WBC 9.5, RBC 4.45 L, Hgb 13.6, Hct 41.2, MCV 92.6, MCH 30.6, MCHC 33.0, RDW Std Deviation 47.0 H, RDW Coeff of Zari 13.7, Plt Count 183, MPV 10.3, Immature Gran % (Auto) 0.200, Neut % (Auto) 82.1 H, Lymph % (Auto) 10.2 L, [place] % (Auto) 6.7, Eos % (Auto) 0.5, Baso % (Auto) 0.3, Absolute Neuts (auto) 7.8 H, Absolute Lymphs (auto) 0.97, Nucleated RBC % 0, Differential Comment SCANNED 07/08/19 03:55: Sodium 141, Potassium 3.9, Chloride 107, Carbon Dioxide 29.0, Anion Gap 5, BUN 9, Creatinine 0.78, Estim Creat Clear Calc 146.71, Est GFR (MDRD) Af Amer 151, Est GFR (MDRD) Non-Af 124, BUN/Creatinine Ratio 11.6, Glucose 94, Calcium 8.4 L, Total Bilirubin 0.70, AST 19, ALT 30, Alkaline Phosphatase 48, Total Protein 6.2 L, Albumin 3.1 L, Globulin 3.1, Albumin/G lobulin Ratio 1.0 07/08/19 06:43: Specimen Type ART, Sample Site R Radial, pH 7.34 L, Bicarbonate Actual 28.4 H, POC Total CO2 30, Base Excess 3 H, O2 Saturation 97, O2 % 45, ABG pCO2 52.2 H, ABG pO2 100, Kofi Test NA, Respiration Rate 14, O2 Delivery Device Vent, Minute Volume 6.00, Vent Mode A-C, Tidal Volume 450, POC PEEP 8, Blood Gas Notified Whom ICU MD, Blood Gas Notified Time 642 Current Medications Acetaminophen (Tylenol Liquid) 650 mg GT Q6H PRN PRN PRN Reason: TEMP>101.5 Albuterol Sulfate (Ventolin Aerosols) 2.5 mg INHALATION Q2H PRN PRN PRN Reason: SOB/Wheezing Albuterol/Ipratropium (Duoneb) 3 ml INHALATION Q6H.RT MICHEAL Last Admin: 07/08/19 06:48 Dose: 3 ml Documented by: Chlorhexidine Gluconate () 15 ml PO BID MICHEAL Last Admin: 07/08/19 08:37 Dose: 15 ml Documented by: Chlorhexidine Gluconate () 1 each TOPICAL DAILY MICHEAL Last Admin: 07/08/19 03:56 Dose: 1 each Documented by: Famotidine 20 mg/ Sodium (Chloride) 10 mls @ 300 mls/hr IV Q24 MIC[facility]AL Last Admin: 07/08/19 09:16 Dose: 300 mls/hr Documented by: Piperacillin Sod/Tazobactam (Sod 3.375 gm/ Sodium Chloride) 50 mls @ 12.5 mls/hr IV Q8 [facility] Last Infusion: 07/08/19 09:31 Dose: Infused Documented by: Fentanyl () 100 mls @ 2.5 mls/hr IV UD [facility]; Protocol Last Titration: 07/08/19 09:00 Dose: 150 mcg/hr, 15 mls/hr Documented by: Propofol (Diprivan) 1,000 mg in 100 mls @ 4.704 mls/hr CONT INF .Q12H MICHEAL; Protocol Last Admin: 07/08/19 09:15 Dose: 45 mcg/kg/min, 21.2 mls/hr Documented by: Sodium Chloride () 250 mls @ 15 mls/hr IV .[id number] PRN PRN Reason: SALINE FLUSH Vancomycin IV Pharmacy to Dose (1 ea/ Sodium Chloride) 500 mls @ 250 mls/hr IV PRN PRN; Protocol PRN Reason: Rx to Dose Vancomycin HCl (Vancomycin) 1,000 mg in 200 mls @ 200 mls/hr IV Q8H [facility] Last Infusion: 07/08/19 08:44 Dose: Infused Documented by: Lorazepam (Ativan) 2 mg IV Q2H PRN PRN PRN Reason: ANXIETY/AGITATION Last Admin: 07/08/19 09:22 Dose: 2 mg Documented by: Magnesium Hydroxide (Milk Of Magnesia) 30 ml GT DAILY PRN PRN PRN Reason: Constipation Ondansetron HCl (Zofran) 4 mg IV Q8H PRN PRN PRN Reason: NAUSEA/VOMITING Senna/Docusate Sodium (Senokot-S, Chantel-Colace) 1 tablet GT DAILY MICHEAL Last Admin: 07/08/19 09:16 Dose: 1 tablet Documented by: Sodium Chloride () 5 - 15 ml IV UD PRN PRN Reason: SALINE FLUSH Last Admin: 07/08/19 09:17 Dose: 10 ml Documented by: STROKE Vital Signs/Narrative: Vital Signs Temp Pulse Resp BP Pulse Ox 07/08/19 09:18 101 H 15 100 07/08/19 09:00 105 H 14 94/51 L 100 07/08/19 08:00 38.1 C H 108 H 14 91/48 L 100 07/08/19 07:21 109 H 07/08/19 07:07 14 99 07/08/19 07:00 108 H 14 89/48 L 100 07/08/19 06:48 109 H 14 07/08/19 06:23 108 H 14 99 07/08/19 06:00 38.1 C H 108 H 14 108/52 L 98 Medical Necessity - Tobacco Use Smoking Status: Current every day smoker Tobacco Use: Cigarettes Assessment/Plan All Active Problems Unresponsiveness (Acute) Respiratory failure (Acute) Polysubstance (including opioids) dependence with physiol dependence (Acute) Nicotine abuse (Acute) Lactic acidosis (Acute) 29-year-old found unresponsive. Was intubated after he had vomited. 1. Toxic encephalopathy * due to opiate (heroin/fentanyl) overdose * did respond to narcan and was A+O x3. * was face-down so, unclear at this time if he will have any ongoing defecits, will need to assess when he is off the ventilator 2. acute hypercapnic respiratory failure * secondary to overdose (ABG c/w respiratory acidosis) and pneumonia +/- DAH or CHF * Did have some response with furosemide. * on vent, wean as tolerated * CCM following 3. MRSA pneumonia * possible other type (pneumococcal, gram negative, aspiration) * on Pip/tazo and vanc * pulmonary toilet 4. polysubstance abuse * complicates care * patient with high narcotic tolerance and on high-dose fentanyl * may require additional sedation beyond what he is currently receiving (Precedex) 5. VTE proph: moderate risk. SCDs given the frothy/blood sputum. Code Visit Inpatient E&M: 01225 Subs Hosp L3
[2019-07-08] MEDS: Vital AF 1.2 Cal Liquid 1,000 ML 70 ML GT (10:17)
[2019-07-08] MEDS: Acetaminophen 650 MG/20 ML UDC GT (22:00)
[2019-07-09] VITALS (46 sets, daily range): BP systolic 88–129; BP diastolic 45–85; PULSE 74–124; RESP 14–21; TEMP 37.8–38.6; O2SAT 91–100
[2019-07-09] MEDS: Ipratropium/Albuterol Sulfate 3 ML AMPUL.NEB INHALATION ×4 (00:33→18:35)
[2019-07-09] MEDS: Propofol 10MG/Ml 1,000 MG/100 ML Bottle 21.2 MG CONT INF (01:32)
[2019-07-09] MEDS: 0.9% NaCl IVPB Med Flush (250 mL) 15 ML IV (01:33)
[2019-07-09] MEDS: fentaNYL drip 100 ML 15 MCG IV (02:00)
[2019-07-09] MEDS: LORazepam 2 MG/ML Syringe IV ×3 (03:04→20:58)
[2019-07-09] MEDS: 0.9% NaCl Peripheral Flush Adult/Peds IV ×4 (03:05→20:58)
[2019-07-09] MEDS: CHLORHEXIDINE GLUC 2% CLOTH 1 EACH TOWELETTE TOPICAL (03:28)
[2019-07-09] MEDS: TITRATION PARAMETER CHANGE 1 EACH IV (05:09)
[2019-07-09] MEDS: Acetaminophen 650 MG/20 ML UDC GT (06:10)
[2019-07-09 06:19] LABS: Absolute Lymphocyte Count 0.69 X10^3/uL (0.83-4.51); Absolute Neutrophil Count 6.7 X10^3/uL (2.0-7.7); Basophil# 0.02 X10^3/uL; Basophil% 0.2 % (0-1); Eosinophil# 0.13 X10^3/uL; Eosinophils% 1.6 % (0-5); Hematocrit 34.4 % (40-54); Hemoglobin 11.5 g/dL (13.0-16.5); Lymphocyte # 0.69 X10^3/ul (4.0); Lymphocyte % 8.5 % (19-41); Mean Corp Hgb Conc 33.4 g/dL (32-36); Mean Corpuscular Hgb 30.7 pg (27.0-32.0); Mean Platelet Vol. 10.5 fl (6.2-12.0); Monocyte# 0.59 X10^3/uL; Monocyte% 7.2 % (0-10); NRBC Flagged by Analyzer 0 % (0-5); Neutrophil % 82.3 % (47-70); Platelet Count 132 K/mm3 (150-450); RBC Distribution Width CV 13.5 % (11.6-14.6); RBC Distribution Width SD 46.1 fl (35.1-43.9); Red Blood Count 3.74 M/mm3 (4.6-6.2); White Blood Count 8.2 K/mm3 (4.4-11.0)
--- NOTE | 2019-07-09 06:37 | PCM.PN.INT ---
Subjective: The patient was seen and examined at the bedside this morning. Events from the last 24 hours have been reviewed. The patient is currently febrile with a T-max overnight of 101.5 ?F. The patient remains hemodynamically stable. FiO2 requirement is currently 30%. The patient failed his spontaneous awakening trial this morning, as he became agitated and restless. Objective: The patient's most recent lab work, culture data and imaging studies have all been personally reviewed. Strep and urine Legionella antigens were negative. Blood, urine and sputum cultures are pending. General: - - Intubated, sedated and mechanically ventilated. HEENT: Atraumatic, PERRLA, Normocephalic, - - Excoriations with surrounding erythema over bridge of nose. Oral: No Gingival or Mucosal Lesions/ Ulcerations, - - Endotracheal and OG tubes currently in place Lungs: - - Clear across anterior lung red. Copious pink-colored frothy secretions from endotracheal tube. Cardiovascular: Normal S1, Normal S2, No murmurs, Tachycardic Abdomen: Bowel Sounds Present, Soft, Non Tender Extremities: No clubbing, No cyanosis, No edema Skin: No breakdown Musculoskeletal: No Muscle Wasting Lymphatic: No Cervical, Supraclavicular, or Inguinal Adenopathy Neurological: - - No focal neurological deficits. Vital Signs Temp Pulse Resp BP Pulse Ox 101.5 F H 113 H 18 126/62 H 94 07/09/19 06:00 07/09/19 06:00 07/09/19 06:00 07/09/19 06:00 07/09/19 06:00 Oxygen Flow Rate (L/min) 15 Oxygen Delivery Method Mechanical Ventilator Weight: 164 lb 3.91 oz Body Mass Index (BMI) 22.4 Intake and Output for Last 24 Hours 07/07/19 07/08/19 07/09/19 23:59 23:59 23:59 Intake Total 487.88 / 525.63 3214.83 / 3766.23 1213.11 / 1213.11 Output Total 400 / 400 2550 / 2875 875 / 875 Balance 87.88 / 125.63 664.83 / 891.23 338.11 / 338.11 Labs (Last 48 Hours) 07/07/19 07/07/19 07/07/19 14:10 14:10 14:10 WBC 20.2 H RBC 5.28 Hgb 16.3 Hct 50.7 MCV 96.0 H MCH 30.9 MCHC 32.1 RDW Std Deviation 48.1 H RDW Coeff of Zari 13.5 Plt Count 282 MPV 10.1 Immature Gran % (Auto) 0.500 Neut % (Auto) 87.0 H Lymph % (Auto) 9.3 L Mckenzie % (Auto) 2.4 Eos % (Auto) 0.5 Baso % (Auto) 0.3 Absolute Neuts (auto) 17.5 H Absolute Lymphs (auto) 1.87 Nucleated RBC % 0 Differential Comment PT 14.5 INR 1.2 APTT 30.3 Specimen Type Sample Site pH Bicarbonate Actual POC Total CO2 Base Excess O2 Saturation O2 % ABG pCO2 ABG pO2 Kofi Test Respiration Rate O2 Delivery Device Minute Volume Vent Mode Tidal Volume POC PEEP EPAP IPAP Blood Gas Notified Whom Blood Gas Notified Time Sodium 139 Potassium 4.0 Chloride 103 Carbon Dioxide 25.0 Anion Gap 11 BUN 13 Creatinine 1.07 Estim Creat Clear Calc 104.23 Est GFR (MDRD) Af Amer 104 Est GFR (MDRD) Non-Af 86 BUN/Creatinine Ratio 12.1 Glucose 267 H Hemoglobin A1c Lactic Acid Calcium 8.6 Total Bilirubin 0.30 AST 21 ALT 39 Alkaline Phosphatase 80 Total Creatine Kinase 279 Troponin I < 0.015 Total Protein 7.9 Albumin 4.2 Globulin 3.7 Albumin/Globulin Ratio 1.1 Triglycerides Urine Color Urine Clarity Urine pH Ur Specific [place] Urine Protein Urine Glucose (UA) Urine Ketones Urine Occult Blood Urine Nitrite Urine Bilirubin Urine Urobilinogen Ur Leukocyte Esterase Urine RBC Urine WBC Ur Squamous Epith Cells Urine Bacteria Hyaline Casts Urine Mucus Vancomycin Trough Urine Opiates Screen Urine Methadone Screen Ur Barbiturates Screen Ur Phencyclidine Scrn Ur Amphetamines Screen U Methamphetamin-MDMA U Benzodiazepines Scrn Urine Cocaine Screen U Cannabinoids Screen Ur Drug Screen Comment Ethyl Alcohol MRSA (PCR) 07/07/19 07/07/19 07/07/19 14:10 14:10 14:17 WBC RBC Hgb Hct MCV MCH MCHC RDW Std Deviation RDW Coeff of Zari Plt Count MPV Immature Gran % (Auto) Neut % (Auto) Lymph % (Auto) Mckenzie % (Auto) Eos % (Auto) Baso % (Auto) Absolute Neuts (auto) Absolute Lymphs (auto) Nucleated RBC % Differential Comment PT INR APTT Specimen Type Sample Site pH Bicarbonate Actual POC Total CO2 Base Excess O2 Saturation O2 % ABG pCO2 ABG pO2 Kofi Test Respiration Rate O2 Delivery Device Minute Volume Vent Mode Tidal Volume POC PEEP EPAP IPAP Blood Gas Notified Whom Blood Gas Notified Time Sodium Potassium Chloride Carbon Dioxide Anion Gap BUN Creatinine Estim Creat Clear Calc Est GFR (MDRD) Af Amer Est GFR (MDRD) Non-Af BUN/Creatinine Ratio Glucose Hemoglobin A1c 4.9 Lactic Acid 7.2 H* Calcium Total Bilirubin AST ALT Alkaline Phosphatase Total Creatine Kinase Cancelled Troponin I Total Protein Albumin Globulin Albumin/Globulin Ratio Triglycerides 95 Urine Color Urine Clarity Urine pH Ur Specific [place] Urine Protein Urine Glucose (UA) Urine Ketones Urine Occult Blood Urine Nitrite Urine Bilirubin Urine Urobilinogen Ur Leukocyte Esterase Urine RBC Urine WBC Ur Squamous Epith Cells Urine Bacteria Hyaline Casts Urine Mucus Vancomycin Trough Urine Opiates Screen Urine Methadone Screen Ur Barbiturates Screen Ur Phencyclidine Scrn Ur Amphetamines Screen U Methamphetamin-MDMA U Benzodiazepines Scrn Urine Cocaine Screen U Cannabinoids Screen Ur Drug Screen Comment Ethyl Alcohol MRSA (PCR) 07/07/19 07/07/19 07/07/19 14:35 15:55 16:00 WBC RBC Hgb Hct MCV MCH MCHC RDW Std Deviation RDW Coeff of Zari Plt Count MPV Immature Gran % (Auto) Neut % (Auto) Lymph % (Auto) Mckenzie % (Auto) Eos % (Auto) Baso % (Auto) Absolute Neuts (auto) Absolute Lymphs (auto) Nucleated RBC % Differential Comment PT INR APTT Specimen Type ART ART Sample Site R Radial R Radial pH 7.12 L* 7.26 L Bicarbonate Actual 21.1 L 22.5 POC Total CO2 23 24 Base Excess -8 L -5 L O2 Saturation 96 98 O2 % 100 90 ABG pCO2 65.3 H 50.1 H ABG pO2 112 H 125 H Kofi Test NA POS Respiration Rate 12 O2 Delivery Device Bi / C PAP Bi / C PAP Minute Volume Vent Mode Tidal Volume POC PEEP EPAP 8 8 IPAP 18 18 Blood Gas Notified Whom ED HOSP Blood Gas Notified Time 1433 1552 Sodium Potassium Chloride Carbon Dioxide Anion Gap BUN Creatinine Estim Creat Clear Calc Est GFR (MDRD) Af Amer Est GFR (MDRD) Non-Af BUN/Creatinine Ratio Glucose Hemoglobin A1c Lactic Acid Calcium Total Bilirubin AST ALT Alkaline Phosphatase Total Creatine Kinase Troponin I Total Protein Albumin Globulin Albumin/Globulin Ratio Triglycerides Urine Color Yellow Urine Clarity Clear Urine pH 5.0 Ur Specific [place] 1.025 Urine Protein 30 H Urine Glucose (UA) 1000 H Urine Ketones Negative Urine Occult Blood 25 H Urine Nitrite Negative Urine Bilirubin Negative Urine Urobilinogen Normal Ur Leukocyte Esterase 100 H Urine RBC 0 SEEN Urine WBC 25-50 SEEN Ur Squamous Epith Cells 0 SEEN Urine Bacteria 0 SEEN Hyaline Casts 0-5 SEEN Urine Mucus 0 SEEN Vancomycin Trough Urine Opiates Screen Urine Methadone Screen Ur Barbiturates Screen Ur Phencyclidine Scrn Ur Amphetamines Screen U Methamphetamin-MDMA U Benzodiazepines Scrn Urine Cocaine Screen U Cannabinoids Screen Ur Drug Screen Comment Ethyl Alcohol MRSA (PCR) 07/07/19 07/07/19 07/07/19 18:40 19:00 19:00 WBC RBC Hgb Hct MCV MCH MCHC RDW Std Deviation RDW Coeff of Zari Plt Count MPV Immature Gran % (Auto) Neut % (Auto) Lymph % (Auto) Mckenzie % (Auto) Eos % (Auto) Baso % (Auto) Absolute Neuts (auto) Absolute Lymphs (auto) Nucleated RBC % Differential Comment PT INR APTT Specimen Type Sample Site pH Bicarbonate Actual POC Total CO2 Base Excess O2 Saturation O2 % ABG pCO2 ABG pO2 Kofi Test Respiration Rate O2 Delivery Device Minute Volume Vent Mode Tidal Volume POC PEEP EPAP IPAP Blood Gas Notified Whom Blood Gas Notified Time Sodium Potassium Chloride Carbon Dioxide Anion Gap BUN Creatinine Estim Creat Clear Calc Est GFR (MDRD) Af Amer Est GFR (MDRD) Non-Af BUN/Creatinine Ratio Glucose Hemoglobin A1c Lactic Acid 1.1 Calcium Total Bilirubin AST ALT Alkaline Phosphatase Total Creatine Kinase Troponin I Total Protein Albumin Globulin Albumin/Globulin Ratio Triglycerides Urine Color Urine Clarity Urine pH Ur Specific [place] Urine Protein Urine Glucose (UA) Urine Ketones Urine Occult Blood Urine Nitrite Urine Bilirubin Urine Urobilinogen Ur Leukocyte Esterase Urine RBC Urine WBC Ur Squamous Epith Cells Urine Bacteria Hyaline Casts Urine Mucus Vancomycin Trough Urine Opiates Screen POSITIVE H Urine Methadone Screen NEGATIVE Ur Barbiturates Screen NEGATIVE Ur Phencyclidine Scrn NEGATIVE Ur Amphetamines Screen NEGATIVE U Methamphetamin-MDMA NEGATIVE U Benzodiazepines Scrn NEGATIVE Urine Cocaine Screen NEGATIVE U Cannabinoids Screen POSITIVE H Ur Drug Screen Comment Ethyl Alcohol < 3.0 MRSA (PCR) 07/07/19 07/07/19 07/08/19 19:26 20:03 03:55 WBC 9.5 RBC 4.45 L Hgb 13.6 Hct 41.2 MCV 92.6 MCH 30.6 MCHC 33.0 RDW Std Deviation 47.0 H RDW Coeff of Zari 13.7 Plt Count 183 MPV 10.3 Immature Gran % (Auto) 0.200 Neut % (Auto) 82.1 H Lymph % (Auto) 10.2 L Mckenzie % (Auto) 6.7 Eos % (Auto) 0.5 Baso % (Auto) 0.3 Absolute Neuts (auto) 7.8 H Absolute Lymphs (auto) 0.97 Nucleated RBC % 0 Differential Comment SCANNED PT INR APTT Specimen Type ART Sample Site R Radial pH 7.22 L Bicarbonate Actual 24.1 POC Total CO2 26 Base Excess -4 L O2 Saturation 92 L O2 % 85 ABG pCO2 58.8 H ABG pO2 76 Kofi Test POS Respiration Rate 14 O2 Delivery Device Vent Minute Volume Vent Mode A-C Tidal Volume 450 POC PEEP 5 EPAP IPAP Blood Gas Notified Whom HOSP Blood Gas Notified Time Sodium Potassium Chloride Carbon Dioxide Anion Gap BUN Creatinine Estim Creat Clear Calc Est GFR (MDRD) Af Amer Est GFR (MDRD) Non-Af BUN/Creatinine Ratio Glucose Hemoglobin A1c Lactic Acid Calcium Total Bilirubin AST ALT Alkaline Phosphatase Total Creatine Kinase Troponin I Total Protein Albumin Globulin Albumin/Globulin Ratio Triglycerides Urine Color Urine Clarity Urine pH Ur Specific [place] Urine Protein Urine Glucose (UA) Urine Ketones Urine Occult Blood Urine Nitrite Urine Bilirubin Urine Urobilinogen Ur Leukocyte Esterase Urine RBC Urine WBC Ur Squamous Epith Cells Urine Bacteria Hyaline Casts Urine Mucus Vancomycin Trough Urine Opiates Screen Urine Methadone Screen Ur Barbiturates Screen Ur Phencyclidine Scrn Ur Amphetamines Screen U Methamphetamin-MDMA U Benzodiazepines Scrn Urine Cocaine Screen U Cannabinoids Screen Ur Drug Screen Comment Ethyl Alcohol MRSA (PCR) POSITIVE H 07/08/19 07/08/19 07/09/19 03:55 06:43 06:10 WBC RBC Hgb Hct MCV MCH MCHC RDW Std Deviation RDW Coeff of Zari Plt Count MPV Immature Gran % (Auto) Neut % (Auto) Lymph % (Auto) Mckenzie % (Auto) Eos % (Auto) Baso % (Auto) Absolute Neuts (auto) Absolute Lymphs (auto) Nucleated RBC % Differential Comment PT INR APTT Specimen Type ART Sample Site R Radial pH 7.34 L Bicarbonate Actual 28.4 H POC Total CO2 30 Base Excess 3 H O2 Saturation 97 O2 % 45 ABG pCO2 52.2 H ABG pO2 100 Kofi Test NA Respiration Rate 14 O2 Delivery Device Vent Minute Volume 6.00 Vent Mode A-C Tidal Volume 450 POC PEEP 8 EPAP IPAP Blood Gas Notified Whom ICU MD Blood Gas Notified Time 642 Sodium 141 Potassium 3.9 Chloride 107 Carbon Dioxide 29.0 Anion Gap 5 BUN 9 Creatinine 0.78 Estim Creat Clear Calc 146.71 Est GFR (MDRD) Af Amer 151 Est GFR (MDRD) Non-Af 124 BUN/Creatinine Ratio 11.6 Glucose 94 Hemoglobin A1c Lactic Acid Calcium 8.4 L Total Bilirubin 0.70 AST 19 ALT 30 Alkaline Phosphatase 48 Total Creatine Kinase Troponin I Total Protein 6.2 L Albumin 3.1 L Globulin 3.1 Albumin/Globulin Ratio 1.0 Triglycerides Urine Color Urine Clarity Urine pH Ur Specific [place] Urine Protein Urine Glucose (UA) Urine Ketones Urine Occult Blood Urine Nitrite Urine Bilirubin Urine Urobilinogen Ur Leukocyte Esterase Urine RBC Urine WBC Ur Squamous Epith Cells Urine Bacteria Hyaline Casts Urine Mucus Vancomycin Trough Pending Urine Opiates Screen Urine Methadone Screen Ur Barbiturates Screen Ur Phencyclidine Scrn Ur Amphetamines Screen U Methamphetamin-MDMA U Benzodiazepines Scrn Urine Cocaine Screen U Cannabinoids Screen Ur Drug Screen Comment Ethyl Alcohol MRSA (PCR) 07/09/19 07/09/19 06:10 06:10 WBC 8.2 RBC 3.74 L Hgb 11.5 L Hct 34.4 L MCV 92.0 MCH 30.7 MCHC 33.4 RDW Std Deviation 46.1 H RDW Coeff of Zari 13.5 Plt Count 132 L MPV 10.5 Immature Gran % (Auto) 0.200 Neut % (Auto) 82.3 H Lymph % (Auto) 8.5 L Mckenzie % (Auto) 7.2 Eos % (Auto) 1.6 Baso % (Auto) 0.2 Absolute Neuts (auto) 6.7 Absolute Lymphs (auto) 0.69 L Nucleated RBC % 0 Differential Comment PT INR APTT Specimen Type Sample Site pH Bicarbonate Actual POC Total CO2 Base Excess O2 Saturation O2 % ABG pCO2 ABG pO2 Kofi Test Respiration Rate O2 Delivery Device Minute Volume Vent Mode Tidal Volume POC PEEP EPAP IPAP Blood Gas Notified Whom Blood Gas Notified Time Sodium Pending Potassium Pending Chloride Pending Carbon Dioxide Pending Anion Gap Pending BUN Pending Creatinine Pending Estim Creat Clear Calc Est GFR (MDRD) Af Amer Pending Est GFR (MDRD) Non-Af Pending BUN/Creatinine Ratio Pending Glucose Pending Hemoglobin A1c Lactic Acid Calcium Pending Total Bilirubin Pending AST Pending ALT Pending Alkaline Phosphatase Pending Total Creatine Kinase Troponin I Total Protein Pending Albumin Pending Globulin Albumin/Globulin Ratio Triglycerides Urine Color Urine Clarity Urine pH Ur Specific [place] Urine Protein Urine Glucose (UA) Urine Ketones Urine Occult Blood Urine Nitrite Urine Bilirubin Urine Urobilinogen Ur Leukocyte Esterase Urine RBC Urine WBC Ur Squamous Epith Cells Urine Bacteria Hyaline Casts Urine Mucus Vancomycin Trough Urine Opiates Screen Urine Methadone Screen Ur Barbiturates Screen Ur Phencyclidine Scrn Ur Amphetamines Screen U Methamphetamin-MDMA U Benzodiazepines Scrn Urine Cocaine Screen U Cannabinoids Screen Ur Drug Screen Comment Ethyl Alcohol MRSA (PCR) Microbiology 07/07/19 15:55 Urine, Clean Catch Urine Culture - Preliminary Culture exhibits no growth. 07/08/19 00:45 Sputum, Induced/Lukens Gram Stain - Final 07/08/19 10:20 Urine Catheter - [facility] Streptococcus pneumoniae Antigen (M - Final 07/08/19 10:20 Urine Catheter - [facility] Legionella Antigen - Final Clinical Impression(s) from Imaging Studies Chest X-Ray 07/07/19 14:05 IMPRESSION: Multilobar mixed infiltrates suggesting pulmonary edema or pneumonia. Electronically Signed: Tacho Arzola MD ([facility]) at 14:56 EDT , Service support , Brain CT 07/07/19 14:10 IMPRESSION: No acute intracranial hemorrhage or mass effect. Electronically Signed: Tacho Arzola MD ([facility]) at 14:59 EDT , Service support , Chest X-Ray 07/07/19 18:00 IMPRESSION: 1. Endotracheal tube less than 1 cm from the dimas, consider partial retraction 2. Presumably normal position of gastric drainage tube, attention to position is advised on the next image. 3. Severe diffuse lung disease, likely noncardiogenic pulmonary edema/acute alveolar injury. Consider inhalational injury versus pneumonia. Electronically Signed: Hyacinth Dumont, at 18:34 EDT Tel , Service support , Chest X-Ray 07/08/19 05:55 IMPRESSION: Moderate favorable change. Partial clearing of bilateral airspace disease. Electronically Signed: Tacho Arzola MD ([facility]) at 12:14 EDT , Service support , Medical Necessity - Tobacco Use Smoking Status: Current every day smoker Tobacco Use: Cigarettes Assessment/Plan All Active Problems Unresponsiveness (Acute) Respiratory failure (Acute) Polysubstance (including opioids) dependence with physiol dependence (Acute) Nicotine abuse (Acute) Lactic acidosis (Acute) RECOMMENDATIONS: 1. Continue broad-spectrum antimicrobial coverage, pending finalized infectious work-up. 2. Await echocardiogram today. 3. Continue tube feeds as ordered. 4. Start Precedex with plans to wean off propofol. Fentanyl can be continued. 5. Electrolyte repletion as indicated. 6. Continue appropriate ICU prophylaxis 7. Plan for repeat spontaneous awakening and breathing trial tomorrow. IMPRESSIONS: 1. Acute combined respiratory failure in the setting of acute heroin overdose Potential etiologies include aspiration versus chemical pneumonitis, along with negative pressure pulmonary edema. The patient did reportedly have an episode of emesis with a BiPAP in place. Plan to continue current supportive measures with broad-spectrum antimicrobial coverage and invasive mechanical ventilatory support. Surface echocardiogram is currently pending. The patient may require additional diuresis. However, FiO2 requirement is minimal. Agitation is likely going to be a barrier to successful extubation. Therefore, the patient will be started on Precedex today with goals to eventually wean off propofol completely. Fentanyl will be continued in the interim. Plan for repeat spontaneous awakening and breathing trial tomorrow morning. Okay to continue tube feeds. 2. Hypokalemia Electrolyte repletion as indicated. Recheck levels in the morning. 3. Personal history of polysubstance abuse/recent dog bite/nicotine abuse Complicates care, management, recovery and prognosis. Continue current supportive measures as noted above. Case management/social work to assist with disposition issues upon successful extubation. TIME: 38 minutes of critical care time, independent of procedures, was spent addressing the patient's acute combined respiratory failure, acute heroin overdose, hypokalemia, review of all data and collaboration with the care team. ([id number]) Code Visit 9xxxx: [id number] Critical care first hour
[2019-07-09 06:38] LABS: ALB/GLOB Ratio 0.9 RATIO (0.9-2.4); AST(SGOT) 15 U/L (15-37); Alanine Aminotransfer ALT/SGPT 21 U/L (16-61); Albumin, Serum 2.8 g/dL (3.2-5.0); Alkaline Phosphatase 49 U/L (45-117); Anion Gap 4 (5-15); BUN 7 mg/dL (7-18); BUN/Creat Ratio 13.3 RATIO (10-20); Calcium,Total 8.5 mg/dL (8.5-10.1); Chloride 103 mmol/L (98-107); Creatinine, Serum 0.52 mg/dL (0.70-1.30); EST Glomerular Filtration Rate 196 mL/min (>60); Est Glom Filt Rate - Afr Amer 237 mL/min (>60); Estimated Creatinine Clearance 218.88 ml/min; Globulin 3.1 g/dL (2.2-4.2); Glucose 127 mg/dL (74-106); Potassium 3.2 mmol/L (3.5-5.1); Protein, Total 5.9 g/dL (6.4-8.2); Sodium Level 140 mmol/L (136-145)
--- NOTE | 2019-07-09 06:46 | CPS ---
no SBT done, failed readiness d/t agitation & unable to follow directions.
[2019-07-09 06:49] LABS: Vancomycin, Trough Level 5.7 ug/mL (5.0-15.0)
[2019-07-09] MEDS: Propofol 10MG/Ml 1,000 MG/100 ML Bottle 20.1 MG CONT INF (06:56)
[2019-07-09] MEDS: Vancomycin IV 1,000 MG/200 ML BAG 200 MG IV (07:11)
--- NOTE | 2019-07-09 07:24 | PN_ITS ---
Patient Problems: Active and Suspected Problems Unresponsiveness (Acute) Respiratory failure (Acute) Polysubstance (including opioids) dependence with physiol dependence (Acute) Nicotine abuse (Acute) Lactic acidosis (Acute) Subjective: Vancomycin #2 Zosyn #3 The patient is a 29-year-old male with a past medical history of polysubstance abuse and nicotine dependence who was admitted to [facility] on 07/07/2019 with a diagnosis of cardiac overdose from snorting Heroin and Fentanyl. He had been seen in the ED in the preceding 2 days with multiple dog bites on the RUE and was prescribed Augmentin. Vital signs at presentation to the emergency room were temperature 95.8, heart rate 129, blood pressure 143/94, respiratory rate 30 and the pulse ox on room air was 59%. White blood cell count was elevated at 20.2 with a left shift. Hemoglobin was 16.2 and platelets were within normal limits. And ABG showed a pH of 7.12, PCO2 of 65 and a PO2 of 112 on BiPAP at 18/8 with 100% FiO2. Lactic acid was elevated at 7.2. LFTs were unremarkable. Troponin was less than 0.015. UA had 25-50 WBCs per high-power field. Drug screen was positive for opiates and cannabinoids. MRSA nasal screen was positive. Chest x-ray showed multilobar diffuse infiltrates. Admit orders were placed and while the patient was being transferred from the emergency department he began to vomit blood and likely aspirated. He was taken back to the emergency department and intubated and subsequently transferred to ICU. He was admitted to the intensive care unit with a diagnosis of severe sepsis secondary to multilobar pneumonia with acute respiratory failure with hypoxia and apnea. He was continued on Zosyn that was started in the emergency department. Vancomycin was added when the MRSA nasal swab came back +. All events of the past 24 hours of been reviewed. Continues to be febrile. Current temp is 101.5 ?F core. Remains tachycardic and heart rate from midnight on ranged from 101-114. Blood pressures are stable and he is not on pressors. Current respiratory rate is 14 and he is 98% saturated on a 25% FiO2. Fluid balance since admission is +1110. All lab and imaging was personally reviewed. White blood cell count today is 8.2. Hemoglobin is decreased at 11.5 following hydration and platelets are 132 ,000 today. Potassium is low at 3.2 and the serum bicarb is increased at 33. BUN is 7 creatinine is 0.52. Vancomycin trough is low at 5.7. Urine culture has no growth. Blood cultures are still pending but are negative to date. Urine streptococcal and Legionella antigens are negative. Sputum Gram stain had 3+ white blood cells and 4+ red blood cells. Sputum culture is pending. Pt is sedated and on the ventilator. He will occasionally open his eyes. His mother tells me that he did not start using narcotics until after high school. He completed high school and got his degree. 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 He has an underlying anxiety disorder that has never been addressed. He does not use alcohol and he does not vape. He does not smoke cigarettes. He has never used intravenous drugs. He lives with his mother and his grandmother who has dementia. He helps to care for his grandmother. 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 His anxiety i ncreased significantly following the dog bites recently and this may have led to the overdose. He has been seen at [facility] in the past. He is also seen Dr. Dr. Stafford in the past for Vivitrol injections for a short time. He told his mother he quit going to see Dr. Stafford because Dr. Stafford did not believe him when he said he was not using. His last overdose was in 2017 and he did not require intubation at that time.....he was on BIPAP. - Physical Exam General: - - Sedated and on mechanical ventilation. HEENT: PERRLA, Normocephalic, - - He has multiple abrasions on his face especially over the nose and the medial portion of each cheek. None appear to be infected. Oral: Dry Mucosa Neck: Negative Carotid Bruits, No Nodes, Trachea Midline Lungs: Clear to auscultation Cardiovascular: Regular Rhythm, Normal S1, Normal S2, No murmurs, No rub noted, No Gallop, Tachycardic, - - Telemetry shows sinus tachycardia with no significant ectopy. Abdomen: Bowel Sounds Present, Soft, Non Tender - Guarding with palpation., Non- Distended Extremities: No clubbing, No cyanosis, No edema, Capillary Refill Less than 3 Seconds, Peripheral Pulses Normal, - - There are puncture wounds and scratches on his right upper extremity secondary to recent dog bites. Skin: No rashes, No breakdown Neurological: Cranial nerves II-XII grossly intact, - - Moving all extremities Vital Signs Temp Pulse Resp BP Pulse Ox 101.5 F H 114 H 14 126/62 H 98 07/09/19 06:00 07/09/19 06:35 07/09/19 06:35 07/09/19 06:00 07/09/19 06:35 Oxygen Flow Rate (L/min) 15 Oxygen Delivery Method Mechanical Ventilator Weight: 164 lb 3.91 oz Body Mass Index (BMI) 22.4 Intake and Output for Last 24 Hours 07/07/19 07/08/19 07/09/19 23:59 23:59 23:59 Intake Total 487.88 / 525.63 3214.83 / 3766.23 1231.87 / 1231.87 Output Total 400 / 400 2550 / 2875 875 / 875 Balance 87.88 / 125.63 664.83 / 891.23 356.87 / 356.87 Microbiology Past 72 Hours 07/07/19 15:55 Urine Culture - Preliminary Urine, Clean Catch Culture exhibits no growth. 07/08/19 00:45 Gram Stain - Final Sputum, Induced/Lukens 07/08/19 10:20 Streptococcus pneumoniae Antigen (M - Final Urine Catheter - Mcclure 07/08/19 10:20 Legionella Antigen - Final Urine Catheter - Mcclure Laboratory Tests Past 24 Hrs 07/09/19 07/09/19 07/09/19 06:10 06:10 06:10 WBC 8.2 RBC 3.74 L Hgb 11.5 L Hct 34.4 L MCV 92.0 MCH 30.7 MCHC 33.4 RDW Std Deviation 46.1 H RDW Coeff of Zari 13.5 Plt Count 132 L MPV 10.5 Immature Gran % (Auto) 0.200 Neut % (Auto) 82.3 H Lymph % (Auto) 8.5 L [place] % (Auto) 7.2 Eos % (Auto) 1.6 Baso % (Auto) 0.2 Absolute Neuts (auto) 6.7 Absolute Lymphs (auto) 0.69 L Nucleated RBC % 0 Sodium 140 Potassium 3.2 L Chloride 103 Carbon Dioxide 33.0 H Anion Gap 4 L BUN 7 Creatinine 0.52 L Estim Creat Clear Calc 218.88 Est GFR (MDRD) Af Amer 237 Est GFR (MDRD) Non-Af 196 BUN/Creatinine Ratio 13.3 Glucose 127 H Calcium 8.5 Total Bilirubin 0.60 AST 15 ALT 21 Alkaline Phosphatase 49 Total Protein 5.9 L Albumin 2.8 L Globulin 3.1 Albumin/Globulin Ratio 0.9 Vancomycin Trough 5.7 Medical Necessity - Tobacco Use Smoking Status: Current every day smoker Tobacco Use: Cigarettes Assessment/Plan All Active Problems Unresponsiveness (Acute) Respiratory failure (Acute) Polysubstance (including opioids) dependence with physiol dependence (Acute) Nicotine abuse (Acute) Lactic acidosis (Acute) Impressions 1. Acute combined respiratory failure secondary due to PNA vs pneumonitis due to aspiration due to acute opiate overdose. Continue broad spectrum antibiotics. Transition to Precedex to facilitate extubation....possibly in the AM 2. Hypokalemia - supplement ordered and will check a BMP in the AM 3. Toxic encephalopathy due to opiate OD 4. Polysubstance abuse 5. chronic anxiety - I feel it is important to address this piece if he is going to be able to get clean and stay clean 6. recent dog bit RUE.....wounds are scabbed over and do not appear to be infected check mag and phos Supplement the potassium Transition to Precedex in hopes of extubating in the AM Check a BNP ECHO today HIV and hepatitis panel urine culture is negative but he had pyuria. Check the urine for Gonococcus and Chlamydia Recheck a BMP in the AM Will need to address his mental health issues with anxiety if he stands a chance of getting off opiates.
--- NOTE | 2019-07-09 07:38 | PCM.RX.CS ---
Consult Pharmacy has been consulted to manage selected antiobiotic: Vancomycin Type of Consult: Follow-up Suspected Infection: Pneumonia Prior Doses of Antibiotics Received/Current Regimen: Currently on 1gm iv q8h Labs: Sodium 140 mmol/L (136-145) 07/09/19 06:10 Potassium 3.2 mmol/L (3.5-5.1) L 07/09/19 06:10 Chloride 103 mmol/L (98-107) 07/09/19 06:10 Carbon Dioxide 33.0 mmol/L (21.0-32.0) H 07/09/19 06:10 Anion Gap 4 (5-15) L 07/09/19 06:10 BUN 7 mg/dL (7-18) 07/09/19 06:10 Creatinine 0.52 mg/dL (0.70-1.30) L 07/09/19 06:10 Est GFR (MDRD) Af Amer 237 mL/min (>60) 07/09/19 06:10 Est GFR (MDRD) Non-Af 196 mL/min (>60) 07/09/19 06:10 BUN/Creatinine Ratio 13.3 RATIO (-20) 07/09/19 06:10 Glucose 127 mg/dL (74-106) H 07/09/19 06:10 Vancomycin Trough 5.7 ug/mL (5.0-15.0) 07/09/19 06:10 Microbiology: Microbiology 07/07/19 15:55 Urine, Clean Catch Urine Culture - Preliminary Culture exhibits no growth. 07/08/19 00:45 Sputum, Induced/Lukens Gram Stain - Final 07/08/19 10:20 Urine Catheter - Mcclure Streptococcus pneumoniae Antigen (M - Final 07/08/19 10:20 Urine Catheter - Mcclure Legionella Antigen - Final Weight used for dosin.5 kg Estimated Creatinine Clearance: >200ml/min Goal Trough: 15-20 mcg/mL Pharmacy Plan for Drug Dosing: Trough level reported today was 5.7 (goal 15-20mcg/ml). Will increase dose to 2gm iv q8h beginning today at 1500 and get repeat trough level before 4th dose of this new regimen. Pharmacy Service will continue to monitor and adjust dosing as required. Follow-Up Labs: Trough Vancomycin - 07.10. @1430 before 1500 dose
[2019-07-09 08:02] LABS: Alkaline Phosphatase 49 U/L (45-117); Magnesium 1.8 mg/dL (1.6-2.6)
[2019-07-09] MEDS: fentaNYL drip 100 ML 17.5 MCG IV ×2 (09:15→15:00)
[2019-07-09] MEDS: Famotidine 200 MG/20 ML MDV 20 MG in 0.9% Normal Saline (Pres. free 8 ML 300 MG IV (09:16)
[2019-07-09] MEDS: Chlorhexidine 15 ML PO ×2 (09:16→19:38)
[2019-07-09] MEDS: Potassium Chloride 10mEq/100mL 10 MEQ/100 ML IV.SOLN. 100 MEQ IV BOLUS ×4 (09:24→12:47)
[2019-07-09] MEDS: Senna/Docusate Sodium 1 Tablet GT (09:27)
--- NOTE | 2019-07-09 10:05 | CASEMGMT ---
Social Work Note Pt is still on vent. SW received consult for substance abuse. SW will meet with pt once pt is off vent. Darby Christianson [employer], [employer]
--- NOTE | 2019-07-09 10:19 | CASEMGMT ---
RN CM Assessment Presentation: Unresponsiveness secondary to opioid overdose Intro role of CM and purpose of RN CM assessment to patient's mother and grandmother in room. Pt is intubated, not able to participate in assessment. Demographics, PCP and pharmacy verified. Mom states pt has been to [place] for heroin treatment 7 years ago, and has been to [facility] intermittently over past few years, last time was over 2 years ago per mother. Mother states pt has had intermittent success being clean but currently is having difficulty. 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 PCP: Pt had PCP @ [facility]. This was terminated and pt was to pick another PCP. RN CM called to [facility] [place] and per rep- no new PCP has been chosen. They will not make any appt for pt until he calls to set up first visit. Preferred Pharmacy: [facility] Retail Insurance: [facility] Community Plan Prescription Benefit: yes LNOK: Mother, Elida Parmar Living Arrangements: Lives independently with his mother and grandmother. 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 Transportation: does not drive. Mother will drive. DME: none HHC: none consult: for drug rehab options. information on [facility]. Patient DC goals: undetermined. Pt unable to participate. DC PLAN: undetermined. Meir ROACH RN ACM
[2019-07-09 10:28] LABS: BNP,B-Type NATRIURETIC PEPTIDE 5.1 pg/mL (0-100)
[2019-07-09 10:48] LABS: HIV - WCH Non-Reactive (Nonreactive)
[2019-07-09] MEDS: Albuterol 2.5 MG/3 ML VIAL.NEB. INHALATION (12:01)
[2019-07-09 12:56] LABS: Chlamydia Trachomatis by PCR Negative (Negative); Neisserai gonorrhoeae by PCR Negative (Negative); Probe Check PASS; Sample Adequacy Control PASS; Specimen Processing Control PASS
[2019-07-09] MEDS: Magnesium Hydroxide 30 ML UDC GT (16:09)
[2019-07-09] MEDS: fentaNYL drip 100 ML 20 MCG IV (20:14)
--- NOTE | 2019-07-09 23:41 | NURSING ---
High residuals of stomach contents even though tube feed is off. Withdrew 320ml of yellow/green. Reinstilled 60ml of residual and flushed OGT with 60ml of sterile water.
[2019-07-10] VITALS (35 sets, daily range): BP systolic 122–147; BP diastolic 59–93; PULSE 76–126; RESP 14–33; TEMP 37.6–38.6; O2SAT 90–97
[2019-07-10] MEDS: Ipratropium/Albuterol Sulfate 3 ML AMPUL.NEB INHALATION ×4 (00:15→19:09)
[2019-07-10] MEDS: LORazepam 2 MG/ML Syringe IV ×2 (00:28→02:56)
[2019-07-10] MEDS: 0.9% NaCl Peripheral Flush Adult/Peds IV ×2 (00:28→02:56)
[2019-07-10] MEDS: 0.9% NaCl IVPB Med Flush (250 mL) 15 ML IV (01:18)
[2019-07-10] MEDS: fentaNYL drip 100 ML 20 MCG IV (01:19)
--- NOTE | 2019-07-10 02:33 | NURSING ---
Pt is impulsive. Will be laying quietly and spontaneously sit up in an attempt to pull ETT. Bites down on tube and restricts O2 supply. Difficult to console and redirect. Will shake his head appropriately to yes/no questions and makes eye contact and acknowledges understanding of instructions, but will not comply with directions to maintain pt safety.
[2019-07-10 04:22] LABS: Anion Gap 4 (5-15); BUN 7 mg/dL (7-18); BUN/Creat Ratio 13.7 RATIO (10-20); Calcium,Total 8.4 mg/dL (8.5-10.1); Chloride 105 mmol/L (98-107); Creatinine, Serum 0.51 mg/dL (0.70-1.30); EST Glomerular Filtration Rate 202 mL/min (>60); Est Glom Filt Rate - Afr Amer 244 mL/min (>60); Estimated Creatinine Clearance 223.18 ml/min; Glucose 125 mg/dL (74-106); Potassium 3.7 mmol/L (3.5-5.1); Sodium Level 140 mmol/L (136-145)
[2019-07-10] MEDS: TITRATION PARAMETER CHANGE 1 EACH IV (05:57)
--- NOTE | 2019-07-10 06:28 | PN_ITS ---
Subjective: The patient was seen and examined at the bedside this morning. Events from the last 24 hours have been reviewed. The patient remains febrile with a T-max overnight of 101.4 ?F. He remains hemodynamically stable with minimal FiO2 requirement. The patient continues to have issues with agitation and has been difficult to direct, despite high doses of fentanyl and Precedex. The patient was also medicated with PRN Ativan as well. He continues to have thin secretion production. Tube feeds were placed on hold yesterday afternoon due to high residuals. Following reductions in the amount of Precedex and fentanyl being infused, the patient was evaluated at the bedside and found to be alert, directable and able to follow commands. The decision was made at that time to place all of his sedating medications on hold and proceed with a trial of extubation, which occurred under my direct supervision at the bedside. The patient was then placed on nasal cannula supplemental oxygen. Restraints were discontinued. Objective: The patient's most recent lab work, culture data and imaging studies have all been personally reviewed. Infectious work up has been unrevealing to date. Surface echocardiogram revealed normal LV size and function with an ejection fraction of 55%. General: - - Remains intubated, sedated and mechanically ventilated. HEENT: Atraumatic, PERRLA, Normocephalic, - - Abrasions over bridge of nose as previously noted. Oral: No Gingival or Mucosal Lesions/ Ulcerations, - - Endotracheal and OG tubes remain in place Neck: Supple, No Nodes, Trachea Midline Lungs: - - Clear across anterior lung red without appreciable wheezes, rales or rhonchi. Cardiovascular: Regular rate, Regular Rhythm, Normal S1, Normal S2, No murmurs Abdomen: Bowel Sounds Present, Soft, Non Tender Extremities: No clubbing, No cyanosis, No edema Skin: No breakdown Musculoskeletal: No Muscle Wasting Lymphatic: No Cervical, Supraclavicular, or Inguinal Adenopathy Neurological: - - No focal neurological deficits. Presently, the patient is arousable and able to follow simple commands. Psych/Mental Status: - - Intermittently agitated and restless. Vital Signs Temp Pulse Resp BP Pulse Ox 100.4 F H 76 15 132/81 H 95 07/10/19 06:00 07/10/19 06:00 07/10/19 06:00 07/10/19 06:00 07/10/19 06:00 Oxygen Flow Rate (L/min) 25 Oxygen Delivery Method Mechanical Ventilator Weight: 165 lb 12.602 oz Body Mass Index (BMI) 22.4 Intake and Output for Last 24 Hours 07/08/19 07/09/19 07/10/19 23:59 23:59 23:59 Intake Total 3214.83 / 3766.23 4639.38 / 4639.38 745.65 / 745.65 Output Total 2550 / 2875 2195 / 2195 475 / 475 Balance 664.83 / 891.23 2444.38 / 2444.38 270.65 / 270.65 Labs (Last 48 Hours) 07/08/19 07/09/19 07/09/19 06:43 06:10 06:10 WBC 8.2 RBC 3.74 L Hgb 11.5 L Hct 34.4 L MCV 92.0 MCH 30.7 MCHC 33.4 RDW Std Deviation 46.1 H RDW Coeff of Zari 13.5 Plt Count 132 L MPV 10.5 Immature Gran % (Auto) 0.200 Neut % (Auto) 82.3 H Lymph % (Auto) 8.5 L [place] % (Auto) 7.2 Eos % (Auto) 1.6 Baso % (Auto) 0.2 Absolute Neuts (auto) 6.7 Absolute Lymphs (auto) 0.69 L Nucleated RBC % 0 Specimen Type ART Sample Site R Radial pH 7.34 L Bicarbonate Actual 28.4 H POC Total CO2 30 Base Excess 3 H O2 Saturation 97 O2 % 45 ABG pCO2 52.2 H ABG pO2 100 Kofi Test NA Respiration Rate 14 O2 Delivery Device Vent Minute Volume 6.00 Vent Mode A-C Tidal Volume 450 POC PEEP 8 Blood Gas Notified Whom ICU Blood Gas Notified Time 642 Sodium Potassium Chloride Carbon Dioxide Anion Gap BUN Creatinine Estim Creat Clear Calc Est GFR (MDRD) Af Amer Est GFR (MDRD) Non-Af BUN/Creatinine Ratio Glucose Calcium Magnesium Total Bilirubin AST ALT Alkaline Phosphatase B-Natriuretic Peptide Total Protein Albumin Globulin Albumin/Globulin Ratio Vancomycin Trough 5.7 RPR Chlamydia DNA (PARIS) Chlam trachomat DNA PCR Hepatitis A IgM Ab Hepatitis A Ab Total Hep Bs Antigen Hep B Core Total Ab Hep B Core IgM Ab HIV 1&2 Antibody N.gonorrhoeae DNA (PCR) N.gonorrhoeae DNA (PARIS) 07/09/19 07/09/19 07/09/19 06:10 06:10 06:10 WBC RBC Hgb Hct MCV MCH MCHC RDW Std Deviation RDW Coeff of Zari Plt Count MPV Immature Gran % (Auto) Neut % (Auto) Lymph % (Auto) [place] % (Auto) Eos % (Auto) Baso % (Auto) Absolute Neuts (auto) Absolute Lymphs (auto) Nucleated RBC % Specimen Type Sample Site pH Bicarbonate Actual POC Total CO2 Base Excess O2 Saturation O2 % ABG pCO2 ABG pO2 Kofi Test Respiration Rate O2 Delivery Device Minute Volume Vent Mode Tidal Volume POC PEEP Blood Gas Notified Whom Blood Gas Notified Time Sodium 140 Potassium 3.2 L Chloride 103 Carbon Dioxide 33.0 H Anion Gap 4 L BUN 7 Creatinine 0.52 L Estim Creat Clear Calc 218.88 Est GFR (MDRD) Af Amer 237 Est GFR (MDRD) Non-Af 196 BUN/Creatinine Ratio 13.3 Glucose 127 H Calcium 8.5 Magnesium 1.8 Total Bilirubin 0.60 AST 15 ALT 21 Alkaline Phosphatase 49 49 B-Natriuretic Peptide Total Protein 5.9 L Albumin 2.8 L Globulin 3.1 Albumin/Globulin Ratio 0.9 Vancomycin Trough RPR Pending Chlamydia DNA (PARIS) Chlam trachomat DNA PCR Hepatitis A IgM Ab Hepatitis A Ab Total Hep Bs Antigen Hep B Core Total Ab Hep B Core IgM Ab HIV 1&2 Antibody N.gonorrhoeae DNA (PCR) N.gonorrhoeae DNA (PARIS) 07/09/19 07/09/19 07/09/19 06:10 09:20 09:20 WBC RBC Hgb Hct MCV MCH MCHC RDW Std Deviation RDW Coeff of Zari Plt Count MPV Immature Gran % (Auto) Neut % (Auto) Lymph % (Auto) [place] % (Auto) Eos % (Auto) Baso % (Auto) Absolute Neuts (auto) Absolute Lymphs (auto) Nucleated RBC % Specimen Type Sample Site pH Bicarbonate Actual POC Total CO2 Base Excess O2 Saturation O2 % ABG pCO2 ABG pO2 Kofi Test Respiration Rate O2 Delivery Device Minute Volume Vent Mode Tidal Volume POC PEEP Blood Gas Notified Whom Blood Gas Notified Time Sodium Potassium Chloride Carbon Dioxide Anion Gap BUN Creatinine Estim Creat Clear Calc Est GFR (MDRD) Af Amer Est GFR (MDRD) Non-Af BUN/Creatinine Ratio Glucose Calcium Magnesium Total Bilirubin AST ALT Alkaline Phosphatase B-Natriuretic Peptide 5.1 Total Protein Albumin Globulin Albumin/Globulin Ratio Vancomycin Trough RPR Chlamydia DNA (PARIS) Chlam trachomat DNA PCR Hepatitis A IgM Ab Pending Hepatitis A Ab Total Pending Hep Bs Antigen Pending Hep B Core Total Ab Pending Hep B Core IgM Ab Pending HIV 1&2 Antibody Non-Reactive N.gonorrhoeae DNA (PCR) N.gonorrhoeae DNA (PARIS) 07/09/19 07/09/19 07/10/19 10:44 10:46 04:00 WBC RBC Hgb Hct MCV MCH MCHC RDW Std Deviation RDW Coeff of Zari Plt Count MPV Immature Gran % (Auto) Neut % (Auto) Lymph % (Auto) [place] % (Auto) Eos % (Auto) Baso % (Auto) Absolute Neuts (auto) Absolute Lymphs (auto) Nucleated RBC % Specimen Type Sample Site pH Bicarbonate Actual POC Total CO2 Base Excess O2 Saturation O2 % ABG pCO2 ABG pO2 Kofi Test Respiration Rate O2 Delivery Device Minute Volume Vent Mode Tidal Volume POC PEEP Blood Gas Notified Whom Blood Gas Notified Time Sodium 140 Potassium 3.7 Chloride 105 Carbon Dioxide 31.0 Anion Gap 4 L BUN 7 Creatinine 0.51 L Estim Creat Clear Calc 223.18 Est GFR (MDRD) Af Amer 244 Est GFR (MDRD) Non-Af 202 BUN/Creatinine Ratio 13.7 Glucose 125 H Calcium 8.4 L Magnesium Total Bilirubin AST ALT Alkaline Phosphatase B-Natriuretic Peptide Total Protein Albumin Globulin Albumin/Globulin Ratio Vancomycin Trough RPR Chlamydia DNA (PARIS) Cancelled Chlam trachomat DNA PCR Negative Hepatitis A IgM Ab Hepatitis A Ab Total Hep Bs Antigen Hep B Core Total Ab Hep B Core IgM Ab HIV 1&2 Antibody N.gonorrhoeae DNA (PCR) Negative N.gonorrhoeae DNA (PARIS) Cancelled Microbiology 07/08/19 00:45 Sputum, Induced/Lukens Gram Stain - Final 07/08/19 00:45 Sputum, Induced/Lukens Respiratory Culture - Preliminary Culture exhibits no growth. 07/07/19 15:55 Urine, Clean Catch Urine Culture - Preliminary Culture exhibits no growth. 07/08/19 10:20 Urine Catheter - Mcclure Streptococcus pneumoniae Antigen (M - Final 07/08/19 10:20 Urine Catheter - Mcclure Legionella Antigen - Final Clinical Impression(s) from Imaging Studies Chest X-Ray 07/07/19 14:05 IMPRESSION: Multilobar mixed infiltrates suggesting pulmonary edema or pneumonia. Electronically Signed: Tacho Arzola MD ([facility]) at 14:56 EDT , Service support , Brain CT 07/07/19 14:10 IMPRESSION: No acute intracranial hemorrhage or mass effect. Electronically Signed: Tacho Arzola MD ([facility]) at 14:59 EDT , Service support , Chest X-Ray 07/07/19 18:00 IMPRESSION: 1. Endotracheal tube less than 1 cm from the dimas, consider partial retraction 2. Presumably normal position of gastric drainage tube, attention to position is advised on the next image. 3. Severe diffuse lung disease, likely noncardiogenic pulmonary edema/acute alveolar injury. Consider inhalational injury versus pneumonia. Electronically Signed: Hyacinth Dumont at 18:34 EDT Tel , Service support , Chest X-Ray 07/08/19 05:55 IMPRESSION: Moderate favorable change. Partial clearing of bilateral airspace disease. Electronically Signed: Tacho Arzola MD ([facility]) at 12:14 EDT , Service support , Medical Necessity - Tobacco Use Smoking Status: Current every day smoker Tobacco Use: Cigarettes Assessment/Plan All Active Problems Unresponsiveness (Acute) Respiratory failure (Acute) Polysubstance (including opioids) dependence with physiol dependence (Acute) Nicotine abuse (Acute) Lactic acidosis (Acute) RECOMMENDATIONS: 1. Proceed with a trial of extubation this morning. 2. Discontinue fentanyl, Precedex and as needed Ativan. 3. Wean supplemental oxygen to maintain saturations at or above 90%. 4. Perform bedside swallow evaluation today and advance diet as tolerated. 5. Encourage incentive spirometer use and mobilize patient as tolerated. 6. Remove Mcclure catheter. 7. Continue antimicrobials, pending finalized culture results. 8. Continue appropriate ICU prophylaxis IMPRESSIONS: 1. Acute combined respiratory failure in the setting of acute heroin overdose Potential etiologies include aspiration versus chemical pneumonitis, along with negative pressure pulmonary edema. The patient did reportedly have an episode of emesis with a BiPAP in place. Plan to continue current supportive measures with broad-spectrum antimicrobial coverage, pending finalized culture results. If cultures are found to be negative, the patient can likely be transitioned to Unasyn to complete a 7-day treatment course for potential aspiration. The patient's sedation regimen was optimized yesterday and he was able to be successfully extubated this morning. He will be continued on supplemental oxygen with a goal to maintain saturations at or above 90%. We will plan to perform bedside swallow evaluation and advance diet accordingly. Encourage incentive spirometer use and mobilize patient as tolerated. 2. Personal history of polysubstance abuse/recent dog bite/nicotine abuse Complicates care, management, recovery and prognosis. Continue current supportive measures as noted above. Case management/social work to assist with disposition issues. TIME: 35 minutes of critical care time, independent of procedures, was spent addressing the patient's acute combined respiratory failure, acute heroin overdose, review of all data and collaboration with the care team. ([id number]) Code Visit [id number]: [id number] Critical care first hour
--- NOTE | 2019-07-10 06:42 | NURSING ---
Order received to reduce sedation to specific rates for awakening trial, bypassing titration schedule.
--- NOTE | 2019-07-10 07:12 | CPS ---
pt not cooperative with aerosol, took mask off after 2 min, will not allow R.T. to finish aerosol.
--- NOTE | 2019-07-10 07:13 | NURSING ---
Addendum entered by Nereida Jackson 07/10/19 07:14: O2 NC 3L applied. Pt had strong cough and pulse ox >90 with 3L. Original Note: Pt extubated at 06:[address] Roth at bedside and RT.
--- NOTE | 2019-07-10 07:40 | PCM.PROGNOTE ---
Patient Problems: Active and Suspected Problems Unresponsiveness (Acute) Respiratory failure (Acute) Polysubstance (including opioids) dependence with physiol dependence (Acute) Nicotine abuse (Acute) Lactic acidosis (Acute) Subjective: Day #3 vancomycin Day #4 Zosyn All events of the past 24 hours of been reviewed. He was extubated today and is currently on a nasal cannula at 3 L/min and is maintaining an oxygen saturation of 90 to 92%. T-max over the past 24 hours is 101.4 2 AM this morning. Temp is 100 ?F. Fluid balance since admission is +3500. All lab was personally reviewed. Potassium has been adequately repleted and is 3.7 today. The BUN is 7 with a creatinine at 0.51. Chlamydia DNA in the urine was negative. Gonorrhea DNA was negative. HIV was nonreactive and hepatitis panel is pending. BNP was 5.1. Echocardiogram showed normal left ventricular systolic function with an estimated EF of 55%. Valvular heart disease and normal diastology for age. - Physical Exam Vitals/I&O's: Vital Signs Temp Pulse Resp BP Pulse Ox 100 F H 80 20 H 135/80 H 90 07/10/19 07:00 07/10/19 07:15 07/10/19 07:00 07/10/19 07:00 07/10/19 07:00 Oxygen Flow Rate (L/min) 3 Oxygen Delivery Method Nasal Cannula Weight: 165 lb 12.602 oz Body Mass Index (BMI) 22.4 Intake and Output for Last 24 Hours 07/08/19 07/09/19 07/10/19 23:59 23:59 23:59 Intake Total 3214.83 / 3766.23 4639.38 / 4639.38 803.36 / 803.36 Output Total 2550 / 2875 2195 / 2195 475 / 475 Balance 664.83 / 891.23 2444.38 / 2444.38 328.36 / 328.36 General: Cooperative, No apparent distress, - - just extubated and he is groggy and forgetful. HEENT: PERRLA, EOMI, Normocephalic, - - Multiple abrasions on his face are healing with no sign of infection. Oral: Dry Mucosa Neck: Supple, No JVD, Negative Carotid Bruits, No Nodes, Trachea Midline Lungs: Rhonchi, - - poor inspiratory effort, no rales Cardiovascular: Regular Rhythm, Normal S1, Normal S2, No murmurs, No rub noted, No Gallop, Tachycardic, - - Telemetry shows sinus tachycardia and normal sinus rhythm with no significant ectopy. Abdomen: Bowel Sounds Present, Soft, Non Tender, Non-Distended Extremities: No clubbing, No cyanosis, No edema Skin: No rashes, No breakdown, - - He has some swelling over the second and third metacarpal phalangeal joints on the right hand with mild erythema. There is no significant increased warmth to touch. Other puncture wounds and bite desir show no evidence of infection. No purulent discharge, no obvious abscess formation. Musculoskeletal: No Muscle Wasting Neurological: Cranial nerves II-XII grossly intact, Neuro grossly intact Psych/Mental Status: Anxious, Depressed Microbiology Past 72 Hours 07/08/19 00:45 Sputum, Induced/Lukens Gram Stain - Final 07/08/19 00:45 Sputum, Induced/Lukens Respiratory Culture - Preliminary Culture exhibits no growth. 07/07/19 15:55 Urine, Clean Catch Urine Culture - Preliminary Culture exhibits no growth. 07/08/19 10:20 Urine Catheter - Mcclure Streptococcus pneumoniae Antigen (M - Final 07/08/19 10:20 Urine Catheter - Mcclure Legionella Antigen - Final Laboratory Results 07/09/19 06:10: Magnesium 1.8, Alkaline Phosphatase 49 07/09/19 06:10: RPR Pending 07/09/19 06:10: B-Natriuretic Peptide 5.1 07/09/19 09:20: Hepatitis A IgM Ab Pending, Hepatitis A Ab Total Pending, Hep Bs Antigen Pending, Hep B Core Total Ab Pending, Hep B Core IgM Ab Pending 07/09/19 09:20: HIV 1&2 Antibody Non-Reactive 07/09/19 10:44: Chlamydia DNA (PARIS) Cancelled, N.gonorrhoeae DNA (PARIS) Cancelled 07/09/19 10:46: Chlam trachomat DNA PCR Negative, N.gonorrhoeae DNA (PCR) Negative 07/10/19 04:00: Sodium 140, Potassium 3.7, Chloride 105, Carbon Dioxide 31.0, Anion Gap 4 L, BUN 7, Creatinine 0.51 L, Estim Creat Clear Calc 223.18, Est GFR (MDRD) Af Amer 244, Est GFR (MDRD) Non-Af 202, BUN/Creatinine Ratio 13.7, Glucose 125 H, Calcium 8.4 L Current Medications Acetaminophen (Tylenol Liquid) 650 mg GT Q6H PRN PRN PRN Reason: TEMP>101.5 Last Admin: 07/09/19 06:10 Dose: 650 mg Documented by: Albuterol Sulfate (Ventolin Aerosols) 2.5 mg INHALATION Q2H PRN PRN PRN Reason: SOB/Wheezing Last Admin: 07/09/19 12:01 Dose: 2.5 mg Documented by: Albuterol/Ipratropium (Duoneb) 3 ml INHALATION Q6H.RT MICHEAL Last Admin: 07/10/19 07:00 Dose: 3 ml Documented by: Chlorhexidine Gluconate () 1 each TOPICAL DAILY MICHEAL Last Admin: 07/09/19 03:28 Dose: 1 each Documented by: Famotidine 20 mg/ Sodium (Chloride) 10 mls @ 300 mls/hr IV Q24 MICHEAL Last Infusion: 07/09/19 09:18 Dose: Infused Documented by: Piperacillin Sod/Tazobactam (Sod 3.375 gm/ Sodium Chloride) 50 mls @ 12.5 mls/hr IV Q8 MICHEAL Last Admin: 07/10/19 05:50 Dose: 12.5 mls/hr Documented by: Sodium Chloride () 250 mls @ 15 mls/hr IV .[id number] PRN PRN Reason: SALINE FLUSH Last Infusion: 07/10/19 05:50 Dose: 0 mls/hr Documented by: Vancomycin IV Pharmacy to Dose (1 ea/ Sodium Chloride) 500 mls @ 250 mls/hr IV PRN PRN; Protocol PRN Reason: Rx to Dose Vancomycin HCl 2,000 mg/ (Sodium Chloride) 540 mls @ 250 mls/hr IV Q8H MICHEAL Last Admin: 07/10/19 06:03 Dose: 250 mls/hr Documented by: Sodium Chloride () 250 mls @ 15 mls/hr IV .[id number] PRN PRN Reason: Saline Flush Last Infusion: 07/10/19 06:03 Dose: 0 mls/hr Documented by: Magnesium Hydroxide (Milk Of Magnesia) 30 ml GT DAILY PRN PRN PRN Reason: Constipation Last Admin: 07/09/19 16:09 Dose: 30 ml Documented by: Ondansetron HCl (Zofran) 4 mg IV Q8H PRN PRN PRN Reason: NAUSEA/VOMITING Senna/Docusate Sodium (Senokot-S, Chantel-Colace) 1 tablet GT DAILY MICHEAL Last Admin: 07/09/19 09:27 Dose: 1 tablet Documented by: Sodium Chloride () 5 - 15 ml IV UD PRN PRN Reason: SALINE FLUSH Last Admin: 07/10/19 02:56 Dose: 10 ml Documented by: Medical Necessity - Tobacco Use Smoking Status: Current every day smoker Tobacco Use: Cigarettes Assessment/Plan All Active Problems Unresponsiveness (Acute) Respiratory failure (Acute) Polysubstance (including opioids) dependence with physiol dependence (Acute) Nicotine abuse (Acute) Lactic acidosis (Acute) Impressions 1. Acute combined respiratory failure secondary due to PNA vs pneumonitis due to aspiration due to acute opiate overdose. Continue broad spectrum antibiotics. Vanco and Unasyn. PNA likely due to aspiration. Extubated 07/10/2019. Maintaining appropriate oxygen saturation on a NC. 2. Hypokalemia -resolved with supplementation 3. Toxic encephalopathy due to opiate OD 4. Polysubstance abuse 5. chronic anxiety and depression - He tells me that he uses when he feels very sad and it is the only thing that makes him feel better. Asking for Klonopin today. He tells me it is what they give him in the hospital. 6. recent dog bit RUE.....wounds are scabbed over and do not appear to be infected but there is some localized swelling of the second and third metacarpal phalangeal joints on the right hand. X-ray has been ordered. The XRAY showed a healed boxer type fracture of the right fifth metacarpal with overlying soft tissue swelling. No evidence of fracture at the metacarpal phalangeal joints of the second through fifth fingers. 7. + Hep C core antibody + - was negative in 2017 Continues to have some fevers. I spoke with the pt ans his mother and the mother states he is not making sense at times. He agreed to stay tonight but wants to go home. He said he will think about inpt rehab for dual diagnosis. I explained to his mother that they take walk ins at [facility] and that he will have to ask for help but, it may go better if she drives him there at [place] and goes in with him. Recheck the lab in the AM and get a PA and Lat CXR in the AM Denies any suicidal or homicidal ideation. Code Visit Inpatient E&M: 20561 Subs Hosp L3
[2019-07-10 08:14] LABS: HEPATITIS B SURFACE AG Negative (Negative); Hepatitis A AB, Total Negative (Negative); Hepatitis A IgM Antibody Negative (Negative); Hepatitis B Core AB IgM Negative (Negative); Hepatitis B Core Ab Total Negative (Negative); Hepatitis C Ab >11.0 s/co ratio (0.0-0.9)
--- NOTE | 2019-07-10 09:30 | CASEMGMT ---
Social Work Note SW spoke with RN who states pt is still sleepy and groggy this morning. SW spoke with Physician who states she will be talking with pt and pt's mother about [facility] when pt's mother arrives to ICU. SW informed physician to let this worker know if assistance is needed with discussion of [facility]. SW spoke with physician about [facility] and walk in appointments and how it would be beneficial for pt's mother to take pt to [facility] during walk in times to get assessment and get linked up with services. Physician states pt is staying at [facility] today. SW to remain available to assist. Darby Christianson [employer] CONTR[employer], [employer]
[2019-07-10] MEDS: Senna/Docusate Sodium 1 Tablet PO (10:17)
[2019-07-10] MEDS: Famotidine 200 MG/20 ML MDV 20 MG in 0.9% Normal Saline (Pres. free 8 ML 300 MG IV ×2 (10:18→20:56)
--- NOTE | 2019-07-10 11:10 | RAD_ITS ---
STUDY: X-RAY - RIGHT HAND REASON FOR EXAM: Male, 29 years old. Pain and swelling following injury to the second third and fourth metacarpals. TECHNIQUE: 3 view(s) of the hand. COMPARISON: Comparison is made with prior examination dated July 06, 2019. FINDINGS: Normal radiocarpal articulation. Normal distal radioulnar joint. Normal visualized carpal bones. Normal carpal articulations Normal carpometacarpal articulation of the thumb. Normal second through fifth carpometacarpal joints. Deformity of the fifth metacarpal in keeping with a healed boxer type fracture. Normal metacarpophalangeal joint of the thumb. Normal interphalangeal joint of the thumb. Normal proximal and distal phalanges of the thumb. Normal metacarpophalangeal joints of the second through fifth fingers. Normal proximal and distal interphalangeal joints of the second through fifth fingers. Normal phalanges of the second through fifth fingers. Soft tissue swelling. RAD/Hand Min 3 Views IMPRESSION: Healed boxer type fracture with evidence of overlying soft tissue swelling. Electronically Signed: Govind Gamez, at 14:11 EDT , Service support ,
[2019-07-10 14:43] LABS: Hep B Surface Antibodies Non Reactive (.)
--- NOTE | 2019-07-10 14:54 | CHAPLAIN ---
introduction to support; patient was seen by this groundskeeping maintenance in previous admission; pt requests groundskeeping maintenance to return later due to desire for sleep
[2019-07-10 15:53] LABS: Vancomycin, Trough Level 8.2 ug/mL (5.0-15.0)
--- NOTE | 2019-07-10 16:06 | PCM.RX.CS ---
Consult Pharmacy has been consulted to manage selected antiobiotic: Vancomycin Type of Consult: Follow-up Suspected Infection: Pneumonia Prior Doses of Antibiotics Received/Current Regimen: Currently on 2000mg IV q8h Labs: Sodium 140 mmol/L (136-145) 07/10/19 04:00 Potassium 3.7 mmol/L (3.5-5.1) 07/10/19 04:00 Chloride 105 mmol/L (98-107) 07/10/19 04:00 Carbon Dioxide 31.0 mmol/L (21.0-32.0) 07/10/19 04:00 Anion Gap 4 (5-15) L 07/10/19 04:00 BUN 7 mg/dL (7-18) 07/10/19 04:00 Creatinine 0.51 mg/dL (0.70-1.30) L 07/10/19 04:00 Est GFR (MDRD) Af Amer 244 mL/min (>60) 07/10/19 04:00 Est GFR (MDRD) Non-Af 202 mL/min (>60) 07/10/19 04:00 BUN/Creatinine Ratio 13.7 RATIO (10-20) 07/10/19 04:00 Glucose 125 mg/dL (74-106) H 07/10/19 04:00 Vancomycin Trough 8.2 ug/mL (5.0-15.0) 07/10/19 14:45 Microbiology: Microbiology 07/08/19 00:45 Sputum, Induced/Lukens Gram Stain - Final 07/08/19 00:45 Sputum, Induced/Lukens Respiratory Culture - Final Mixed normal respiratory danae. No Streptococcus pneumoniae, beta-hemolytic Streptococcus or Staphylococcus aureus isolated. 07/07/19 15:55 Urine, Clean Catch Urine Culture - Final Culture exhibits no growth. 07/08/19 10:20 Urine Catheter - Mcclure Streptococcus pneumoniae Antigen (M - Final 07/08/19 10:20 Urine Catheter - Mcclure Legionella Antigen - Final Weight used for dosin.2 kg Estimated Creatinine Clearance: 223 ml/min Goal Trough: 15-20 mcg/mL Pharmacy Plan for Drug Dosing: Trough obtained before this morning's dose came back as 8.2. While this is below the goal range, the patient is pretty much at maximum dosing so hesitant to go any higher. Will obtain another trough tomorrow after a few more doses to see if the trough level has gone up at all again, as it did go up from 5.7 on 07/09 to 8.2 today. Pharmacy Service will continue to monitor and adjust dosing as required. Follow-Up Labs: Trough Vancomycin Labs to be done on [date and time ordered]: 07/11/19 14:30
[2019-07-10] MEDS: Sertraline 50 MG Tablet PO (17:59)
[2019-07-10] MEDS: busPIRone 5 MG Tablet PO (17:59)
[2019-07-10] MEDS: LORazepam 0.5 MG Tablet PO (21:31)
[2019-07-11] VITALS (20 sets, daily range): BP systolic 100–147; BP diastolic 52–102; PULSE 81–108; RESP 15–39; TEMP 36.7–37.5; O2SAT 91–97
[2019-07-11] MEDS: 0.9% NaCl IVPB Med Flush (250 mL) 15 ML IV (00:37)
[2019-07-11] MEDS: Albuterol 2.5 MG/3 ML VIAL.NEB. INHALATION (03:30)
[2019-07-11 03:33] LABS: Absolute Lymphocyte Count 0.66 X10^3/uL (0.83-4.51); Absolute Neutrophil Count 4.6 X10^3/uL (2.0-7.7); Basophil# 0.01 X10^3/uL; Basophil% 0.2 % (0-1); Eosinophil# 0.04 X10^3/uL; Eosinophils% 0.7 % (0-5); Hematocrit 32.7 % (40-54); Hemoglobin 11.1 g/dL (13.0-16.5); Lymphocyte # 0.66 X10^3/ul (4.0); Lymphocyte % 10.9 % (19-41); Mean Corp Hgb Conc 33.9 g/dL (32-36); Mean Corpuscular Hgb 30.7 pg (27.0-32.0); Mean Corpuscular Volume 90.3 fL (80-94); Mean Platelet Vol. 9.6 fl (6.2-12.0); Monocyte# 0.71 X10^3/uL; Monocyte% 11.7 % (0-10); NRBC Flagged by Analyzer 0 % (0-5); Neutrophil # 4.63 X10^3/uL (2.7-7.7); Neutrophil % 76.2 % (47-70); Platelet Count 171 K/mm3 (150-450); RBC Distribution Width CV 12.9 % (11.6-14.6); RBC Distribution Width SD 43.2 fl (35.1-43.9); Red Blood Count 3.62 M/mm3 (4.6-6.2); White Blood Count 6.1 K/mm3 (4.4-11.0)
[2019-07-11 03:43] LABS: Anion Gap 7 (5-15); BUN 6 mg/dL (7-18); BUN/Creat Ratio 14.1 RATIO (10-20); Calcium,Total 8.3 mg/dL (8.5-10.1); Chloride 109 mmol/L (98-107); Creatinine, Serum 0.43 mg/dL (0.70-1.30); EST Glomerular Filtration Rate 250 mL/min (>60); Est Glom Filt Rate - Afr Amer 302 mL/min (>60); Estimated Creatinine Clearance 267.18 ml/min; Glucose 113 mg/dL (74-106); Potassium 3.4 mmol/L (3.5-5.1); Sodium Level 142 mmol/L (136-145)
[2019-07-11] MEDS: 0.9% NaCl Peripheral Flush Adult/Peds IV ×2 (04:06→21:08)
--- NOTE | 2019-07-11 06:33 | PN_ITS ---
Subjective: The patient was seen and examined at the bedside this morning. Events from the last 24 hours have been reviewed. The patient is currently afebrile, hemodynamically stable and maintaining appropriate oxygen saturations on room air. The patient has done well from a respiratory perspective following extubation yesterday. He is agreeable to considering inpatient drug rehab. Objective: The patient's most recent lab work, culture data and imaging studies have all been personally reviewed. Infectious work up has been unrevealing to date. Surface echocardiogram revealed normal LV size and function with an ejection fraction of 55%. General: Alert, Cooperative, No apparent distress HEENT: Atraumatic, PERRLA, Normocephalic Oral: No Gingival or Mucosal Lesions/ Ulcerations Neck: Supple, No Nodes, Trachea Midline Lungs: Normal air movement Cardiovascular: Regular rate, Regular Rhythm, Normal S1, Normal S2, No murmurs Abdomen: Bowel Sounds Present, Soft, Non Tender Extremities: No clubbing, No cyanosis, No edema Skin: No breakdown Musculoskeletal: No Tenderness to Palpation of Joints or Extremities Lymphatic: No Cervical, Supraclavicular, or Inguinal Adenopathy Neurological: Cranial nerves II-XII grossly intact, Neuro grossly intact Psych/Mental Status: Normal Affect, Appropriate Vital Signs Temp Pulse Resp BP Pulse Ox 99.1 F 84 38 H 132/72 H 93 07/11/19 02:00 07/11/19 06:00 07/11/19 06:00 07/11/19 06:00 07/11/19 06:00 Oxygen Flow Rate (L/min) 2 Oxygen Delivery Method Room Air Weight: 158 lb 11.725 oz Body Mass Index (BMI) 22.4 Intake and Output for Last 24 Hours 07/09/19 07/10/19 07/11/19 23:59 23:59 23:59 Intake Total 4639.38 / 4639.38 2792.11 / 2792.11 1077.00 / 1077.00 Output Total 2195 / 2195 2200 / 2200 1500 / 1500 Balance 2444.38 / 2444.38 592.11 / 592.11 -423.00 / -423.00 Labs (Last 48 Hours) 07/09/19 07/09/19 07/09/19 06:10 06:10 06:10 WBC RBC Hgb Hct MCV MCH MCHC RDW Std Deviation RDW Coeff of Zari Plt Count MPV Immature Gran % (Auto) Neut % (Auto) Lymph % (Auto) [place] % (Auto) Eos % (Auto) Baso % (Auto) Absolute Neuts (auto) Absolute Lymphs (auto) Nucleated RBC % Sodium 140 Potassium 3.2 L Chloride 103 Carbon Dioxide 33.0 H Anion Gap 4 L BUN 7 Creatinine 0.52 L Estim Creat Clear Calc 218.88 Est GFR (MDRD) Af Amer 237 Est GFR (MDRD) Non-Af 196 BUN/Creatinine Ratio 13.3 Glucose 127 H Calcium 8.5 Magnesium 1.8 Total Bilirubin 0.60 AST 15 ALT 21 Alkaline Phosphatase 49 49 B-Natriuretic Peptide Total Protein 5.9 L Albumin 2.8 L Globulin 3.1 Albumin/Globulin Ratio 0.9 Vancomycin Trough 5.7 RPR Chlamydia DNA (PARIS) Chlam trachomat DNA PCR Hepatitis A IgM Ab Hepatitis A Ab Total Hep Bs Antigen Hep B Core Total Ab Hep B Core IgM Ab Hepatitis C Ab Confirm HIV 1&2 Antibody N.gonorrhoeae DNA (PCR) N.gonorrhoeae DNA (PARIS) 07/09/19 07/09/19 07/09/19 06:10 06:10 09:20 WBC RBC Hgb Hct MCV MCH MCHC RDW Std Deviation RDW Coeff of Zari Plt Count MPV Immature Gran % (Auto) Neut % (Auto) Lymph % (Auto) [facility] % (Auto) Eos % (Auto) Baso % (Auto) Absolute Neuts (auto) Absolute Lymphs (auto) Nucleated RBC % Sodium Potassium Chloride Carbon Dioxide Anion Gap BUN Creatinine Estim Creat Clear Calc Est GFR (MDRD) Af Amer Est GFR (MDRD) Non-Af BUN/Creatinine Ratio Glucose Calcium Magnesium Total Bilirubin AST ALT Alkaline Phosphatase B-Natriuretic Peptide 5.1 Total Protein Albumin Globulin Albumin/Globulin Ratio Vancomycin Trough RPR Pending Chlamydia DNA (PARIS) Chlam trachomat DNA PCR Hepatitis A IgM Ab Negative Hepatitis A Ab Total Negative Hep Bs Antigen Negative Hep B Core Total Ab Negative Hep B Core IgM Ab Negative Hepatitis C Ab Confirm >11.0 H HIV 1&2 Antibody N.gonorrhoeae DNA (PCR) N.gonorrhoeae DNA (PARIS) 07/09/19 07/09/19 07/09/19 09:20 10:44 10:46 WBC RBC Hgb Hct MCV MCH MCHC RDW Std Deviation RDW Coeff of Zari Plt Count MPV Immature Gran % (Auto) Neut % (Auto) Lymph % (Auto) [facility] % (Auto) Eos % (Auto) Baso % (Auto) Absolute Neuts (auto) Absolute Lymphs (auto) Nucleated RBC % Sodium Potassium Chloride Carbon Dioxide Anion Gap BUN Creatinine Estim Creat Clear Calc Est GFR (MDRD) Af Amer Est GFR (MDRD) Non-Af BUN/Creatinine Ratio Glucose Calcium Magnesium Total Bilirubin AST ALT Alkaline Phosphatase B-Natriuretic Peptide Total Protein Albumin Globulin Albumin/Globulin Ratio Vancomycin Trough RPR Chlamydia DNA (PARIS) Cancelled Chlam trachomat DNA PCR Negative Hepatitis A IgM Ab Hepatitis A Ab Total Hep Bs Antigen Hep B Core Total Ab Hep B Core IgM Ab Hepatitis C Ab Confirm HIV 1&2 Antibody Non-Reactive N.gonorrhoeae DNA (PCR) Negative N.gonorrhoeae DNA (PARIS) Cancelled 07/10/19 07/10/19 07/11/19 04:00 14:45 03:25 WBC 6.1 RBC 3.62 L Hgb 11.1 L Hct 32.7 L MCV 90.3 MCH 30.7 MCHC 33.9 RDW Std Deviation 43.2 RDW Coeff of Zari 12.9 Plt Count 171 MPV 9.6 Immature Gran % (Auto) 0.300 Neut % (Auto) 76.2 H Lymph % (Auto) 10.[address] [place] % (Auto) 11.7 H Eos % (Auto) 0.7 Baso % (Auto) 0.2 Absolute Neuts (auto) 4.6 Absolute Lymphs (auto) 0.66 L Nucleated RBC % 0 Sodium 140 Potassium 3.7 Chloride 105 Carbon Dioxide 31.0 Anion Gap 4 L BUN 7 Creatinine 0.51 L Estim Creat Clear Calc 223.18 Est GFR (MDRD) Af Amer 244 Est GFR (MDRD) Non-Af 202 BUN/Creatinine Ratio 13.7 Glucose 125 H Calcium 8.4 L Magnesium Total Bilirubin AST ALT Alkaline Phosphatase B-Natriuretic Peptide Total Protein Albumin Globulin Albumin/Globulin Ratio Vancomycin Trough 8.2 RPR Chlamydia DNA (PARIS) Chlam trachomat DNA PCR Hepatitis A IgM Ab Hepatitis A Ab Total Hep Bs Antigen Hep B Core Total Ab Hep B Core IgM Ab Hepatitis C Ab Confirm HIV 1&2 Antibody N.gonorrhoeae DNA (PCR) N.gonorrhoeae DNA (PARIS) 07/11/19 03:25 WBC RBC Hgb Hct MCV MCH MCHC RDW Std Deviation RDW Coeff of Zari Plt Count MPV Immature Gran % (Auto) Neut % (Auto) Lymph % (Auto) [facility] % (Auto) Eos % (Auto) Baso % (Auto) Absolute Neuts (auto) Absolute Lymphs (auto) Nucleated RBC % Sodium 142 Potassium 3.4 L Chloride 109 H Carbon Dioxide 26.0 Anion Gap 7 BUN 6 L Creatinine 0.43 L Estim Creat Clear Calc 267.18 Est GFR (MDRD) Af Amer 302 Est GFR (MDRD) Non-Af 250 BUN/Creatinine Ratio 14.1 Glucose 113 H Calcium 8.3 L Magnesium Total Bilirubin AST ALT Alkaline Phosphatase B-Natriuretic Peptide Total Protein Albumin Globulin Albumin/Globulin Ratio Vancomycin Trough RPR Chlamydia DNA (PARIS) Chlam trachomat DNA PCR Hepatitis A IgM Ab Hepatitis A Ab Total Hep Bs Antigen Hep B Core Total Ab Hep B Core IgM Ab Hepatitis C Ab Confirm HIV 1&2 Antibody N.gonorrhoeae DNA (PCR) N.gonorrhoeae DNA (PARIS) Microbiology 07/10/19 22:50 Stool C. difficile DNA Amplification - Final 07/08/19 00:45 Sputum, Induced/Lukens Gram Stain - Final 07/08/19 00:45 Sputum, Induced/Lukens Respiratory Culture - Final Mixed normal respiratory danae. No Streptococcus pneumoniae, beta-hemolytic Streptococcus or Staphylococcus aureus isolated. 07/07/19 15:55 Urine, Clean Catch Urine Culture - Final Culture exhibits no growth. Clinical Impression(s) from Imaging Studies Chest X-Ray 07/07/19 14:05 IMPRESSION: Multilobar mixed infiltrates suggesting pulmonary edema or pneumonia. Electronically Signed: Tacho Arzola MD ([place]) at 14:56 EDT , Service support , Brain CT 07/07/19 14:10 IMPRESSION: No acute intracranial hemorrhage or mass effect. Electronically Signed: Tacho Arzola MD ([place]) at 14:59 EDT , Service support , Chest X-Ray 07/07/19 18:00 IMPRESSION: 1. Endotracheal tube less than 1 cm from the dimas, consider partial retraction 2. Presumably normal position of gastric drainage tube, attention to position is advised on the next image. 3. Severe diffuse lung disease, likely noncardiogenic pulmonary edema/acute alveolar injury. Consider inhalational injury versus pneumonia. Electronically Signed: Hyacinth Amatokolton, at 18:34 EDT Tel , Service support , Chest X-Ray 07/08/19 05:55 IMPRESSION: Moderate favorable change. Partial clearing of bilateral airspace disease. Electronically Signed: Tacho Arzola MD ([facility]) at 12:14 EDT , Service support , Hand X-Ray 07/10/19 11:10 IMPRESSION: Healed boxer type fracture with evidence of overlying soft tissue swelling. Electronically Signed: Govind Gamez, at 14:11 EDT , Service support , Medical Necessity - Tobacco Use Smoking Status: Current every day smoker Tobacco Use: Cigarettes Assessment/Plan All Active Problems Unresponsiveness (Acute) Respiratory failure (Acute) Polysubstance (including opioids) dependence with physiol dependence (Acute) Nicotine abuse (Acute) Lactic acidosis (Acute) RECOMMENDATIONS: 1. Agree with transitioning to Augmentin to complete antibiotic treatment course. 2. Encourage incentive spirometer use and mobilize patient as tolerated. 3. Will sign off from a critical care perspective. IMPRESSIONS: 1. Acute combined respiratory failure in the setting of acute heroin overdose Resolved. Potential etiologies include aspiration versus chemical pneumonitis, along with negative pressure pulmonary edema. The patient did reportedly have an episode of emesis with a BiPAP in place. The patient will be transition to Augmentin to complete a treatment course for possible aspiration pneumonia. He is currently maintaining appropriate oxygen saturations on room air. Continue to encourage incentive spirometer use and mobilize patient as tolerated. 2. Personal history of polysubstance abuse/recent dog bite/nicotine abuse Complicates care, management, recovery and prognosis. Continue current supportive measures as noted above. Case management/social work to assist with disposition issues. This note was generated with [employer] software. It may contain incorrect words, spelling, and punctuation that were not noted in checking the note before signing. Code Visit Inpatient E&M: 26494 Subs Hosp L3
--- NOTE | 2019-07-11 07:03 | PN_ITS ---
Patient Problems: Active and Suspected Problems Unresponsiveness (Acute) Respiratory failure (Acute) Polysubstance (including opioids) dependence with physiol dependence (Acute) Nicotine abuse (Acute) Lactic acidosis (Acute) Subjective: Day #5 antibiotics-vancomycin and Unasyn currently Extubated 07/10/2019 T-max since midnight is 100.6 ?F. This is a temporal temperature. Vital signs are stable. He is 92 to 94% saturated on room air. Respiratory rates are high. Fluid balance is +3366 since admission. All lab was personally reviewed. The white blood cell count today is 6.1 with 76% neutrophils. Hemoglobin is 11.1 and stable and the platelet count is now normal at 171,000. Potassium is once again low at 3.4. BUN is 6 with a creatinine of 0.43. Stool for C. difficile was negative on 07/10/2019. Sputum Gram stain was normal respiratory danae. Physical therapy notes were reviewed. He was able to ambulate 200 feet yesterday with a slow cj will assist x2. At one point he required maximal assist x2 to correct left lateral loss of balance. He had posterior loss of balance while performing functional tasks at the sink. He was impulsive. He is much more alert today and able to focus on what I am saying. He is oriented x3 and appropriate. He is making good eye contact when he speaks to me today. His mother and social insurance administrator Amrita were in the room when I was talking to him. He is now agreeable to going to rehab. He has been seen at [facility] in the past but has not been treated as an inpatient. He agrees to allow his mother to take him to [facility] and intake as a walk-in. He also realizes that he needs help with controlling his anxiety/depression/social anxiety if he is going to be able to stay clean and sober. He denies any intravenous drug use. I did inform him that he now is + for hep C. 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 He was advised to always use a condom with sex and to inform all his sex partners that he is HIV +. He was also advised to follow up with ID after he has been clean for 6 months to get Hep C treated. Tells me that he was unable to sleep last night - Physical Exam Vitals/I&O's: Vital Signs Temp Pulse Resp BP Pulse Ox 99.1 F 84 38 H 132/72 H 93 07/11/19 02:00 07/11/19 06:00 07/11/19 06:00 07/11/19 06:00 07/11/19 06:00 Oxygen Flow Rate (L/min) 2 Oxygen Delivery Method Room Air Weight: 158 lb 11.725 oz Body Mass Index (BMI) 22.4 Intake and Output for Last 24 Hours 07/09/19 07/10/19 07/11/19 23:59 23:59 23:59 Intake Total 4639.38 / 4639.38 2792.11 / 2792.11 1077.00 / 1077.00 Output Total 2195 / 2195 2200 / 2200 1500 / 1500 Balance 2444.38 / 2444.38 592.11 / 592.11 -423.00 / -423.00 General: Alert, Oriented x3, Cooperative, No apparent distress, Well developed, Well nourished, - - Making good eye contact today and he is much more alert and appropriate. HEENT: PERRLA, EOMI, Normocephalic Oral: Moist Mucosa Neck: Supple, No JVD, No Nodes, Trachea Midline Lungs: Rhonchi - this improved significantly when I instructed him in how to appropriately take a deep breath. Good air exchange and no rales. Not tachypneic, no accessory muscle use, no conversational dyspnea, symmetric chest expansion. Cardiovascular: Regular rate, Regular Rhythm, Normal S1, Normal S2, No murmurs Abdomen: Bowel Sounds Present, Soft, Non Tender, Non-Distended, - - He did have bowel movements yesterday. He denies abdominal pain. Extremities: No clubbing, No cyanosis, No edema Skin: - - The puncture wounds and abrasions to his nose are healing. No evidence of cellulitis or abscess. Neurological: Cranial nerves II-XII grossly intact, Neuro grossly intact Psych/Mental Status: Appropriate - Calm, able to converse in a normal voice, not currently agitated Microbiology Past 72 Hours 07/10/19 22:50 Stool C. difficile DNA Amplification - Final 07/08/19 00:45 Sputum, Induced/Lukens Gram Stain - Final 07/08/19 00:45 Sputum, Induced/Lukens Respiratory Culture - Final Mixed normal respiratory danae. No Streptococcus pneumoniae, beta-hemolytic Streptococcus or Staphylococcus aureus isolated. 07/07/19 15:55 Urine, Clean Catch Urine Culture - Final Culture exhibits no growth. 07/08/19 10:20 Urine Catheter - [place] Streptococcus pneumoniae Antigen (M - Final 07/08/19 10:20 Urine Catheter - [place] Legionella Antigen - Final Laboratory Results 07/09/19 09:20: Hepatitis A IgM Ab Negative, Hepatitis A Ab Total Negative, Hep Bs Antigen Negative, Hep B Core Total Ab Negative, Hep B Core IgM Ab Negative, Hepatitis C Ab Confirm >11.0 H 07/10/19 14:45: Vancomycin Trough 8.2 07/11/19 03:25: WBC 6.1, RBC 3.62 L, Hgb 11.1 L, Hct 32.7 L, MCV 90.3, MCH 30.7, MCHC 33.9, RDW Std Deviation 43.2, RDW Coeff of Zari 12.9, Plt Count 171, MPV 9.6, Immature Gran % (Auto) 0.300, Neut % (Auto) 76.2 H, Lymph % (Auto) 10.9 L, [place] % (Auto) 11.7 H, Eos % (Auto) 0.7, Baso % (Auto) 0.2, Absolute Neuts (auto) 4.6, Absolute Lymphs (auto) 0.66 L, Nucleated RBC % 0 07/11/19 03:25: Sodium 142, Potassium 3.4 L, Chloride 109 H, Carbon Dioxide 26.0, Anion Gap 7, BUN 6 L, Creatinine 0.43 L, Estim Creat Clear Calc 267.18, Est GFR (MDRD) Af Amer 302, Est GFR (MDRD) Non-Af 250, BUN/Creatinine Ratio 14.1, Glucose 113 H, Calcium 8.3 L Current Medications Acetaminophen (Tylenol) 1,000 mg PO Q6H PRN PRN PRN Reason: Pain Score 1-3/10,Temp>100.5F Albuterol Sulfate (Ventolin Aerosols) 2.5 mg INHALATION Q2H PRN PRN PRN Reason: SOB/Wheezing Last Admin: 07/11/19 03:30 Dose: 2.5 mg Documented by: Albuterol/Ipratropium (Duoneb) 3 ml INHALATION Q6H.RT [facility] Last Admin: 07/11/19 01:00 Dose: Not Given Documented by: Buspirone HCl (Buspar) 5 mg PO DAILY [facility] Last Admin: 07/10/19 17:59 Dose: 5 mg Documented by: Chlorhexidine Gluconate () 1 each TOPICAL DAILY [facility] Last Admin: 07/10/19 15:50 Dose: Not Given Documented by: Sodium Chloride () 250 mls @ 15 mls/hr IV .[id number] PRN PRN Reason: SALINE FLUSH Last Infusion: 07/11/19 06:03 Dose: 0 mls/hr Documented by: Vancomycin IV Pharmacy to Dose (1 ea/ Sodium Chloride) 500 mls @ 250 mls/hr IV PRN PRN; Protocol PRN Reason: Rx to Dose Vancomycin HCl 2,000 mg/ (Sodium Chloride) 540 mls @ 250 mls/hr IV Q8H [facility] Last Admin: 07/11/19 06:03 Dose: 250 mls/hr Documented by: Sodium Chloride () 250 mls @ 15 mls/hr IV .[id number] PRN PRN Reason: Saline Flush Last Infusion: 07/10/19 22:16 Dose: Infused Documented by: Famotidine 20 mg/ Sodium (Chloride) 10 mls @ 300 mls/hr IV Q12 [facility] Last Infusion: 07/10/19 20:58 Dose: Infused Documented by: Ampicillin Sodium/Sulbactam (Sodium 3 gm/ Sodium Chloride) 112 mls @ 150 mls/hr IV Q6 [facility] Last Infusion: 07/11/19 05:47 Dose: Infused Documented by: Ibuprofen (Motrin) 400 mg PO Q6H PRN PRN PRN Reason: Pain Score 4-5/10 Magnesium Hydroxide (Milk Of Magnesia) 30 ml PO DAILY PRN PRN PRN Reason: Constipation Ondansetron HCl (Zofran) 4 mg IV Q8H PRN PRN PRN Reason: NAUSEA/VOMITING Senna/Docusate Sodium (Senokot-S, Chantel-Colace) 1 tablet PO DAILY [facility] Last Admin: 07/10/19 10:17 Dose: 1 tablet Documented by: Sertraline HCl (Zoloft) 50 mg PO DAILY [facility] Last Admin: 07/10/19 17:59 Dose: 50 mg Documented by: Sodium Chloride () 5 - 15 ml IV UD PRN PRN Reason: SALINE FLUSH Last Admin: 07/11/19 04:06 Dose: 15 ml Documented by: Medical Necessity - Tobacco Use Smoking Status: Current every day smoker Tobacco Use: Cigarettes Assessment/Plan All Active Problems Unresponsiveness (Acute) Respiratory failure (Acute) Polysubstance (including opioids) dependence with physiol dependence (Acute) Nicotine abuse (Acute) Lactic acidosis (Acute) Impressions 1. Acute combined respiratory failure secondary due to PNA vs pneumonitis due to aspiration due to acute opiate overdose. Transition to Augmentin 875 mg p.o. twice daily and doxycycline 100 mg p.o. twice daily area 2. Hypokalemia -resolved with supplementation 3. Toxic encephalopathy due to opiate OD-resolved 4. Polysubstance abuse 5. chronic anxiety and depression - He tells me that he uses when he feels very sad and it is the only thing that makes him feel better. Started on sertraline and BuSpar. 6. recent dog bit RUE.....wounds are scabbed over and do not appear to be infected but there is some localized swelling of the second and third metacarpal phalangeal joints on the right hand. X-ray has been ordered. The XRAY showed a healed boxer type fracture of the right fifth metacarpal with overlying soft tissue swelling. No evidence of fracture at the metacarpal phalangeal joints of the second through fifth fingers. 7. + Hep C core antibody + - was negative in 2017 8. insomnia - RX Seroquel at [facility] Transfer to [facility] Transition to Augmentin and Doxycycline DC tomorrow AM so his mother can take him to [facility] prior to going to work. SW is trying to get him an appt at the counselling center.......he has missed multiple appts. and they are hesitant to make and appt for him Code Visit Inpatient E&M: 07111 Subs Hosp L2
[2019-07-11] MEDS: Ipratropium/Albuterol Sulfate 3 ML AMPUL.NEB INHALATION ×3 (08:52→18:50)
[2019-07-11] MEDS: busPIRone 5 MG Tablet PO ×3 (09:14→21:04)
[2019-07-11] MEDS: Sertraline 50 MG Tablet PO (09:14)
[2019-07-11] MEDS: Famotidine 200 MG/20 ML MDV 20 MG in 0.9% Normal Saline (Pres. free 8 ML 300 MG IV (09:14)
--- NOTE | 2019-07-11 10:33 | CASEMGMT ---
SW and physician spoke w/pt together in regard to substance abuse and mental health. Pt's family present. Pt uncertain if he wants to go to an inpt facility for drug rehab, states wants to look into it. Pt is willing to follow up at [facility], has been there in the past. SW explained will call to see when they have open intake tomorrow, as he will be discharged tomorrow. SW also gave pt information on PCP's who take his insurance who are local, [facility] doctors who take his insurance(as he will eventually need to follow up w/ID), a list of inpt and outpt substance abuse programs, and information on [facility]. SW asked pt about getting into counseling, possibly at [facility], so he can also have support in regard to his mental health and have a psychiatrist follow for medication management. Pt agreeable to have SW set up appt, he states he has tried and there is always a 6-8 month wait. SW called [facility], pt can walk in tomorrow any time for an intake, should be there by 3pm. SW called [facility], was informed pt has missed multiple intake appts, including just one on June 19, and that SW will need to speak w/James Diallo to see if they would consider making an appointment for him again. SW left a message for James Diallo asking him to call this SW back. SW spoke w/pt and family again, explained that he can walk in to [facility] anytime tomorrow before 3pm. SW also explained that as per [facility] he has missed too many intakes, the most recent being June 19. SW explained left a message for James Diallo to see if they will reconsider for him, and had pt sign a consent so that SW may speak freely w/James when he returns call and advocate for pt. SW will continue to follow, waiting for call back from James Diallo at [facility] to see if they will reconsider scheduling an intake for pt. LAVERN Shipman
[2019-07-11] MEDS: Doxycycline 100 MG CAPSULE PO ×2 (15:15→21:04)
--- NOTE | 2019-07-11 17:00 | CHAPLAIN ---
Type of Pastoral Visit _x__ Initial Visit ___ Follow-up Visit ___ On-call Visit ___ General Patient Visit ___ Spiritual Assessment ___ Family Conference ___ Bereavement ___ Rapid Response ___ Code Blue ___ Other (describe below) Pastoral Care Referral From _x__ Patient ___ Family _x__ Nurse ___ Physician ___ Forest Botany Instructor ___ Artificial Flowers Supervisor ___ Other (describe below) Sacrament/Intervention _x__ Active listening ___ Anointing ___ Baptist ___ Bereavement ___ Communion _x__ Sara exploration ___ _x__ Life review _x__ Prayer ___ Reconciliation ___ Sacrament of Sick _x__ Supportive presence ___ Wedding ___ Other (describe below) Pastoral Comments patient was seen in 2017 when admitted to ICU then; pt and this emt paramedic have remembrance of that visit and we discuss life since; pt is talkative and very open to spiritual support; pt would like to beat the addiction but admits that he has been unsuccessful; pt is open to going to a sara based program for rehab and was given a list of local programs and sober living homes; pt welcomed prayer and future visits of support
[2019-07-11] MEDS: Famotidine 20 MG Tablet PO (21:04)
[2019-07-11] MEDS: QUEtiapine 25 MG Tablet 50 MG PO (21:04)
[2019-07-11] MEDS: Amox/Clavulanate 875 MG Tablet PO (21:04)
[2019-07-12 01:25] VITALS: PULSE 94; RESP 24
[2019-07-12] MEDS: Ipratropium/Albuterol Sulfate 3 ML AMPUL.NEB INHALATION ×2 (01:25→06:58)
[2019-07-12] MEDS: hydrOXYzine PAM 25 MG Capsule 50 MG PO (01:32)
[2019-07-12 02:00] VITALS: BP 148/73; PULSE 87; RESP 23; TEMP 37; O2SAT 96
[2019-07-12] MEDS: busPIRone 5 MG Tablet PO (06:09)
[2019-07-12 06:58] VITALS: PULSE 78; RESP 14; O2SAT 99
[2019-07-12 08:39] VITALS: BP 137/80; PULSE 85; RESP 27; TEMP 36.6; O2SAT 97
[2019-07-12] MEDS: Doxycycline 100 MG CAPSULE PO (08:45)
[2019-07-12] MEDS: Amox/Clavulanate 875 MG Tablet PO (08:46)
[2019-07-12] MEDS: Sertraline 50 MG Tablet PO (08:46)
[2019-07-12] MEDS: Famotidine 20 MG Tablet PO (08:46)
--- NOTE | 2019-07-12 09:18 | DCINST_ITS ---
- Discharge Diagnoses Current Active Problems: Current Active and Chronic Problems Unresponsiveness (Acute) Respiratory failure (Acute) Polysubstance (including opioids) dependence with physiol dependence (Acute) Nicotine abuse (Acute) Lactic acidosis (Acute) You will use the following diet at home:: No restrictions Your food should be the consistency of: Regular Your liquids should be the consistency of: Regular/Thin Discharge Activity: Return to Normal Activity Call your doctor if you observe: Fever of 101 or Higher, Inability to have a bowel movement, Shortness of breath, Dizziness, Fainting spells, Swelling in the ankles, Chest pain, - - Call your PCP if severe diarrhea ( > 5 stools a day), painful sores in the mouth, painful swallowing, rash or itching. Taking a probiotic such as Lactobacillus or Kefir can help with loose stools while taking antibiotics. Additional Instructions: I have started you on medications to help control your anxiety and depression. I have also given you a Prescription for Seroquel to help you sleep at night. The prescription is for a 50 mg tablet. Takle this at night when you are in bed. Take it on an empty stomach and it will take about 30 minutes to work......read or listen to music or spend time relaxing with [place]......If you take the medication when you are up and about it is not going to work as well. If after 4-5 nights you are still having trouble sleeping you can increase the dose to 2 tabs at bedtime. If you are going to conquer your addiction you will need to control your anxiety and depression. I think an inpatient facility would be very helpful for you. Sometimes it is difficult to get in to and inpatient program right away. If you stay clean and can not get into an inpatient facility for a few weeks you should/could follow up with Behavioral Health. Your test for Hepatitis C is positive. This can be treated to prevent developing cirrhosis of the liver in the future but, you have to be clean for 6 months before you can be treated. You will need to follow up with an infectious disease doctor to be treated. Roderick Benitez......you can do this.....help is available but, you have to ask for help and you need to be consistent with follow up and appts. Pending Tests on Discharge: Hepatitis C genotype, hepatitis C RNA quantitative, RPR Allergies/Adverse Reactions: Allergies No Known Allergies Allergy (Verified 07/07/19 14:02) Medications to take at Discharge Amoxicillin/Potassium Clav [Augmentin 875-125 Tablet] 1 ea PO BID #20 tab 07/06/19 Ibuprofen 600 mg PO 4X/DAY PRN #20 tab 07/06/19 Amox/Clavulanate Tablet [Augmentin Tablet] 875 mg PO BID #5 tab 07/12/19 Doxycycline 100 mg PO BID #5 cap 07/12/19 Quetiapine Fumarate [Seroquel] 50 mg PO QHS #30 tab 07/12/19 Sertraline HCl [Zoloft] 50 mg PO DAILY #30 tab 07/12/19 busPIRone [Buspar] 5 mg PO TID #90 tab 07/12/19 The following prescriptions were given: Amox/Clavulanate Tablet [Augmentin Tablet] 875 mg PO BID #5 tab Transmission Status: Pending to [facility] busPIRone [Buspar] 5 mg PO TID #90 tab Transmission Status: Pending to [facility] Doxycycline 100 mg PO BID #5 cap Transmission Status: Pending to [facility] Quetiapine Fumarate [Seroquel] 50 mg PO QHS #30 tab Transmission Status: Pending to [facility] Sertraline HCl [Zoloft] 50 mg PO DAILY #30 tab Transmission Status: Pending to [facility] Primary Care Physician: Care Physician,No Primary [Primary Care Provider] - Test Results: Test results from this visit will be discussed in further detail at your follow- up appointment, if applicable. Please Follow Up With: Behavioral Health When: as needed if can not get into a drug program within 1-2 weeks Proposed Discharge Date: 07/12/19
--- NOTE | 2019-07-12 09:24 | CASEMGMT ---
Pt is to be discharged today. SW spoke w/pt, explained that SW did not hear back from [facility]. SW gave pt lists of both psychiatrists and psychiatric nurse practitioners that take pt's insurance. SW also gave pt information on other mental health programs in the area, including Behavioral Health. Pt then informed SW that the range technician came in yesterday and called an inpt program in [place], and is going to follow up with them today. Pt states if they will take pt's service dog, he will go. He states that that range technician is to follow up w/pt today. SW encouraged pt to still go to [facility] today and they can also follow up w/the program to see if they will take him w/his dog. Pt is not certain which program it is but has a list with a couple of highlighted places. SW encouraged pt to follow up w/the highlighted places and/or have [facility] do so. Pt states understanding. No further needs, pt to go to [facility] today and possibly go to an inpt rehab if they will take his service dog along with him, pt is to follow up on this. LAVERN Shipman
[2019-07-12 09:53] VITALS: BP 137/80; PULSE 85; RESP 14; TEMP 36.6; O2SAT 97
--- NOTE | 2019-07-12 09:53 | PCM.DC.SUM ---
Discharge Date and Diagnosis - Problem List Patient Problems: Active and Suspected Problems Opiate overdose (Acute) Aspiration pneumonia (Acute) Dog bite (Acute) Hepatitis C antibody positive in blood (Acute) Date of Admission: 07/07/19 Date of Discharge: 07/12/19 - Primary Discharge Diagnosis Active and Suspected Problems Opiate overdose (Acute) Aspiration pneumonia (Acute) Lactic acidosis (Acute) Dog bite (Acute) Hepatitis C antibody positive in blood (Acute) - Secondary Discharge Diagnosis Chronic Problems Insomnia (Chronic) Anxiety and depression (Chronic) Polysubstance (including opioids) dependence with physiologic dependence (Chronic) Hospital Course and Treatment Imaging Results: Clinical Impression(s) from Imaging Studies Chest X-Ray 07/07/19 14:05 IMPRESSION: Multilobar mixed infiltrates suggesting pulmonary edema or pneumonia. Electronically Signed: Tacho Arzola MD (Brooks) at 14:56 EDT , Service support , Brain CT 07/07/19 14:10 IMPRESSION: No acute intracranial hemorrhage or mass effect. Electronically Signed: Tacho Arzola MD (Brooks) at 14:59 EDT , Service support , Chest X-Ray 07/07/19 18:00 IMPRESSION: 1. Endotracheal tube less than 1 cm from the dimas, consider partial retraction 2. Presumably normal position of gastric drainage tube, attention to position is advised on the next image. 3. Severe diffuse lung disease, likely noncardiogenic pulmonary edema/acute alveolar injury. Consider inhalational injury versus pneumonia. Electronically Signed: Hyacinth Dumont, at 18:34 EDT Tel , Service support , Chest X-Ray 07/08/19 05:55 IMPRESSION: Moderate favorable change. Partial clearing of bilateral airspace disease. Electronically Signed: Tacho Arzola MD (Brooks) at 12:14 EDT , Service support , Hand X-Ray 07/10/19 11:10 IMPRESSION: Healed boxer type fracture with evidence of overlying soft tissue swelling. Electronically Signed: Govind Gamez, at 14:11 EDT , Service support , Microbiology 07/07/19 14:15 Blood Culture (Wb) - Anticubital Left Blood Culture - Preliminary No growth in 48 hours. 07/07/19 14:10 Blood Culture (Wb) - Anticubital Right Blood Culture - Preliminary No growth in 48 hours. 07/10/19 22:50 Stool C. difficile DNA Amplification - Final 07/08/19 00:45 Sputum, Induced/Lukens Gram Stain - Final 07/08/19 00:45 Sputum, Induced/Lukens Respiratory Culture - Final Mixed normal respiratory danae. No Streptococcus pneumoniae, beta-hemolytic Streptococcus or Staphylococcus aureus isolated. 07/07/19 15:55 Urine, Clean Catch Urine Culture - Final Culture exhibits no growth. 07/08/19 10:20 Urine Catheter - [place] Streptococcus pneumoniae Antigen (M - Final 07/08/19 10:20 Urine Catheter - [place] Legionella Antigen - Final Dr. Andrea Roth-concrete mixer Operations: None Procedures: 2-D Echocardiogram - Interpretation Summary Normal LV size. Left ventricular systolic function is normal. The estimated ejection fraction is 55 %. Normal diastology for age. Structurally normal valves. Summary of Care Provided: The patient is a 29-year-old male with a past medical history of polysubstance abuse and nicotine dependence who was admitted to [facility] on 07/07/2019 with a diagnosis of narcotic overdose from snorting Heroin and Fentanyl. He had been seen in the ED in the preceding 2 days with multiple dog bites on the RUE and was prescribed Augmentin. Vital signs at presentation to the emergency room were temperature 95.8, heart rate 129, blood pressure 143/94, respiratory rate 30 and the pulse ox on room air was 59%. White blood cell count was elevated at 20.2 with a left shift. Hemoglobin was 16.2 and platelets were within normal limits. And ABG showed a pH of 7.12, PCO2 of 65 and a PO2 of 112 on BiPAP at 18/8 with 100% FiO2. Lactic acid was elevated at 7.2. LFTs were unremarkable. Troponin was less than 0.015. UA had 25-50 WBCs per high-power field. Drug screen was positive for opiates and cannabinoids. MRSA nasal screen was positive. Chest x-ray showed multilobar diffuse infiltrates. Admit orders were placed and while the patient was being transferred from the emergency department he began to vomit blood and likely aspirated. He was taken back to the emergency department and intubated and subsequently transferred to ICU. He was admitted to the intensive care unit with a diagnosis of severe sepsis secondary to multilobar pneumonia with acute respiratory failure with hypoxia and hypercapnea. He was continued on Zosyn that was started in the emergency department. Vancomycin was added when the MRSA nasal swab came back +. He was administered Propofol for sedation. Blood cultures had no growth in 5 days. A urine culture exhibited no growth. Urine for chlamydia and GC was negative. The sputum grew normal respiratory danae. Legionella and streptococcal antigens in the urine were negative. On 07/09/2019 he was transitioned from propofol to Precedex to facilitate extubation the following morning. The spontaneous breathing trial on 07/10/2019 went well and he was extubated on 07/10/2019. Post extubation he was groggy but was able to maintain an appropriate oxygen saturation with nasal O2. PT and OT were initiated. Zosyn and vancomycin were continued. On 07/11/2019 he was much more alert and appropriate. He was not confused and he was able to make good eye contact. He expressed interest in an inpatient drug rehab program and this was also discussed with his mother who is very supportive. The patient agreed to remain in the hospital 1 more day so that his mother could drive him to [address] for an evaluation for inpatient drug rehab on 07/12/2019. On 07/12 he was afebrile with stable vital signs. Pulse ox on room air was 97 to 99%. He had a rare cough. He had been started on Sertraline and Buspar and was tolerating these medications well. He has insomnia and he was started on Seroquel 50 mg At HS. He seems to have anxiety and depressions as well as social anxiety. He also is a little slow and I am curious if he has ever had a TBI in the past or if he is on the autism spectrum. He was discharged home and hopefully will allow his mother to drive him directly to [address]. Pastor Sutherland assisted the pt in calling various rehab facilities on the to see if he could go to a facility that would also accommodate his service dog. I feel it is imperative to get the mental illness controlled if he is going to have any director long term care success staying clean and sober. HIV was negative but the hep C antibody has turned + since it was last checked in 2017. The hep C genotype and the quantitative viral RNA are still pending at the time of DC. He was advised that if he can stay clean for 6 months he would be a candidate for treatment of hep C to prevent developing cirrhosis down the line. He was discharged home on Augmentin and Doxycycline....5 doses of each to complete 7 days of tx for aspiration PNA/pneumonitis. PHYSICAL EXAM: GENERAL: alert, oriented X 3, Cooperative, NAD, the abrasions on the face have healed. ORAL: moist mucosa, no mucosal lesions NECK: No JVD, supple, trachea midline LUNGS: CTA, symmetric chest expansion HEART: RRR, Normal S1 and S2, no rub, no gallop ABDOMEN: soft, NT, ND, BS present, no guarding with palpation EXTREMITIES: no edema, no cyanosis, no calf tenderness, the swelling of the R hand and the puncture wounds on the RUE are better and there is no evidenc of infection at the time of DC. XRAY of the R hand revealed no fractures. SKIN: No rashes, no breakdown NEUROLOGIC: no focal neurologic deficits PSYCH: appropriate, normal affect, pleasant This note was generated with [employer] dictation software. It may contain incorrect words, spelling, and punctuation that were not noted in checking the note before signing. Patient Problems: Active and Suspected Problems Opiate overdose (Acute) Aspiration pneumonia (Acute) Dog bite (Acute) Hepatitis C antibody positive in blood (Acute) - Physical Exam Vitals/I&O's: Vital Signs Temp Pulse Resp BP Pulse Ox 98 F 85 27 H 137/80 H 97 07/12/19 08:39 07/12/19 08:39 07/12/19 08:39 07/12/19 08:39 07/12/19 08:39 Oxygen Flow Rate (L/min) 2 Oxygen Delivery Method Room Air Weight: 158 lb 11.725 oz Body Mass Index (BMI) 22.4 Intake and Output for Last 24 Hours 07/10/19 07/11/19 07/12/19 23:59 23:59 23:59 Intake Total 2792.11 / 2792.11 1787.50 / 1787.50 1000 / 1000 Output Total 2200 / 2200 2050 / 3200 2250 / 2250 Balance 592.11 / 592.11 -262.50 / -1412.50 -1250 / -1250 Microbiology Past 72 Hours 07/07/19 14:15 Blood Culture (Wb) - Anticubital Left Blood Culture - Preliminary No growth in 48 hours. 07/07/19 14:10 Blood Culture (Wb) - Anticubital Right Blood Culture - Preliminary No growth in 48 hours. 07/10/19 22:50 Stool C. difficile DNA Amplification - Final 07/08/19 00:45 Sputum, Induced/Lukens Gram Stain - Final 07/08/19 00:45 Sputum, Induced/Lukens Respiratory Culture - Final Mixed normal respiratory danae. No Streptococcus pneumoniae, beta-hemolytic Streptococcus or Staphylococcus aureus isolated. 07/07/19 15:55 Urine, Clean Catch Urine Culture - Final Culture exhibits no growth. Laboratory Results 07/11/19 : HCV RNA Quant (PCR) Pending, Hepatitis C Genotype Pending Current Medications Acetaminophen (Tylenol) 1,000 mg PO Q6H PRN PRN PRN Reason: Pain Score 1-3/10,Temp>100.5F Albuterol Sulfate (Ventolin Aerosols) 2.5 mg INHALATION Q2H PRN PRN PRN Reason: SOB/Wheezing Last Admin: 07/11/19 03:30 Dose: 2.5 mg Documented by: Albuterol/Ipratropium (Duoneb) 3 ml INHALATION Q6H.RT [facility] Last Admin: 07/12/19 06:58 Dose: 3 ml Documented by: Amoxicillin/Clavulanate Potassium (Augmentin Tablet) 875 mg PO BID [facility] Last Admin: 07/12/19 08:46 Dose: 875 mg Documented by: Buspirone HCl (Buspar) 5 mg PO TID [facility] Last Admin: 07/12/19 06:09 Dose: 5 mg Documented by: Doxycycline Monohydrate (Doxycycline) 100 mg PO BID [facility] Last Admin: 07/12/19 08:45 Dose: 100 mg Documented by: Famotidine (Pepcid) 20 mg PO BID [facility] Last Admin: 07/12/19 08:46 Dose: 20 mg Documented by: Hydroxyzine Pamoate (Vistaril Pamoate Capsule) 50 mg PO TID PRN PRN PRN Reason: ANXIETY Last Admin: 07/12/19 01:32 Dose: 50 mg Documented by: Ibuprofen (Motrin) 400 mg PO Q6H PRN PRN PRN Reason: Pain Score 4-5/10 Magnesium Hydroxide (Milk Of Magnesia) 30 ml PO DAILY PRN PRN PRN Reason: Constipation Ondansetron HCl (Zofran) 4 mg IV Q8H PRN PRN PRN Reason: NAUSEA/VOMITING Quetiapine Fumarate (Seroquel) 50 mg PO QHS [facility] Last Admin: 07/11/19 21:04 Dose: 50 mg Documented by: Sertraline HCl (Zoloft) 50 mg PO DAILY [facility] Last Admin: 07/12/19 08:46 Dose: 50 mg Documented by: Sodium Chloride () 5 - 15 ml IV UD PRN PRN Reason: SALINE FLUSH Last Admin: 07/11/19 21:08 Dose: 15 ml Documented by: Throat Lozenges (Cepacol Sore Throat Lozenge) 1 lozenge MUCOUS MEM Q2H PRN PRN PRN Reason: SORE THROAT Discharge Activity: Return to Normal Activity Call your doctor if you observe: Fever of 101 or Higher, Inability to have a bowel movement, Shortness of breath, Dizziness, Fainting spells, Swelling in the ankles, Chest pain, - - Call your PCP if severe diarrhea ( > 5 stools a day), painful sores in the mouth, painful swallowing, rash or itching. Taking a probiotic such as Lactobacillus or Kefir can help with loose stools while taking antibiotics. Home Medications: Medications to take at Discharge Amoxicillin/Potassium Clav [Augmentin 875-125 Tablet] 1 ea PO BID #20 tab 07/06/19 Ibuprofen 600 mg PO 4X/DAY PRN #20 tab 07/06/19 Amox/Clavulanate Tablet [Augmentin Tablet] 875 mg PO BID #5 tab 07/12/19 Doxycycline 100 mg PO BID #5 cap 07/12/19 Quetiapine Fumarate [Seroquel] 50 mg PO QHS #30 tab 07/12/19 Sertraline HCl [Zoloft] 50 mg PO DAILY #30 tab 07/12/19 busPIRone [Buspar] 5 mg PO TID #90 tab 07/12/19 Following Prescrptions Were Given to Patient: Amox/Clavulanate Tablet [Augmentin Tablet] 875 mg PO BID #5 tab Transmission Status: Received by [facility] busPIRone [Buspar] 5 mg PO TID #90 tab Transmission Status: Received by [facility] Doxycycline 100 mg PO BID #5 cap Transmission Status: Received by [facility] Quetiapine Fumarate [Seroquel] 50 mg PO QHS #30 tab Transmission Status: Received by [facility] Sertraline HCl [Zoloft] 50 mg PO DAILY #30 tab Transmission Status: Received by [facility] Primary Care Physician: Care Physician,No Primary [Primary Care Provider] - Please Follow Up With: Behavioral Health When: as needed if can not get into a drug program within 1-2 weeks Disposition: Home Minutes spent on discharge:: 35 Patient Condition:: Stable Medical Necessity - Tobacco Use Smoking Status: Current every day smoker Tobacco Use: Cigarettes Meaningful Use Info Meaningful Use Diagnoses (Choose all that apply): None applicable Code Visit Inpatient E&M: 48741 Disch Hosp
[2019-07-13 02:37] LABS: Rapid Plasmin Reagin (RPR) NONREACTIVE (NONREACTIVE)
[2019-07-14 20:07] LABS: Comment 1a (.); HCV Quant. RNA PCR 432000 IU/mL (.)
[2019-07-16 10:32] LABS: HCV log 10 5.635 (.); Hepatitis C Genotype 1a
== END 2019-07-12 10:15 | disposition home or self-care (01) | DRG 816 ==
LOC: ED 15:21 → ICU 15:54
PROVIDERS: Internal Medicine Critical Care Medicine; Admitting Provider Internal Medicine; Emergency Provider Emergency Medicine; Referring Provider Internal Medicine; Visit Provider Internal Medicine
DX: T40.1X1A Poisoning by heroin, accidental (unintentional), initial encounter (principal); J96.01 Acute respiratory failure with hypoxia; F17.210 Nicotine dependence, cigarettes, uncomplicated; J69.0 Pneumonitis due to inhalation of food and vomit; G92 Toxic encephalopathy; T40.4X1A Poisoning by other synthetic narcotics, accidental (unintentional), initial encounter; J96.02 Acute respiratory failure with hypercapnia; E87.6 Hypokalemia; S61.452A Open bite of left hand, initial encounter; W54.0XXA Bitten by dog, initial encounter; E87.2 Acidosis; F32.9 Major depressive disorder, single episode, unspecified; G47.00 Insomnia, unspecified; F41.9 Anxiety disorder, unspecified; F19.20 Other psychoactive substance dependence, uncomplicated
CPT/HCPCS: 31500; 31720; 36600; 70450; 71045; 73090; 73130; 80048; 80053; 80202; 80307; 80320; 81001; 82550; 82803; 83036; 83605; 83735; 83880; 84075; 84478; 84484; 85025; 85610; 85730; 86592; 86703; 86704; 86705; 86706; 86708; 86709; 86803; 87040; 87070; 87086; 87205; 87340; 87449; 87491; 87493; 87522; 87591; 87641; 87902; 90471; 90675; 90715; 93005; 93306; 94002; 94003; 94640; 96372; 97116; 97161; 97166; 97530; 97535; 97802; 97803; 99251; 99283; 99285; 99406; J7030; J7040; J7050; Q9957; 90375; A4216; G0463; G0480; J0295; J1940; J3490

== ENCOUNTER 2020-03-13 07:09 | Emergency (ER) | payer MEDICAID, SELFPAY ==
[2020-03-13 07:09] VITALS: BMI 24.7
[2020-03-13 07:11] VITALS: BP 132/84; PULSE 139; RESP 14; TEMP 36.8; O2SAT 99; BMI 27.8
--- NOTE | 2020-03-13 07:20 | EKG12_ITS ---
Test Reason : LOWER EXTR Blood Pressure : / mmHG Vent. Rate : 133 BPM Atrial Rate : 133 BPM P-R Int : 134 ms QRS Dur : 086 ms QT Int : 298 ms P-R-T Axes : 055 077 052 degrees QTc Int : 443 ms Sinus tachycardia Otherwise normal ECG Confirmed by ANGI CARROLL ([id number]), greeting card editor MARYLIN REA ([id number]) on 03/20/2020 12:02:28 PM Referred By: DC Confirmed By:ANGI CARROLL
--- NOTE | 2020-03-13 07:31 | ED.DCSUM_ITS ---
- ER Visit Summary Date of Service: 03/13/20 Chief Complaint: Cannot use legs History of Present Illness: The patient is a 29 M with a history of opioid abuse, aspiration pneumonia, hepatitis C, hypokalemia, encephalopathy, anxiety, depression, and smoking. He was feeling well yesterday. He slept on a couch last night, and had a good night sleep. He woke up this morning and his legs were not working. He says that he is having pain in his back. He said his legs feel weak all over. He has numbness behind his legs and into his feet. He has never had back issues before, surgeries, abscesses. Denies any skin changes or fevers. Denies any recent opioid use or heavy alcohol use that would cause him to be immobile. Denies any history of circulation issues, clots, compartment syndrome. Denies abdominal pain or GI symptoms. Denies any history of aortic disease. Denies trauma. Physical Examination: Afebrile. Tachycardic at 139. Otherwise vitals unremarkable. He is tearful and appears uncomfortable. HEENT exam unremarkable. Heart is tachycardic but regular. Lungs are clear. Abdomen is soft and nontender. Back is diffusely tender, more so over the upper lumbar spine. The overlying skin appears normal. He is able to move all muscle groups in his lower extremities bilaterally, but has generalized weakness. I suspect this is from effort. His strength is symmetric. Range of motion intact. No deformities. Pulses are equal bilaterally. Skin appears unremarkable. He does report subjective decreased sensation behind his legs and into his feet. Reflexes, Babinski, clonus normal, but limited by patient cooperation. He does have some tenderness in his left quad but overall his compartments are soft. Test Results: Check an EKG because he is tachycardic. Also check CBC, CMP, magnesium, CPK, ESR, CRP, coags, alcohol, tox. We will start with plain films of his lumbar spine, but may need to order advanced imaging if his condition changes or if we identify other concerning findings. Emergency Department Course and Treatment: Patient was placed on the monitor. N.p.o. Treated with IV fluids. Work-up, as above, pending. Patient's work-up showed a white count of 15.9. Metabolic panel and coags unremarkable. CPK 2956. ESR normal. CRP 11.8. Alcohol negative. Magnesium 2.9. Tox screen pending. X-ray showed dextroscoliosis but nothing acute. Given his symptoms and his a bnormal labs, MRI was ordered. This showed bilateral paraspinal muscle myositis. Patient was started on Zosyn and vancomycin. Blood cultures were obtained. He is stable on reevaluation. He has required Zofran and fentanyl. He has had 3 L of IV fluids. Bolus is still in progress. Patient will need care at a tertiary care center. He requested [facility]. The patient was accepted by Dr. Archer. Treatment Plan: As above Disposition: Transfer Impression: Lumbar muscle myositis, rhabdomyolysis, history of IV drug abuse This note was generated with [employer] dictation software. It may contain incorrect words, spelling, and punctuation that were not noted in review of the chart prior to signing ED Disposition - Plan for ED Patient: Referrals: Care Physician,No Primary [NON-STAFF] -
[2020-03-13] MEDS: 0.9% Normal Saline 1,000 ML 1000 ML IV (07:36)
[2020-03-13 07:42] LABS: Erythrocyte Sedimentation Rate 6 mm/hr (0-15)
--- NOTE | 2020-03-13 07:42 | RAD_ITS ---
STUDY: X-RAY - LUMBAR SPINE REASON FOR EXAM: Male, 29 years old. Back pain with left sided weakness. TECHNIQUE: 3 view(s) of the lumbar spine were obtained. COMPARISON: None FINDINGS: Normal lumbar lordosis. There is a mild dextroscoliosis. There is a normal alignment of the vertebrae. Normal vertebral bodies and endplates. Normal disc space heights. The soft tissue structures are unremarkable. RAD/Lumbar Spine 2 or 3 Views IMPRESSION: Mild dextroscoliosis, no demonstrated fracture or suspicious osseous lesion Electronically Signed: Luciano Weston MD at 7:58 EDT , Service support ,
[2020-03-13 07:44] LABS: Absolute Lymphocyte Count 0.54 X10^3/uL (0.83-4.51); Absolute Neutrophil Count 13.4 X10^3/uL (2.0-7.7); Basophil# 0.01 X10^3/uL; Basophil% 0.1 % (0-1); Hematocrit 53.5 % (40-54); Hemoglobin 17.2 g/dL (13.0-16.5); Lymphocyte # 0.54 X10^3/ul (4.0); Lymphocyte % 3.4 % (19-41); Mean Corp Hgb Conc 32.1 g/dL (32-36); Mean Corpuscular Volume 96.4 fL (80-94); Mean Platelet Vol. 9.7 fl (6.2-12.0); Monocyte# 1.87 X10^3/uL; Monocyte% 11.8 % (0-10); NRBC Flagged by Analyzer 0 % (0-5); Neutrophil # 13.39 X10^3/uL (2.7-7.7); Neutrophil % 84.1 % (47-70); POSITIVE DIFFERENTIAL YES; Platelet Count 272 K/mm3 (150-450); RBC Distribution Width CV 13.6 % (11.6-14.6); RBC Distribution Width SD 48.3 fl (35.1-43.9); Red Blood Count 5.55 M/mm3 (4.6-6.2); White Blood Count 15.9 K/mm3 (4.4-11.0)
[2020-03-13 07:45] LABS: Differential Indicated SCAN CRITERIA MET
[2020-03-13 08:05] LABS: Prothrombin Time (Protime)PT. 12.3 SECONDS (11.7-14.9)
[2020-03-13 08:06] LABS: Partial Thromboplast Time 26.1 Seconds (24.1-36.2)
[2020-03-13 08:16] LABS: ALB/GLOB Ratio 1.2 RATIO (0.9-2.4); AST(SGOT) 59 U/L (15-37); Alanine Aminotransfer ALT/SGPT 66 U/L (16-61); Alkaline Phosphatase 101 U/L (45-117); Anion Gap 7 (5-15); BUN 15 mg/dL (7-18); BUN/Creat Ratio 13.4 RATIO (10-20); CPK Total, Creatine Kinase 2956 U/L (39-308); Calcium,Total 9.3 mg/dL (8.5-10.1); Chloride 100 mmol/L (98-107); Creatinine, Serum 1.12 mg/dL (0.70-1.30); EST Glomerular Filtration Rate 81 mL/min (>60); Est Glom Filt Rate - Afr Amer 99 mL/min (>60); Estimated Creatinine Clearance 90.17 ml/min; Globulin 4.3 g/dL (2.2-4.2); Glucose 110 mg/dL (74-106); Magnesium 2.9 mg/dL (1.6-2.6); Potassium 4.6 mmol/L (3.5-5.1); Protein, Total 9.3 g/dL (6.4-8.2); Sodium Level 135 mmol/L (136-145)
--- NOTE | 2020-03-13 08:20 | MRI_ITS ---
We are attempting to reach an attending provider to discuss findings. An addendum with communication details will be sent when the communication is complete. STUDY: MRI LUMBAR SPINE WITH AND WITHOUT CONTRAST REASON FOR EXAM: Male, 29 years old. Numbness in legs, weaness bilat, unable to walk, known IV drug user TECHNIQUE: Standardized fat and water weighted pulse sequences were obtained in the sagittal and axial planes. IV yes yes was administered for the contrast portion of the examination. COMPARISON: X-ray dated March 13, 2020. FINDINGS: Dextroscoliosis. Exaggerated lumbar lordosis. Conus medullaris terminates normally at the L1 level. Bilateral paraspinal muscle edema with enhancement. No discrete rim-enhancing fluid collections. No acute fracture. No acute dislocation. No acute cortical destruction. Nonspecific distended urinary bladder. T10-11: Schmorl''s nodes with mild endplate spondylosis. T12-L1: Normal endplates. Normal disc height, hydration and morphology. Normal bilateral facet joints. Normal central canal and bilateral lateral recesses. Normal bilateral intervertebral neural foramina. L1-2: Normal endplates. Normal disc height, hydration and morphology. Normal bilateral facet joints. Normal central canal and bilateral lateral recesses. Normal bilateral intervertebral neural foramina. L2-3: Normal endplates. Normal disc height, hydration and morphology. Normal bilateral facet joints. Normal central canal and bilateral lateral recesses. Normal bilateral intervertebral neural foramina. L3-4: Normal endplates. Normal disc height, hydration and morphology. Normal bilateral facet joints. Normal central canal and bilateral lateral recesses. Normal bilateral intervertebral neural foramina. L4-5: Normal endplates. Central disc protrusion, annular fissure, with mild/moderate central canal narrowing. Normal bilateral facet joints. Bilateral lateral recess narrowing with contact of the left descending L5 nerve root. Neural foraminal narrowing without impingement. L5-S1: Normal endplates. Mild disc desiccation. Normal bilateral facet joints. Normal central canal and bilateral lateral recesses. Neural foraminal narrowing without impingement. MRI/Spine Lumbar W/WO Contrast IMPRESSION: Bilateral paraspinal muscle edema and enhancement without discrete abscess/drainable collection (suspected acute infectious myositis; correlate blood cultures and WBC) L4-5 disc protrusion with mild/moderate central canal narrowing L4-5 bilateral lateral recess narrowing with impingement of the left descending L5 nerve root L4-5, L5-S1 neural foraminal narrowing without impingement Dextroscoliosis and lumbar lordosis Nonspecific distended urinary bladder (correlate coating) Electronically Signed: Herbie Murray DO at 10:10 EDT Tel , Service support ,
[2020-03-13] MEDS: fentaNYL 100 MCG/2 ML Ampul 50 MCG IV (10:00)
[2020-03-13] MEDS: Ondansetron 4 MG/2 ML Vial IV (10:00)
[2020-03-13 10:05] VITALS: BP 127/92; PULSE 141; RESP 18; O2SAT 99
[2020-03-13 10:42] LABS: Amphetamine Urine VISTA POSITIVE (<1000 ng/mL); Barbiturate Urine VISTA NEGATIVE (< 200 ng/mL); Benzodiazepine Urine VISTA POSITIVE (< 200 ng/mL); Cocaine Urine VISTA NEGATIVE (< 300 ng/mL); Ecstacy Urine VISTA POSITIVE (< 500 ng/mL); Methadone Urine VISTA NEGATIVE (< 300 ng/mL); PCP Urine VISTA NEGATIVE (< 25 ng/mL); THC Urine VISTA POSITIVE (< 50 ng/mL); Vista UDS pH Range 6
[2020-03-13] MEDS: 0.9% Normal Saline 1,000 ML 999 ML IV (10:46)
--- NOTE | 2020-03-13 11:28 | ED.RN ---
PT REQUESTING A COLD WASH CLOTH AND A URINAL AT THIS TIME
[2020-03-13 12:20] VITALS: BP 119/83; PULSE 131; RESP 20; O2SAT 97
--- NOTE | 2020-03-13 12:21 | ED.RN ---
WAITING ON BED ASSIGNMENT
--- NOTE | 2020-03-13 13:41 | CHAPLAIN ---
Type of Pastoral Visit _x__ Initial Visit ___ Follow-up Visit ___ On-call Visit ___ General Patient Visit ___ Spiritual Assessment ___ Family Conference ___ Bereavement ___ Rapid Response ___ Code Blue ___ Other (describe below) Pastoral Care Referral From _x__ Patient ___ Family ___ Nurse ___ Physician ___ Hose Mender ___ Production Aide ___ Other (describe below) Sacrament/Intervention _x__ Active listening ___ Anointing ___ Jew ___ Bereavement ___ Communion ___ Sara exploration ___ ___ Life review _x__ Prayer ___ Reconciliation ___ Sacrament of Sick _x__ Supportive presence ___ Wedding ___ Other (describe below) Pastoral Comments this patient has been seen by this tuber machine cutter in several previous admissions; pt has displayed trust in tuber machine cutter in past; pt admits to relapsing into drugs again in recent months; pt speaks I'm really scared; this tuber machine cutter gave calm presence, prayer, and words for hope; pt has slate handler dog and pups at home to which he is emotionally attached but pt states right now I am only worried about me; pt welcomes spiritual care support now and in future; pt believes he is waiting for transport out into another hospital
[2020-03-13 13:52] VITALS: BP 128/94; PULSE 114; RESP 18; TEMP 36.8; O2SAT 100
[2020-03-13] MEDS: LORazepam 2 MG/ML Syringe 1 MG IV (13:59)
[2020-03-13 14:00] VITALS: BP 123/82; PULSE 125; RESP 17; O2SAT 98
[2020-03-14 11:01] LABS: Pathologist Review Reviewed
== END 2020-03-13 14:58 | disposition short-term general hospital (02) ==
PROVIDERS: Emergency Provider Emergency Medicine; PCP Family Medicine
DX: M60.88 Other myositis, other site (principal); M62.82 Rhabdomyolysis; F19.10 Other psychoactive substance abuse, uncomplicated; F32.9 Major depressive disorder, single episode, unspecified; F41.9 Anxiety disorder, unspecified; Z86.19 Personal history of other infectious and parasitic diseases; Z72.0 Tobacco use
CPT/HCPCS: 72100; 72158; 80053; 80307; 80320; 82550; 83735; 85025; 85610; 85652; 85730; 86140; 87040; 93005; 96361; 96365; 96367; 96375; 99285; A9575; J7030; J7050; A4216; G0480; J2405

== ENCOUNTER → 2020-03-27 11:54 | Outpatient (CLI) | payer MEDICAID, SELFPAY ==
[2020-03-13 07:11] VITALS: BMI 27.8
== END ==
PROVIDERS: PCP Family Medicine; Visit Provider Registered Nurse
DX: Z20.828 Contact with and (suspected) exposure to other viral communicable diseases (principal)
CPT/HCPCS: 87635; C9803; G2023; U0003

== ENCOUNTER 2020-05-09 18:02 | Emergency (ER) | payer MEDICAID, SELFPAY ==
[2020-05-09 18:04] VITALS: BP 143/64; PULSE 138; RESP 18; TEMP 36.9; O2SAT 79; BMI 26.4
--- NOTE | 2020-05-09 18:06 | ED.RN ---
PT PULSE OX 72% ON ARRIVAL FROM EMS WITH A GOOD WAVE FORM. CHECKED THE OTHER HAND, 73% WITH A GOOD WAVEFORM. PT PLACED ON A NRB. DR CHAN CALLED TO THE ROOM.
[2020-05-09 18:08] VITALS: O2SAT 82
[2020-05-09] MEDS: Naloxone 2 MG/2 ML Syringe IV (18:11)
--- NOTE | 2020-05-09 18:11 | ED.DCSUM_ITS ---
- ER Visit Summary Date of Service: 05/09/20 Chief Complaint: [Drug overdose] History of Present Illness: The patient is a 29 M [presents to the emergency department via EMS after sustaining a drug overdose of heroin. It is believed that the patient's mother called the squad when he was unresponsive and on EMS arrival patient unresponsive and had agonal respirations. Patient was given 6 mg of intranasal Narcan. On arrival patient is awake and alert and answering questions and following commands. Patient admits to using heroin. He denies any complaints other than being cold. He denies alcohol use or tobacco use. He has no medical history. Patient denies being suicidal or homicidal.] Physical Examination: [HEENT-PERRLA, EOMI. Cranial nerves II through XII grossly intact. TMs clear. Mucous membranes moist. No adenopathy. Cardiovascular-regular and tachycardic with a heart rate in the 120s. Lungs-clear to auscultation, chest wall stable without crepitus or subcu emphysema Abdomen-normoactive bowel sounds, soft, nontender, no rebound or rigidity, no peritoneal signs. Extremities-intact ?4, normal range of motion, normal pulses, atraumatic] Test Results: [None indicated] Emergency Department Course and Treatment: [On arrival patient still somewhat somnolent and there was concern about a low pulse ox therefore I did give patient 2 mg of Narcan IV. Patient was observed in the department for about an hour and a half and at this time he has no complaints and is asking to go home. Patient states he feels well. Patient able to maintain O2 saturation without supplemental oxygen.] Treatment Plan: [Patient advised to discontinue illicit drug use and follow-up with 180.] Disposition: [Discharged home in stable condition] Impression: [Accidental heroin overdose] This note was generated with [employer] software. It may contain incorrect words, spelling, and punctuation that were not noted in review of the chart prior to signing ED Disposition - Plan for ED Patient: Referrals: Ruslan Diamond MD [Primary Care Provider] -
[2020-05-09 18:22] VITALS: BP 159/91; PULSE 112; RESP 24; O2SAT 100
[2020-05-09 18:34] VITALS: BP 138/79; PULSE 115; RESP 30; O2SAT 100
[2020-05-09 19:09] VITALS: BP 130/87; PULSE 110; RESP 14; O2SAT 98
--- NOTE | 2020-05-09 19:25 | ED.DEP ---
ED Disposition - Plan for ED Patient: Instructions: ED Abuse Narcotic, ED Overdose Opiate Referrals: Ruslan Diamond MD [Primary Care Provider] - As Needed Additional Instructions: follow up with 180 if you want help for opiate addiction
[2020-05-09 19:37] VITALS: BP 128/87; PULSE 112; RESP 20; O2SAT 92
== END 2020-05-09 19:49 | disposition home or self-care (01) ==
LOC: ED 18:38
PROVIDERS: Emergency Provider Emergency Medicine; PCP Family Medicine
DX: T40.1X1A Poisoning by heroin, accidental (unintentional), initial encounter (principal); Y92.9 Unspecified place or not applicable
CPT/HCPCS: 96374; 99285; J7030; A4216

== ENCOUNTER 2020-10-09 13:37 | Inpatient (IN) | payer MEDICAID, SELFPAY ==
[2020-10-09 13:37] VITALS: BP 132/86; PULSE 79; RESP 18; TEMP 36.9; O2SAT 97; BMI 26.4
--- NOTE | 2020-10-09 13:53 | ED.DCSUM_ITS ---
- ER Visit Summary Date of Service: 10/09/20 Chief Complaint: Requesting detox for heroin abuse History of Present Illness: The patient is a 30 M history of drug abuse for last 8 years. Denies having any type of detox in the last several years. Denies any illness. Says he snorts heroin but does not do IV drugs. Denies any medical complaints. Physical Examination: Young male no acute distress vital signs stable afebrile. HEENT exam unremarkable. Neck nontender. Lungs clear to auscultation bilaterally. Heart regular rhythm no murmur. Abdomen soft nontender normal bowel sounds no peritoneal signs. Extremities moves all 4. Calves nontender without edema or cords. Back nontender. Neurologically is awake alert with no focal motor deficits. Test Results: None Emergency Department Course and Treatment: Neuro requesting inpatient detox for heroin abuse. Hospitalist on page. Treatment Plan: [] Disposition: Admit for detox for heroin abuse Impression: Requesting detox for heroin abuse History of drug abuse This note was generated with [employer] dictation software. It may contain incorrect words, spelling, and punctuation that were not noted in review of the chart prior to signing ED Disposition - Plan for ED Patient: Referrals: Ruslan Diamond MD [Primary Care Provider] -
--- NOTE | 2020-10-09 14:08 | HP.PCM_ITS ---
Problem List (1) Anxiety and depression Status: Chronic (2) Hepatitis C antibody positive in blood Status: Chronic (3) Nicotine abuse Status: Chronic (4) Acute opioid withdrawal Status: Acute History of Present Illness Date of Admission: 10/09/20 Chief Complaint: Acute opioid withdrawal The patient is a 30 year old M with past medical history of chronic hepatitis C, not on treatment, polysubstance use, daily heroin user who comes in with feeling hot and cold, generalized weakness and aches, abdominal discomfort, nausea no v omiting or diarrhea. Patient has been using 2 g of heroin since the last 13 years. He was recently admitted and discharged in June 2019 after medical stabilization. He remained sober for 8 months. He has since relapsed. He stated that he cannot continue to live like this and would like to undergo medical stabilization. His vitals in the ED were stable?temperature 98.5 F, heart rate 79, blood pressure 132/86, respiratory rate 18, SPO2 is 97% on room air. His admitting blood work showed WBC count of 9.0, hemoglobin 16.4, platelet count 253, CMP was unremarkable. Urine tox was pending at time of admission Past Medical History Past Medical History (Chronic Problems): Chronic Problems Insomnia (Chronic) Anxiety and depression (Chronic) Hepatitis C antibody positive in blood (Chronic) Polysubstance (including opioids) dependence with physiol dependence (Chronic) Nicotine abuse (Chronic) Allergies No Known Allergies Allergy (Verified 10/09/20 13:37) Home Medications: Ambulatory Orders Medication Instructions Recorded Clonazepam [Klonopin] 0.5 mg PO BID PRN PRN 03/13/20 Quetiapine Fumarate [Seroquel] 150 mg PO QHS 10/09/20 Sertraline HCl [Zoloft] 200 mg PO DAILY 10/09/20 Surgical History: no surgical history Psychiatric History: No pertinent psych hx Lives: With Family Smoking Status: Current every day smoker Tobacco Use: Cigars Alcohol: None - About 5 cigarettes a day Drugs: Marijuana - *Family History Maternal History Items: No pertinent history Paternal History Items: - - addiction, father and grandpa alcoholic, uncle heroin. Father also has liver disease, PAD Review of Systems Constitutional: Reports: Chills, Malaise, Weakness, Fatigue. Denies: Anorexia, Fever, Night Sweats, Weight Change Eyes: Denies: Blurred vision, Cataracts, Conjunctivae Inflammation, Pain, Redness, Vision Change HEENT: Denies: Difficulty Hearing, Difficulty Swallowing, Head Aches, Hearing Changes, Sinus Congestion, Sinus Drainage Cardiovascular: Denies: Chest Pain, Claudication, Light Headedness, Orthopnea, Palpitations Respiratory: Denies: Cough, Hemoptysis, Shortness of Breath, Shortness of breath at rest, Shortness of breath upon exertion, Sputum production Gastrointestinal: Denies: Abdominal Pain, Constipation, Hematemesis, Hematochezia, Nausea, Vomiting Genitourinary: Denies: Dysuria, Frequency, Incontinence Musculoskeletal: Denies: Joint Pain, Joint stiffness, Joint swelling, Joint Tenderness Skin: Denies: Rash, Wounds Neurological: Denies: Difficulty swallowing, Focal weakness, Numbness, Tingling Psychiatric: Denies: Anxiety, Depression, Homicidal Ideations, Suicidal Ideations Hematologic/ Lymphatic: Denies: Easy Bruising, Easy Bleeding VTE Information - Inpt Only VTE Present on Admission: No VTE Pharm Prophylaxis ordered?: Yes - Physical Exam Vitals/I&O's: Vital Signs Temp Pulse Resp BP Pulse Ox 98.5 F 79 18 132/86 H 97 10/09/20 13:37 10/09/20 13:37 10/09/20 13:37 10/09/20 13:37 10/09/20 13:37 Oxygen Delivery Method Room Air Weight: 83.756 kg Body Mass Index (BMI) 26.4 General: Alert, Oriented x3, Cooperative, No apparent distress HEENT: Atraumatic, PERRLA, EOMI, Normocephalic Oral: Moist Mucosa Neck: Supple Lungs: Clear to auscultation, Normal air movement Cardiovascular: Regular rate, Regular Rhythm, Normal S1, Normal S2, No murmurs Abdomen: Bowel Sounds Present, Soft, Non Tender, Non-Distended, No Hepato- splenomegaly Extremities: No edema Skin: No rashes Musculoskeletal: No Tenderness to Palpation of Joints or Extremities Lymphatic: No Cervical, Supraclavicular, or Inguinal Adenopathy Neurological: Cranial nerves II-XII grossly intact, Neuro grossly intact Psych/Mental Status: Normal Affect, Appropriate Assessment/Plan All Active Problems Acute opioid withdrawal (Acute) Opiate overdose (Acute) Aspiration pneumonia (Acute) Dog bite (Acute) Toxic encephalopathy (Resolved) Hypokalemia (Resolved) Acute respiratory failure with hypoxia and hypercapnia (Resolved) Lactic acidosis (Acute) 1. Acute opiate withdrawal in a known chronic opioid dependent patient Continue with buprenorphine withdrawal protocol 2. Chronic hepatitis C, not on treatment, LFTs unremarkable 3. Nicotine dependence, patient uses cigars, refused replacement 4. DVT prophylaxis: Low risk; early ambulation recommended Inpatient E&M: 32207 Init Hosp L2
--- NOTE | 2020-10-09 14:15 | CM.ED ---
SOCIAL WORK Informant: Dr. Jim Reason for Consult: Substance Abuse-requesting detox from Heroin Met with patient in room. Introduced role and reason for referral. Patient reports here for detox, last use of heroin was last night. Patient states has been hospitalized in the past due to overdose. Patient discussed desire to stop use. Emotional support and encouragement provided. Education provided on [facility] program. Patient voices no questions or concerns at this time. Call to [facility] Treatment Navigator to update on admission. Plan: Admit to [facility]. Noelle, PROFESSOR OF VOICE, DIRECTOR OF EVENTS
[2020-10-09 14:18] VITALS: BMI 26.5
--- NOTE | 2020-10-09 14:44 | PCS.PANDOC ---
PANDEMIC DOCUMENTATION INITIATED: Date: 10/09/2020 Time: 1500
[2020-10-09 15:01] VITALS: BP 132/86; PULSE 79; RESP 18; TEMP 36.9; O2SAT 97
[2020-10-09 15:09] VITALS: BMI 25.1
[2020-10-09 15:10] LABS: Absolute Neutrophil Count 7.2 X10^3/uL (2.0-7.7); Basophil# 0.04 X10^3/uL; Basophil% 0.4 % (0-1); Eosinophils% 1.1 % (0-5); Hematocrit 49.4 % (40-54); Hemoglobin 16.4 g/dL (13.0-16.5); Lymphocyte % 12.2 % (19-41); Mean Corp Hgb Conc 33.2 g/dL (32-36); Mean Corpuscular Hgb 31.2 pg (27.0-32.0); Mean Corpuscular Volume 93.9 fL (80-94); Mean Platelet Vol. 10.3 fl (6.2-12.0); Monocyte# 0.54 X10^3/uL; NRBC Flagged by Analyzer 0 % (0-5); Neutrophil # 7.22 X10^3/uL (2.7-7.7); Neutrophil % 80.1 % (47-70); Platelet Count 253 K/mm3 (150-450); RBC Distribution Width CV 12.8 % (11.6-14.6); RBC Distribution Width SD 44.2 fl (35.1-43.9); Red Blood Count 5.26 M/mm3 (4.6-6.2)
[2020-10-09 15:20] LABS: ALB/GLOB Ratio 1.1 RATIO (0.9-2.4); AST(SGOT) 21 U/L (15-37); Alanine Aminotransfer ALT/SGPT 48 U/L (16-61); Albumin, Serum 4.2 g/dL (3.2-5.0); Alkaline Phosphatase 75 U/L (45-117); Anion Gap 2 (5-15); BUN 12 mg/dL (7-18); BUN/Creat Ratio 16.5 RATIO (10-20); Calcium,Total 9.5 mg/dL (8.5-10.1); Chloride 109 mmol/L (98-107); Creatinine, Serum 0.73 mg/dL (0.70-1.30); EST Glomerular Filtration Rate 134 mL/min (>60); Est Glom Filt Rate - Afr Amer 162 mL/min (>60); Estimated Creatinine Clearance 151.39 ml/min; Globulin 3.8 g/dL (2.2-4.2); Glucose 94 mg/dL (74-106); POSITIVE COUNT NO; POSITIVE DIFFERENTIAL NO; POSITIVE MORPHOLOGY NO; Potassium 3.8 mmol/L (3.5-5.1); Sodium Level 137 mmol/L (136-145)
[2020-10-09] MEDS: Gabapentin 300 MG Capsule PO (15:44)
[2020-10-09] MEDS: Dicyclomine 10 MG Capsule 20 MG PO (15:44)
[2020-10-09] MEDS: Methocarbamol 750 MG Tablet 1500 MG PO (15:44)
[2020-10-09] MEDS: Buprenorphine HCl 2 MG TAB.SUBL SL (15:45)
[2020-10-09] MEDS: clonazePAM 0.5 MG Tablet PO ×2 (16:11→20:35)
--- NOTE | 2020-10-09 17:12 | CHAPLAIN ---
Type of Pastoral Visit _x__ Initial Visit ___ Follow-up Visit ___ On-call Visit ___ General Patient Visit ___ Spiritual Assessment ___ Family Conference ___ Bereavement ___ Rapid Response ___ Code Blue ___ Other (describe below) Pastoral Care Referral From _x__ Patient ___ Family ___ Nurse ___ Physician ___ Auto Air Conditioning Apprentice ___ Carbon Rod Inserter ___ Other (describe below) Sacrament/Intervention _x__ Active listening ___ Anointing ___ Oriental Orthodox ___ Bereavement ___ Communion _x__ Sara exploration ___ _x__ Life review _x__ Prayer ___ Reconciliation ___ Sacrament of Sick _x__ Supportive presence ___ Wedding ___ Other (describe below) Pastoral Comments patient requested support from this mounter hand; pt has been admitted previously; pt gives long life review, detailed discussion of his current situation, relationships, and his goals for a future life; pt does have support system in place; pt identifies some changes that he has made, will make, and explains his plan; pt seeks spiritual support and prayer; pt reflects on conversations from past and today;
[2020-10-09 18:48] VITALS: BP 137/90; PULSE 91
[2020-10-09] MEDS: Ibuprofen 600 MG Tablet PO (18:52)
[2020-10-09] MEDS: cloNIDine HCl 0.1 MG Tablet PO (18:52)
[2020-10-09] MEDS: Ondansetron 8 MG Tablet PO (18:52)
[2020-10-09 20:18] VITALS: BP 124/78; PULSE 67; RESP 16; TEMP 36.7; O2SAT 97
[2020-10-09] MEDS: hydrOXYzine PAM 25 MG Capsule 50 MG PO (20:34)
[2020-10-09] MEDS: traZODone 100 MG Tablet PO (20:34)
[2020-10-09] MEDS: QUEtiapine 100 MG Tablet 150 MG PO (20:36)
[2020-10-09 22:26] LABS: Amphetamine Urine VISTA NEGATIVE (<1000 ng/mL); Barbiturate Urine VISTA NEGATIVE (< 200 ng/mL); Benzodiazepine Urine VISTA POSITIVE (< 200 ng/mL); Cocaine Urine VISTA NEGATIVE (< 300 ng/mL); Ecstacy Urine VISTA POSITIVE (< 500 ng/mL); Methadone Urine VISTA NEGATIVE (< 300 ng/mL); PCP Urine VISTA NEGATIVE (< 25 ng/mL); THC Urine VISTA POSITIVE (< 50 ng/mL); Vista UDS pH Range 5
[2020-10-10] MEDS: Methocarbamol 750 MG Tablet 1500 MG PO ×3 (00:23→15:52)
[2020-10-10] MEDS: Dicyclomine 10 MG Capsule 20 MG PO ×2 (00:23→07:40)
[2020-10-10] MEDS: Buprenorphine HCl 2 MG TAB.SUBL SL ×3 (00:23→15:53)
[2020-10-10 00:30] VITALS: BP 118/75; PULSE 90; RESP 16; TEMP 36.3; O2SAT 94
[2020-10-10 07:25] VITALS: BP 103/61; PULSE 61; RESP 16; TEMP 37.1; O2SAT 98
[2020-10-10] MEDS: hydrOXYzine PAM 25 MG Capsule 50 MG PO ×2 (07:40→15:52)
[2020-10-10] MEDS: Gabapentin 300 MG Capsule PO ×2 (07:40→15:52)
--- NOTE | 2020-10-10 08:12 | PN_ITS ---
Patient Problems: Active and Suspected Problems Acute opioid withdrawal (Acute) Subjective: Chief complaint: Follow-up after admission for acute opioid withdrawal. Patient seen and examined. No acute events overnight. He is still symptomatic complaining of body aches and pains, restless and anxiety. He complained of abdominal cramps, no diarrhea. His vital signs are stable. - Physical Exam Vitals/I&O's: Vital Signs Temp Pulse Resp BP Pulse Ox 98.8 F 61 16 103/61 98 10/10/20 07:25 10/10/20 07:25 10/10/20 07:25 10/10/20 07:25 10/10/20 07:25 Oxygen Delivery Method Room Air Weight: 175 lb Body Mass Index (BMI) 25.1 Intake and Output for Last 24 Hours 10/08/20 10/09/20 10/10/20 23:59 23:59 23:59 Intake Total 400 / 400 Balance 400 / 400 General: Alert, Oriented x3, Cooperative, No apparent distress HEENT: Atraumatic, PERRLA, EOMI, Normocephalic Oral: Moist Mucosa, No Gingival or Mucosal Lesions/ Ulcerations Neck: Supple, No JVD, Negative Carotid Bruits, Trachea Midline, Thyroid Normal Size and Texture Lungs: Clear to auscultation, Normal air movement, No rhonchi, No wheeze, No rales Cardiovascular: Regular rate, Regular Rhythm, Normal S1, Normal S2, PMI Normal Abdomen: Bowel Sounds Present, Soft, Non Tender, Non-Distended, No Hepato- splenomegaly Extremities: No clubbing, No cyanosis, No edema Skin: No rashes, No breakdown Lymphatic: No Cervical, Supraclavicular, or Inguinal Adenopathy Neurological: Cranial nerves II-XII grossly intact, Neuro grossly intact Psych/Mental Status: Normal Affect, Appropriate, Alert and oriented to time, place, person, mood and affect Laboratory Results 10/09/20 14:57: WBC 9.0, RBC 5.26, Hgb 16.4, Hct 49.4, MCV 93.9, MCH 31.2, MCHC 33.2, RDW Std Deviation 44.2 H, RDW Coeff of Zari 12.8, Plt Count 253, MPV 10.3, Immature Gran % (Auto) 0.200, Neut % (Auto) 80.1 H, Lymph % (Auto) 12.2 L, [place] % (Auto) 6.0, Eos % (Auto) 1.1, Baso % (Auto) 0.4, Absolute Neuts (auto) 7.2, Absolute Lymphs (auto) 1.10, Nucleated RBC % 0 10/09/20 14:57: Sodium 137, Potassium 3.8, Chloride 109 H, Carbon Dioxide 26.0, Anion Gap 2 L, BUN 12, Creatinine 0.73, Estim Creat Clear Calc 151.39, Est GFR (MDRD) Af Amer 162, Est GFR (MDRD) Non-Af 134, BUN/Creatinine Ratio 16.5, Glucose 94, Calcium 9.5, Total Bilirubin 0.50, AST 21, ALT 48, Alkaline Phosphatase 75, Total Protein 8.0, Albumin 4.2, Globulin 3.8, Albumin/Globulin Ratio 1.1 10/09/20 21:43: Urine Opiates Screen NEGATIVE, Urine Methadone Screen NEGATIVE, Ur Barbiturates Screen NEGATIVE, Ur Phencyclidine Scrn NEGATIVE, Ur Amphetamines Screen NEGATIVE, U Methamphetamin-MDMA POSITIVE H, U Benzodiazepines Scrn POSITIVE H, Urine Cocaine Screen NEGATIVE, U Cannabinoids Screen POSITIVE H, Ur Drug Screen Comment Current Medications Acetaminophen (Acetaminophen 500 Mg Tablet) 500 mg PO Q4H PRN PRN PRN Reason: Temp > 100.4 F Al Hydroxide/Mg Hydroxide (Mag Hydrox/Al Hydrox/Simeth 30 Ml Udc) 30 ml PO Q6H PRN PRN PRN Reason: dyspesia Buprenorphine HCl (Buprenorphine Hcl 2 Mg Tab.Subl) 4 mg SL Q8H [facility]; Taper Stop: 10/12/20 15:59 Last Admin: 10/10/20 07:41 Dose: 4 mg Documented by: Clonazepam (Clonazepam 0.5 Mg Tablet) 0.5 mg PO BID@0800,1400 [facility] Clonidine (Clonidine Hcl 0.1 Mg Tablet) 0.1 mg PO Q8H PRN PRN PRN Reason: RESTLESSNESS Last Admin: 10/09/20 18:52 Dose: 0.1 mg Documented by: Dicyclomine HCl (Dicyclomine 10 Mg Capsule) 20 mg PO Q6H PRN PRN PRN Reason: Abdominal Discomfort Last Admin: 10/10/20 07:40 Dose: 20 mg Documented by: Gabapentin (Gabapentin 300 Mg Capsule) 300 mg PO Q8H PRN PRN PRN Reason: moderate to severe anxiety Last Admin: 10/10/20 07:40 Dose: 300 mg Documented by: Hydroxyzine Pamoate (Hydroxyzine Iva 25 Mg Capsule) 50 mg PO Q6H PRN PRN PRN Reason: mild anxiety Last Admin: 10/10/20 07:40 Dose: 50 mg Documented by: Ibuprofen (Ibuprofen 600 Mg Tablet) 600 mg PO Q8H PRN PRN PRN Reason: Pain Score 1-10 Last Admin: 10/09/20 18:52 Dose: 600 mg Documented by: Loperamide HCl (Loperamide 2 Mg Capsule) 2 mg PO Q4H PRN PRN PRN Reason: LOOSE STOOLS Methocarbamol (Methocarbamol 750 Mg Tablet) 1,500 mg PO Q6H PRN PRN PRN Reason: MUSCLE SPASM Last Admin: 10/10/20 07:40 Dose: 1,500 mg Documented by: Nicotine (Nicotine 21 Mg Patch) 21 mg TD DAILY [facility] Ondansetron HCl (Ondansetron 8 Mg Tablet) 8 mg PO Q8H PRN PRN PRN Reason: NAUSEA Last Admin: 10/09/20 18:52 Dose: 8 mg Documented by: Quetiapine Fumarate (Quetiapine 100 Mg Tablet) 150 mg PO QHS [facility] Last Admin: 10/09/20 20:36 Dose: 150 mg Documented by: Senna (Senna Tablet) 2 tablet PO QHS PRN PRN Reason: Constipation Sertraline HCl (Sertraline 50 Mg Tablet) 200 mg PO DAILY [facility]AL Sodium Chloride (0.9% Saline Lock 10 Ml Syringe) 10 - 40 ml IV UD PRN PRN Reason: SALINE FLUSH Trazodone HCl (Trazodone 100 Mg Tablet) 100 mg PO QHS PRN PRN PRN Reason: INSOMNIA Last Admin: 10/09/20 20:34 Dose: 100 mg Documented by: Medical Necessity - Tobacco Use Smoking Status: Current every day smoker Tobacco Use: Cigars Assessment/Plan All Active Problems Acute opioid withdrawal (Acute) This is a 30 years old male patient presented to the emergency room requesting admission for acute opioid withdrawal for medical stabilization. #1 acute opiate withdrawal: He is on tapering Subutex, as needed Catapres, Bentyl, Neurontin, Vistaril, Imodium, methocarbamol, Zofran and trazodone. Routine blood work was unremarkable. LFT was normal. Urine drug screen was positive for methamphetamines, benzodiazepines and cannabinoids. Patient still symptomatic and he is appropriate for inpatient treatment for the ongoing symptoms. His vital signs are stable. Plan to continue same treatment, consult [facility] program. #2 chronic hepatitis C: LFT was unremarkable, recommend follow-up with infectious disease as outpatient. #3 anxiety/depression: Continue Klonopin, Zoloft and Seroquel. #4 tobacco abuse: NicoDerm patch. #5 DVT prophylaxis: Low risk patient, no prophylaxis indicated. This note was generated with [employer] dictation software. It may contain incorrect words, spelling, and punctuation that were not noted in checking the note before signing. Inpatient E&M: 49944 Subs Hosp L2
[2020-10-10] MEDS: clonazePAM 0.5 MG Tablet PO ×2 (08:28→14:06)
[2020-10-10] MEDS: Sertraline 50 MG Tablet 200 MG PO (09:15)
[2020-10-10] MEDS: cloNIDine HCl 0.1 MG Tablet PO (10:13)
--- NOTE | 2020-10-10 12:04 | ADDICTION ---
This news writer met with PT in his room. PT A/Ox4 and participated actively in assessment and d/c planning. PT plans to f/u with [facility] and his primary counselor, Jesus Alberto KO-Ignacio, following d/c from [facility]. PT states that he has transportation coordinated for d/c. PT declined coordination with [facility] as he is engaged with [facility]. All assessments completed, d/c plan completed and faxed to [facility]. Also placed in PT chart.
[2020-10-10 14:07] VITALS: BP 115/67; PULSE 60; RESP 16; TEMP 37.1; O2SAT 100
[2020-10-10 20:10] VITALS: BP 136/90; PULSE 68; RESP 16; TEMP 36.6; O2SAT 99
[2020-10-10] MEDS: QUEtiapine 100 MG Tablet 150 MG PO (20:13)
[2020-10-10] MEDS: traZODone 100 MG Tablet PO (20:13)
[2020-10-11 05:33] VITALS: BP 107/66; PULSE 60; RESP 16; TEMP 36.6; O2SAT 96
[2020-10-11] MEDS: Methocarbamol 750 MG Tablet 1500 MG PO ×2 (08:40→15:52)
[2020-10-11] MEDS: Gabapentin 300 MG Capsule PO ×2 (08:40→15:52)
[2020-10-11] MEDS: Buprenorphine HCl 2 MG TAB.SUBL SL ×2 (08:40→15:51)
[2020-10-11] MEDS: clonazePAM 0.5 MG Tablet PO ×2 (08:40→15:52)
[2020-10-11 08:45] VITALS: PULSE 60
--- NOTE | 2020-10-11 09:25 | PN_ITS ---
Patient Problems: Active and Suspected Problems Acute opioid withdrawal (Acute) Subjective: Chief complaint: Follow-up after admission for acute opioid withdrawal. Patient seen and examined. No acute events overnight. Nursing staff reported that patient refused to take midnight Subutex. Today, patient is feeling better, no symptoms of withdrawal. Body aches and pains improved. I informed the patient that he has to follow with the Subutex taper for the medical stabilization program and he cannot miss any dose. He agreed. His vital signs are stable. - Physical Exam Vitals/I&O's: Vital Signs Temp Pulse Resp BP Pulse Ox 98 F 60 16 107/66 96 10/11/20 05:33 10/11/20 05:33 10/11/20 05:33 10/11/20 05:33 10/11/20 05:33 Oxygen Delivery Method Room Air Weight: 175 lb Body Mass Index (BMI) 25.1 Intake and Output for Last 24 Hours 10/09/20 10/10/20 10/11/20 23:59 23:59 23:59 Intake Total 2450 / 2450 Balance 2450 / 2450 General: Alert, Oriented x3, Cooperative, No apparent distress HEENT: Atraumatic, PERRLA, EOMI, Normocephalic Oral: Moist Mucosa, No Gingival or Mucosal Lesions/ Ulcerations Neck: Supple, No JVD, Negative Carotid Bruits, Trachea Midline, Thyroid Normal Size and Texture Lungs: Clear to auscultation, Normal air movement, No rhonchi, No wheeze, No rales Cardiovascular: Regular rate, Regular Rhythm, Normal S1, Normal S2, PMI Normal Abdomen: Bowel Sounds Present, Soft, Non Tender, Non-Distended, No Hepato- splenomegaly Extremities: No clubbing, No cyanosis, No edema Skin: No rashes, No breakdown Lymphatic: No Cervical, Supraclavicular, or Inguinal Adenopathy Neurological: Cranial nerves II-XII grossly intact, Neuro grossly intact Psych/Mental Status: Normal Affect, Appropriate, Alert and oriented to time, place, person, mood and affect Current Medications Acetaminophen (Acetaminophen 500 Mg Tablet) 500 mg PO Q4H PRN PRN PRN Reason: Temp > 100.4 F Al Hydroxide/Mg Hydroxide (Mag Hydrox/Al Hydrox/Simeth 30 Ml Udc) 30 ml PO Q6H PRN PRN PRN Reason: dyspesia Buprenorphine HCl (Buprenorphine Hcl 2 Mg Tab.Subl) 2 mg SL Q8H [facility]; Taper Stop: 10/12/20 15:59 Last Admin: 10/11/20 08:40 Dose: 2 mg Documented by: Clonazepam (Clonazepam 0.5 Mg Tablet) 0.5 mg PO BID@0800,1400 [facility] Last Admin: 10/11/20 08:40 Dose: 0.5 mg Documented by: Clonidine (Clonidine Hcl 0.1 Mg Tablet) 0.1 mg PO Q8H PRN PRN PRN Reason: RESTLESSNESS Last Admin: 10/10/20 10:13 Dose: 0.1 mg Documented by: Dicyclomine HCl (Dicyclomine 10 Mg Capsule) 20 mg PO Q6H PRN PRN PRN Reason: Abdominal Discomfort Last Admin: 10/10/20 07:40 Dose: 20 mg Documented by: Gabapentin (Gabapentin 300 Mg Capsule) 300 mg PO Q8H PRN PRN PRN Reason: moderate to severe anxiety Last Admin: 10/11/20 08:40 Dose: 300 mg Documented by: Hydroxyzine Pamoate (Hydroxyzine Iva 25 Mg Capsule) 50 mg PO Q6H PRN PRN PRN Reason: mild anxiety Last Admin: 10/10/20 15:52 Dose: 50 mg Documented by: Ibuprofen (Ibuprofen 600 Mg Tablet) 600 mg PO Q8H PRN PRN PRN Reason: Pain Score 1-10 Last Admin: 10/09/20 18:52 Dose: 600 mg Documented by: Loperamide HCl (Loperamide 2 Mg Capsule) 2 mg PO Q4H PRN PRN PRN Reason: LOOSE STOOLS Methocarbamol (Methocarbamol 750 Mg Tablet) 1,500 mg PO Q6H PRN PRN PRN Reason: MUSCLE SPASM Last Admin: 10/11/20 08:40 Dose: 1,500 mg Documented by: Nicotine (Nicotine 21 Mg Patch) 21 mg TD DAILY [facility] Last Admin: 10/10/20 09:17 Dose: Not Given Documented by: Ondansetron HCl (Ondansetron 8 Mg Tablet) 8 mg PO Q8H PRN PRN PRN Reason: NAUSEA Last Admin: 10/09/20 18:52 Dose: 8 mg Documented by: Quetiapine Fumarate (Quetiapine 100 Mg Tablet) 150 mg PO QHS [facility] Last Admin: 10/10/20 20:13 Dose: 150 mg Documented by: Senna (Senna Tablet) 2 tablet PO QHS PRN PRN Reason: Constipation Sertraline HCl (Sertraline 50 Mg Tablet) 200 mg PO DAILY [facility] Last Admin: 10/10/20 09:15 Dose: 200 mg Documented by: Sodium Chloride (0.9% Saline Lock 10 Ml Syringe) 10 - 40 ml IV UD PRN PRN Reason: SALINE FLUSH Trazodone HCl (Trazodone 100 Mg Tablet) 100 mg PO QHS PRN PRN PRN Reason: INSOMNIA Last Admin: 10/10/20 20:13 Dose: 100 mg Documented by: Medical Necessity - Tobacco Use Smoking Status: Current every day smoker Tobacco Use: Cigars Assessment/Plan All Active Problems Acute opioid withdrawal (Acute) This is a 30 years old male patient presented to the emergency room requesting admission for acute opioid withdrawal for medical stabilization. #1 acute opiate withdrawal: Remains on tapering Subutex, as needed Catapres, Bentyl, Neurontin, Vistaril, Imodium, methocarbamol, Zofran and trazodone. He refused mid night dose of Subutex. His symptoms improved, no more body aches or pains, no shakiness. Routine blood work was unremarkable. LFT was normal. Urine drug screen was positive for methamphetamines, benzodiazepines and cannabinoids. Discussed with the patient the importance of sticking with the tapering Subutex and he agreed. Plan to continue same treatment, DC home tomorrow. #2 chronic hepatitis C: LFT was unremarkable, recommend follow-up with infectious disease as outpatient. #3 anxiety/depression: Continue Klonopin, Zoloft and Seroquel. #4 tobacco abuse: NicoDerm patch. #5 DVT prophylaxis: Low risk patient, no prophylaxis indicated. This note was generated with [employer] dictation software. It may contain incorrect words, spelling, and punctuation that were not noted in checking the note before signing. Inpatient E&M: 13266 Subs Hosp L2
[2020-10-11 11:03] VITALS: BP 111/73; PULSE 67; RESP 18; TEMP 37.2; O2SAT 98
[2020-10-11] MEDS: Sertraline 50 MG Tablet 200 MG PO (11:06)
[2020-10-11 15:55] VITALS: BP 114/75; PULSE 62; RESP 16; TEMP 36.9; O2SAT 99
[2020-10-11 20:21] VITALS: BP 119/73; PULSE 63; RESP 16; TEMP 36.5; O2SAT 98
[2020-10-11] MEDS: cloNIDine HCl 0.1 MG Tablet PO (20:28)
[2020-10-11] MEDS: traZODone 100 MG Tablet PO (20:28)
[2020-10-11] MEDS: QUEtiapine 100 MG Tablet 150 MG PO (20:28)
[2020-10-12 03:08] VITALS: BP 102/66; PULSE 63; RESP 16; TEMP 36.3; O2SAT 100
[2020-10-12] MEDS: Gabapentin 300 MG Capsule PO (03:12)
[2020-10-12] MEDS: Buprenorphine HCl 2 MG TAB.SUBL SL (03:12)
[2020-10-12] MEDS: Methocarbamol 750 MG Tablet 1500 MG PO (03:12)
--- NOTE | 2020-10-12 07:29 | DCINST_ITS ---
- Discharge Diagnoses Current Active Problems: Current Active and Chronic Problems Acute opioid withdrawal (Acute) Anxiety and depression (Chronic) Hepatitis C antibody positive in blood (Chronic) Nicotine abuse (Chronic) You will use the following diet at home:: Regular Your food should be the consistency of: Regular Discharge Activity: Return to Normal Activity Weight Bearing Status: Full weight bearing Call your doctor if you observe: Fever of 101 or Higher, Shortness of breath, Dizziness, Fainting spells, Chest pain, Increased palpitations (irregular heartbeat), Uncontrolled pain Additional Instructions: Please follow-up with the [facility] program. Allergies/Adverse Reactions: Allergies No Known Allergies Allergy (Verified 10/09/20 13:37) Medications to take at Discharge Clonazepam [Klonopin] 0.5 mg PO BID PRN PRN 03/13/20 Quetiapine Fumarate [Seroquel] 150 mg PO QHS 10/09/20 Sertraline HCl [Zoloft] 200 mg PO DAILY 10/09/20 Primary Care Physician: Ruslan Diamond MD [Primary Care Provider] - Please follow up with your Primary Care Physician in: 4-6 weeks. Test Results: Test results from this visit will be discussed in further detail at your follow- up appointment, if applicable.
[2020-10-12 08:08] VITALS: BP 118/76; PULSE 67; RESP 16; TEMP 36.4; O2SAT 97
[2020-10-12] MEDS: Sertraline 50 MG Tablet 200 MG PO (08:15)
[2020-10-12] MEDS: clonazePAM 0.5 MG Tablet PO (08:15)
--- NOTE | 2020-10-12 09:24 | PCM.DC.SUM ---
Discharge Date and Diagnosis - Problem List Patient Problems: Active and Suspected Problems Acute opioid withdrawal (Acute) Date of Admission: 10/09/20 Date of Discharge: 10/12/20 - Primary Discharge Diagnosis Acute Problems: Active Problems Acute opioid withdrawal (Acute) admitted for medical stabilization. - Secondary Discharge Diagnosis Chronic Problems: Chronic Problems Insomnia (Chronic) Anxiety and depression (Chronic) Hepatitis C antibody positive in blood (Chronic) Polysubstance (including opioids) dependence with physiol dependence (Chronic) Nicotine abuse (Chronic) Hospital Course and Treatment Operations: None Procedures: None Summary of Care Provided: Patient seen and examined on the day of discharge and appeared to be stable to be discharged home. Symptoms of withdrawal are resolved. Denied any complaints. His vital signs are stable. The patient is a 30 year old M presented to the emergency room requesting admission for acute opioid withdrawal for medical stabilization. Patient has been using heroin around 2 g every day since at least 13 years. In the past, he was admitted for medical stabilization but he relapsed. He presented with symptoms of feeling cold and hot, body aches and pains as well as abdominal cramps with nausea. His routine blood work was unremarkable. LFT was normal. Urine drug screen was positive for methamphetamines, benzodiazepines and cannabinoids. Patient was admitted to [facility] floor, started on acute opioid withdrawal protocol with tapering Subutex, as needed Catapres, Bentyl, Neurontin, Vistaril, Imodium, methocarbamol, Zofran and trazodone. His vital signs were stable throughout admission. With above-mentioned treatment, patient symptom is significantly improved and upon discharge, he has no more symptoms. Muscle aches and pains as well as anxiety and restlessness resolved. Patient was evaluated by [facility] and plan was for outpatient treatment. Patient discharged home in a stable condition, discharged on his previous home medications including Klonopin, Zoloft and Seroquel, plan to follow-up with [facility] as outpatient, recommended follow-up with PCP in 4 to 6 weeks. Patient Problems: Active and Suspected Problems Acute opioid withdrawal (Acute) - Physical Exam Vitals/I&O's: Vital Signs Temp Pulse Resp BP Pulse Ox 97.5 F L 67 16 118/76 97 10/12/20 08:08 10/12/20 08:08 10/12/20 08:08 10/12/20 08:08 10/12/20 08:08 Oxygen Delivery Method Room Air Weight: 175 lb Body Mass Index (BMI) 25.1 Intake and Output for Last 24 Hours 10/10/20 10/11/20 10/12/20 23:59 23:59 23:59 Intake Total 2450 / 2450 800 / 800 Balance 2450 / 2450 800 / 800 General: Alert, Oriented x3, Cooperative, No apparent distress HEENT: Atraumatic, PERRLA, EOMI, Normocephalic Oral: Moist Mucosa, No Gingival or Mucosal Lesions/ Ulcerations Neck: Supple, No JVD, Negative Carotid Bruits, Trachea Midline, Thyroid Normal Size and Texture Lungs: Clear to auscultation, Normal air movement, No rhonchi, No wheeze, No rales Cardiovascular: Regular rate, Regular Rhythm, Normal S1, Normal S2, PMI Normal Abdomen: Bowel Sounds Present, Soft, Non Tender, Non-Distended, No Hepato-splenomegaly Extremities: No clubbing, No cyanosis, No edema Skin: No rashes, No breakdown Lymphatic: No Cervical, Supraclavicular, or Inguinal Adenopathy Neurological: Cranial nerves II-XII grossly intact, Neuro grossly intact Psych/Mental Status: Normal Affect, Appropriate Discharge Activity: Return to Normal Activity Weight Bearing Status: Full weight bearing Call your doctor if you observe: Fever of 101 or Higher, Shortness of breath, Dizziness, Fainting spells, Chest pain, Increased palpitations (irregular heartbeat), Uncontrolled pain Home Medications: Medications to take at Discharge Clonazepam [Klonopin] 0.5 mg PO BID PRN PRN 03/13/20 Quetiapine Fumarate [Seroquel] 150 mg PO QHS 10/09/20 Sertraline HCl [Zoloft] 200 mg PO DAILY 10/09/20 Primary Care Physician: Ruslan Diamond MD [Primary Care Provider] - Please follow up with your Primary Care Physician in: 4-6 weeks. Disposition: Home Minutes spent on discharge:: 27 Patient Condition:: Stable Medical Necessity - Tobacco Use Smoking Status: Current every day smoker Tobacco Use: Cigars Meaningful Use Info Meaningful Use Diagnoses (Choose all that apply): None applicable Inpatient E&M: [id number] [facility]
== END 2020-10-12 08:51 | disposition home or self-care (01) | DRG 773 ==
LOC: ED 14:00 → MS3 14:37
PROVIDERS: Admitting Provider Internal Medicine; Emergency Provider Emergency Medicine; PCP Family Medicine; Visit Provider Hospitalist
DX: F11.23 Opioid dependence with withdrawal (principal); B18.2 Chronic viral hepatitis C; F32.9 Major depressive disorder, single episode, unspecified; F41.9 Anxiety disorder, unspecified; G47.00 Insomnia, unspecified; F17.290 Nicotine dependence, other tobacco product, uncomplicated
CPT/HCPCS: 36415; 80053; 80307; 85025; 99283; 99406